=== PATIENT | male | born 1945 | race Caucasian/White ===

== ENCOUNTER 2018-09-11 11:19 | Outpatient (CLI) | payer OTHER, SELFPAY ==
[2018-09-11 13:33] LABS: ALT 24 U/L (12-78); AST 19 U/L (15-37); Albumin 4.5 g/dL (3.4-5.0); Alkaline Phosphatase 80 U/L (46-116); Anion Gap 8.4 mmol/L (3-11); BUN 18 mg/dL (7-18); Bilirubin, Total 1.1 mg/dL (0.2-1.0); CO2 29.6 mmol/L (21.0-32.0); CREATININE 0.91 mg/dL (0.70-1.30); Calcium 10.1 mg/dL (8.5-10.1); Chloride 102 mmol/L (98-107); Cholesterol 145 mg/dL (50-200); Glucose 103 mg/dL (70-100); HDL Cholesterol 65 mg/dL (40-60); LDL CHOLESTEROL 63 mg/dL (<100); Potassium 4.5 mmol/L (3.5-5.1); Sodium 140 mmol/L (136-145); Total Protein 7.6 g/dL (6.4-8.2); Triglyceride 61 mg/dL (30-150)
== END 2018-09-11 11:39 ==
PROVIDERS: PCP Family Medicine; Visit Provider Family Medicine
DX: I10 Essential (primary) hypertension (principal)
CPT/HCPCS: 36415; 80053; 80061; 83721

== ENCOUNTER 2020-04-29 03:40 | Outpatient (CLI) | payer OTHER, SELFPAY ==
[2020-04-29 13:10] LABS: ALT 19 U/L (16-63); AST 17 U/L (15-37); Albumin 4.4 g/dL (3.4-5.0); Alkaline Phosphatase 76 U/L (46-116); Anion Gap 5.4 mmol/L (3-11); BUN 13 mg/dL (7-18); Bilirubin, Total 1.3 mg/dL (0.2-1.0); CO2 29.6 mmol/L (21.0-32.0); CREATININE 0.76 mg/dL (0.70-1.30); Calculated LDL 41 mg/dL (<100); Chloride 104 mmol/L (98-107); Cholesterol 107 mg/dL (<200); Glucose 84 mg/dL (74-106); HDL Cholesterol 55 mg/dL (40-60); Potassium 4.5 mmol/L (3.5-5.1); Sodium 139 mmol/L (136-145); Triglyceride 57 mg/dL (<150)
[2020-04-29 22:30] LABS: PSA, Diagnostic 4.6 ng/mL (0.0-6.5)
== END 2020-04-29 04:00 ==
PROVIDERS: PCP Family Medicine; Visit Provider Family Medicine
DX: E78.5 Hyperlipidemia, unspecified (principal); I25.10 Atherosclerotic heart disease of native coronary artery without angina pectoris; N40.0 Benign prostatic hyperplasia without lower urinary tract symptoms
CPT/HCPCS: 36415; 80053; 80061; 84153

== ENCOUNTER 2020-12-18 03:01 | Outpatient (CLI) | payer OTHER, SELFPAY ==
[2020-12-18 12:53] LABS: ALT 19 U/L (16-63); AST 14 U/L (15-37); Albumin 4.4 g/dL (3.4-5.0); Alkaline Phosphatase 65 U/L (46-116); Anion Gap 9.8 mmol/L (3-11); BUN 16 mg/dL (7-18); Bilirubin, Total 1.4 mg/dL (0.2-1.0); CO2 28.2 mmol/L (21.0-32.0); CREATININE 1.1 mg/dL (0.70-1.30); Calcium 9.2 mg/dL (8.5-10.1); Calculated LDL 58 mg/dL (<100); Chloride 102 mmol/L (98-107); Cholesterol 132 mg/dL (<200); Glucose 113 mg/dL (74-106); HDL Cholesterol 53 mg/dL (40-60); Potassium 4.4 mmol/L (3.5-5.1); Sodium 140 mmol/L (136-145); Total Protein 7.1 g/dL (6.4-8.2); Triglyceride 107 mg/dL (<150)
[2020-12-18 18:11] LABS: PSA, Diagnostic 4.4 ng/mL (0.0-6.5)
== END 2020-12-18 03:02 | disposition home or self-care (01) ==
LOC: LOS 03:01
PROVIDERS: PCP Family Medicine; Visit Provider Family Medicine
DX: I10 Essential (primary) hypertension (principal); I25.10 Atherosclerotic heart disease of native coronary artery without angina pectoris; N40.0 Benign prostatic hyperplasia without lower urinary tract symptoms
CPT/HCPCS: 36415; 80053; 80061; 84153

== ENCOUNTER 2021-05-06 15:59 | Inpatient (IN) | payer OTHER, SELFPAY ==
[2021-05-06] VITALS (27 sets, daily range): BP systolic 116–162; BP diastolic 60–87; PULSE 62–73; RESP 10–23; TEMP 35.5–36.5; O2SAT 95–98
--- NOTE | 2021-05-06 16:00 | RT.EKG_ITS ---
APPROVED REPORT Exam: Resting ECG Reason for Exam: possible stroke Patient Location: E HR:67 bpm ECG Measurements Heart Rate 67 AXIS [place] 162 P 55 QRSd 80 QRS 26 QT 376 T 37 QTc 397 Conclusion Sinus rhythm...normal P axis, V-rate 60- 99
--- NOTE | 2021-05-06 16:45 | DI.CT_ITS ---
Exam(s) CT BRAIN NECK CTA EXAM: CT BRAIN NECK CTA CLINICAL HISTORY: cva, rt facial droop. TECHNIQUE: Imaging Protocol: Axial CT angiography was performed with multi-slice acquisition and mu lti-planar and/or 3D reconstructions. CONTRAST MATERIAL: Intravenous: Omnipaque 350 Contrast volume:85 cc COMPARISON: No exams were available for comparison FINDINGS: CT Head W/O and W contrast: Ventricles and Extra axial spaces: Normal in size and morphology for the patient's age. Hemorrhage: None. Cerebral parenchyma: mild white matter changes of small vessel disease. Mild atrophy. Midline shift: None. Brainstem/Cerebellum: Normal. Calvarium: Normal. Visualized Paranasal sinuses/Mastoids: Clear. Soft Tissues: Unremarkable. Enhancement: Normal. CTA Brain W: Internal Carotid Arteries: Petrous: Normal. Cavernous: Normal. Cerebral: Normal. Middle Cerebral Arteries: Right: No aneurysm, occlusion or significant stenosis. Left: No aneurysm, occlusion or significant stenosis. Anterior Cerebral Arteries: Right: No aneurysm, occlusion or significant stenosis. Left: No aneurysm, occlusion or significant stenosis. Posterior cerebral Arteries: Right: No aneurysm, occlusion or significant stenosis. Left: No aneurysm, occlusion or significant stenosis. Vertebral Arteries: Right: No aneurysm, occlusion or significant stenosis. Left: No aneurysm, occlusion or significant stenosis. Basilar Artery: No aneurysm, occlusion or significant stenosis. CTA Neck W: Common Carotid: Right: No aneurysm, occlusion or significant stenosis. Scattered calcific plaque. Left: No aneurysm, occlusion or significant stenosis. Scattered calcific plaque. External Carotid: Right: No aneurysm, occlusion or significant stenosis. Left: No aneurysm, occlusion or significant stenosis. Internal Carotid: Right: No aneurysm, occlusion or significant stenosis. Calcific plaque proximally. Proximal 50 pe rcent stenosis. Left: No aneurysm, occlusion or significant stenosis. Calcific plaque proximally. Mild stenosis, l ess than 50 percent. Vertebral Artery: Right: No aneurysm, occlusion or significant stenosis. Left: No aneurysm, occlusion or significant stenosis. Lung Apices: Emphysematous changes. Bones: Degenerative changes in the cervical spine. Soft Tissues: Normal. IMPRESSION: 1. Normal CTA examination of the [place]. 2. Mild atrophy and white matter changes of small vessel disease. 3. Calcific plaque in the proximal internal carotid arteries. Approximate 50 percent stenosis right proximal internal carotid artery. Mild, less than 50 percent, stenosis of proximal left internal car otid artery. RADIATION DOSE DELIVERED: 2,152.34mGy.cm Total DLP DATA REPOSITORY: All CT scans at this facility are submitted to the National Radiology Data Registry (NRDR) Dose Index Registry (DIR) with the [employer] (ACR). RADIATION OPTIMIZATION: All CT scans at this facility use at least one of these dose optimization te chniques: automated exposure control; mA and/or kV adjustment per patient size (includes targeted exa ms where dose is matched to clinical indication); or iterative reconstruction.
[2021-05-06 17:19] LABS: Abs Immature Grans 0.06 10^3/uL (0.0-0.06); Absolute Basophil Count 0.03 10^3/uL (0.0-0.2); Absolute Eosinophil Count 0.11 10^3/uL (0.0-0.7); Absolute Lymphocyte Count 0.92 10^3/uL (1.2-3.4); Absolute Monocyte Count 0.94 10^3/uL (0.1-0.8); Absolute Neutrophil Count 7.55 10^3/uL (1.2-6.7); Basophils % 0.3; Eosinophils % 1.1; HCT 46.4 % (40.0-50.0); HGB 16.2 g/dL (13.5-17.5); Immature Grans % 0.6; Lymphocytes % 9.6; MCH 34.9 pg (27.0-33.0); MCHC 34.9 % (32.0-36.0); MPV 8.8 fL (8.0-11.0); Monocytes % 9.8; Neutrophils % 78.6; Nucleated RBC 0 %; Platelet Count 191 10^3/uL (130-400); RBC 4.64 10^6/uL (4.36-5.78); RDW 12.5 % (11.8-14.1); RDW-SD 46.9 fL; WBC 9.61 10^3/uL (4.4-10.8)
[2021-05-06 17:22] LABS: Source Nasal/Nares
[2021-05-06 17:28] LABS: Magnesium 2.1 mg/dL (1.8-2.4)
[2021-05-06 17:35] LABS: ALT 18 U/L (16-63); AST 20 U/L (15-37); Albumin 4.3 g/dL (3.4-5.0); Alkaline Phosphatase 56 U/L (46-116); Anion Gap 6.7 mmol/L (3-11); BUN 14 mg/dL (7-18); Bilirubin, Total 1.7 mg/dL (0.2-1.0); CO2 29.3 mmol/L (21.0-32.0); CREATININE 0.8 mg/dL (0.70-1.30); Calcium 9.5 mg/dL (8.5-10.1); Chloride 100 mmol/L (98-107); Glucose 88 mg/dL (74-106); Sodium 136 mmol/L (136-145); Total Protein 7.2 g/dL (6.4-8.2)
[2021-05-06 17:36] LABS: Troponin I < 0.05 ng/mL (<0.06)
[2021-05-06] MEDS: Omnipaque 350 MG/ML 100 ML BTL IJ (17:49)
--- NOTE | 2021-05-06 17:52 | W.ED.GENAD ---
Discharge Plan Disposition Patient Disposition: [facility] INPATIENT Condition: Serious Discharge Details Clinical Impression: Weakness on right side of face, Acute CVA (cerebrovascular accident) Primary Care Provider: Aysha Odonnell ED Provider: Deny Navarro Home Meds and New Rx's Prescriptions: No Action pravastatin 20 mg tablet 20 mg PO DAILY Qty: 90 RF: 4 nitroglycerin [Nitrostat] 0.4 mg tablet, sublingual 0.4 mg Sublingual PRN Qty: 25 RF: 3 metoprolol succinate 50 mg tablet extended release 24 hr 50 mg PO DAILY Qty: 90 RF: 4 meloxicam 15 mg tablet 15 mg PO DAILY PRN (Reason: pain (scale score 4-6)) Qty: 90 RF: 5 hydrochlorothiazide 12.5 mg tablet 12.5 mg PO QAM Qty: 90 RF: 4 hydrocodone-acetaminophen 5-325 mg tablet 2 tab PO TID MDD 6 PRN (Reason: pain) Qty: 42 RF: 0 aspirin [Ecotrin] 325 MG tablet,delayed release (DR/EC) 325 mg PO DAILY RF: 0 Medical Decision Making 75-year-old male with history of hypertension, hyperlipidemia, arteriosclerotic cardiovascular disease, polycythemia vera, here with generalized weakness, fatigue and mild intermittent headache over the past 3 days. Also now with drooling and right facial droop over the past 2 days. EKG was reviewed and interpreted by me: Please see report, sinus rhythm and nondiagnostic. Concern concern for CVA. CT/ CTA of the head was interpreted by radiology: IMPRESSION: 1. No acute intracranial findings on initial unenhanced images. 2. Diffuse cerebral atrophy and age-related periventricular white matter changes. 3. CTA head within normal limits. No large vessel occlusion. No aneurysm. 4. ASPECTS ([place] Stroke Program Early CT Score) = 10. CTA of the neck was interpreted by radiology: IMPRESSION: 1. Calcific plaque involving the origin and proximal portion of the right internal carotid artery producing 50% stenosis. 2. Calcified plaque involving the origin and proximal portion of the left internal carotid artery producing 30% stenosis. 3. Patent vertebral arteries. Patient was given aspirin 325 mg. Plan to admit for observation for CVA. I called and spoke with Dr. Veliz, discussed ED presentation and course, he will admit the patient. Lab Data Lab results reviewed: Yes I reviewed the patient's lab results. HPI General Mode of arrival: ambulatory. Date/Time Provider Initiated Documentation: 05/06/21 16:54. Limitations to Documentation: no limitations. Information obtained by: patient. HPI Narrative: 75-year-old male with multiple medical problems occluding history of hypertension, hyperlipidemia, polycythemia vera, ASCVD, here with chief complaints of facial weakness. Patient notes feeling fatigued for the past 3 days with associated dizziness and generalized weakness. He states he has had a mild headache that has been intermittent since onset. Patient notes right facial weakness over the past 2 days. He states he is woke up drooling from the right side of his mouth. Symptoms are moderate. No modifiers. No prior history of CVA. Related Data Home Medications Medication Instructions Recorded Confirmed aspirin [Ecotrin] 325 mg PO DAILY tab-cap 01/26/13 05/06/21 hydrochlorothiazide 12.5 mg tablet 12.5 mg PO QAM #90 tab 03/30/21 05/06/21 hydrocodone 5 mg-acetaminophen 325 2 tab PO TID PRN #42 tab MDD 6 03/30/21 05/06/21 mg tablet meloxicam 15 mg tablet 15 mg PO DAILY PRN #90 tab 03/30/21 05/06/21 metoprolol succinate 50 mg 50 mg PO DAILY #90 tab 03/30/21 05/06/21 tablet,extended release 24 hr nitroglycerin 0.4 mg sublingual 0.4 mg SUBLINGUAL PRN #25 tab 03/30/21 05/06/21 tablet pravastatin 20 mg tablet 20 mg PO DAILY #90 tab-cap 03/30/21 05/06/21 Previous Rx's Medication Instructions Recorded hydrochlorothiazide 12.5 mg tablet 12.5 mg PO QAM #90 tab 03/30/21 hydrocodone 5 mg-acetaminophen 325 2 tab PO TID PRN #42 tab MDD 6 03/30/21 mg tablet meloxicam 15 mg tablet 15 mg PO DAILY PRN #90 tab 03/30/21 metoprolol succinate 50 mg 50 mg PO DAILY #90 tab 03/30/21 tablet,extended release 24 hr nitroglycerin 0.4 mg sublingual 0.4 mg SUBLINGUAL PRN #25 tab 03/30/21 tablet pravastatin 20 mg tablet 20 mg PO DAILY #90 tab-cap 03/30/21 Allergies Allergy/AdvReac Type Severity Reaction Status Date / Time No Known Allergies Allergy Unverified 05/06/21 16:07 General Stated Complaint: CVA/TIA SREEDHAR: 2 Review of Systems All systems reviewed & are unremarkable except as noted in HPI and below Constitutional Constitutional: Denies fever(s) Cardiovascular Cardiovascular: Denies chest pain Neurologic Neurologic: Reports as per HPI [facility] Medical History Alcohol abuse 10/03/08 quit 2004 ASCVD (arteriosclerotic cardiovascular disease) Chronic pain disorder CONTRACT 01/19/16 06/06/17 CONTROLLED SUBSTANCE AGREEMENT~RENEWED Cyst of kidney, acquired RIGHT; stent placed approx. 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 Heart disease Brother Diabetes Heart disease Grandfather No problems noted. Grandfather No problems noted. Grandmother No problems noted. Grandmother No problems noted. Sister No problems noted. Sister No problems noted. Sister No problems noted. Brother Neoplasm Brother Stroke Son No problems noted. Daughter No problems noted. Daughter No problems noted. Social History Smoking/Tobacco Use Status: Former Tobacco Use Quit Date: 09/05/06 Second Hand Exposure: Yes Smoking risk assessment performed?: Yes Alcohol Intake: former Drug use: Never Substance use type: does not use Caregiver/Support person: No Household members: spouse Housing: house Communication Needs: None Do you need help understanding health information?: Rarely Pets and animals: Yes Pets and animals: cat(s) and dog(s) Sexually active: Yes Do you think of yourself as: straight/heterosexual Current gender identity: male What is your relationship status?: How often do you talk on the phone with friends or family?: twice per week How often do you get together with friends or relatives?: once per week How often do you attend restorationist or taoism services?: decline to answer Do you belong to any clubs or organized social groups?: no Panel score (0-1 are the most socially isolated patients): 2 What type of physical activity do you participate in: running Duration: 45-60 minutes/day Frequency: 1-2 times per week Rubia/Orthodoxy: Lutheran Special rubia needs: No Seatbelt use: sometimes Drive intox or ride w/intox sales warehouse driver: No Do you feel safe at home: Yes Do you feel safe in your relationship?: Yes Exam Const General: cooperative and no acute distress HENMT Head: normocephalic and atraumatic Mouth: moist mucous membranes Eyes Conjunctivae: normal conjunctivae Sclera: normal sclerae EOM: EOM intact bilaterally Neck Neck: trachea midline and supple Resp Auscultation: clear to auscultation bilaterally, no rales, no rhonchi and no wheezes Cardio Rate: regular rate and not tachycardic Rhythm: regular rhythm GI Palpation: soft, not firm, no guarding, no masses, not rigid and nontender Skin General skin exam: no rashes or lesions noted Neuro General: patient alert, patient awake, patient oriented x3 and tone normal Cranial Nerves: PERRL, accommodation normal, EOM intact bilaterally, no nystagmus, facial strength abnormal, tongue midline and able to elevate shoulders bilaterally Cognition: normal cognition Speech: speech normal Motor: strength 5/5 throughout (Extremities) and other (Mild right facial droop sparing right forehead) Sensory Exam: no sensory deficits noted Extrem General: no edema Psych Appearance: grossly normal Mental Status: mental status grossly normal Speech and Movement: speech and movement normal Course Vital Signs Vital signs: Vital Signs Pulse 66 05/06/21 16:03 Respiratory Rate 18 05/06/21 16:03 Blood Pressure 148/74 H 05/06/21 16:03 Pulse Oximetry 98 05/06/21 16:03 Pulse 66 05/06/21 16:03 Respiratory Rate 18 05/06/21 16:03 Respiratory Effort Non-Labored 05/06/21 16:09 Blood Pressure 148/74 H 05/06/21 16:03 Blood Pressure Position Sitting 05/06/21 16:03 Pulse Oximetry 98 05/06/21 16:03 Oxygen Delivery Method Room Air 05/06/21 16:03 Oxygen Flow Rate 0 05/06/21 16:03 Pain Level 6 05/06/21 16:03 Lab/Test Results Lab/Test Results: Laboratory Tests Range/Units 05/06/21 05/06/21 05/06/21 16:40 16:40 16:40 WBC (4.4-10.8) 10^3/uL 9.61 RBC (4.36-5.78) 10^6/uL 4.64 Hgb (13.5-17.5) g/dL 16.2 Hct (40.0-50.0) % 46.4 MCV (80-95) fL 100.0 H MCH (27.0-33.0) pg 34.9 H MCHC (32.0-36.0) % 34.9 RDW (11.8-14.1) % 12.5 Plt Count (130-400) 10^3/uL 191 MPV (8.0-11.0) fL 8.8 Immature Gran % 0.6 Neutrophils % 78.6 Lymphocytes % 9.6 Monocytes % 9.8 Eosinophils % 1.1 Basophils % 0.3 Nucleated RBC % % 0 Absolute Neutrophils (1.2-6.7) 10^3/uL 7.55 H Absolute Lymphocytes (1.2-3.4) 10^3/uL 0.92 L Absolute Monocytes (0.1-0.8) 10^3/uL 0.94 H Absolute Eosinophils (0.0-0.7) 10^3/uL 0.11 Absolute Basophils (0.0-0.2) 10^3/uL 0.03 Sodium (136-145) mmol/L 136 Potassium (3.5-5.1) mmol/L 4.0 Chloride (98-107) mmol/L 100 Carbon Dioxide (21.0-32.0) mmol/L 29.3 Anion Gap (3-11) mmol/L 6.7 BUN (7-18) mg/dL 14 Creatinine (0.70-1.30) mg/dL 0.8 Estimated GFR/1.73 m2 (mL/min/1.73m2) >= 60.00 Glucose (74-106) mg/dL 88 Calcium (8.5-10.1) mg/dL 9.5 Magnesium (1.8-2.4) mg/dL 2.1 Total Bilirubin (0.2-1.0) mg/dL 1.7 H AST (15-37) U/L 20 ALT (16-63) U/L 18 Alkaline Phosphatase (46-116) U/L 56 Troponin I (<0.06) ng/mL < 0.05 Total Protein (6.4-8.2) g/dL 7.2 Albumin (3.4-5.0) g/dL 4.3 COVID-19 Source Range/Units 05/06/21 17:06 WBC (4.4-10.8) 10^3/uL RBC (4.36-5.78) 10^6/uL Hgb (13.5-17.5) g/dL Hct (40.0-50.0) % MCV (80-95) fL MCH (27.0-33.0) pg MCHC (32.0-36.0) % RDW (11.8-14.1) % Plt Count (130-400) 10^3/uL MPV (8.0-11.0) fL Immature Gran % Neutrophils % Lymphocytes % Monocytes % Eosinophils % Basophils % Nucleated RBC % % Absolute Neutrophils (1.2-6.7) 10^3/uL Absolute Lymphocytes (1.2-3.4) 10^3/uL Absolute Monocytes (0.1-0.8) 10^3/uL Absolute Eosinophils (0.0-0.7) 10^3/uL Absolute Basophils (0.0-0.2) 10^3/uL Sodium (136-145) mmol/L Potassium (3.5-5.1) mmol/L Chloride (98-107) mmol/L Carbon Dioxide (21.0-32.0) mmol/L Anion Gap (3-11) mmol/L BUN (7-18) mg/dL Creatinine (0.70-1.30) mg/dL Estimated GFR/1.73 m2 (mL/min/1.73m2) Glucose (74-106) mg/dL Calcium (8.5-10.1) mg/dL Magnesium (1.8-2.4) mg/dL Total Bilirubin (0.2-1.0) mg/dL AST (15-37) U/L ALT (16-63) U/L Alkaline Phosphatase (46-116) U/L Troponin I (<0.06) ng/mL Total Protein (6.4-8.2) g/dL Albumin (3.4-5.0) g/dL COVID-19 Source Nasal/Nares
--- NOTE | 2021-05-06 18:15 | DI.VRAD_ITS ---
PROCEDURE INFORMATION: Exam: CT Angiography Head With Contrast, Arteriography Exam date and time: 05/06/2021 4:57 PM Age: 75 years old Clinical indication: CVA, RT facial droop TECHNIQUE: Imaging protocol: Computed tomography angiography of the head with contrast. Exam focused on the arteries. 3D rendering (Not supervised by radiologist): MIP and/or 3D reconstructed images were created by the technologist. Radiation optimization: All CT scans at this facility use at least one of these dose optimization techniques: automated exposure control; mA and/or kV adjustment per patient size (includes targeted exams where dose is matched to clinical indication); or iterative reconstruction. Contrast material: OMNIPAQUE 350; Contrast volume: 85 ml; Contrast route: INTRAVENOUS (IV); COMPARISON: No relevant prior studies available. FINDINGS: ANTERIOR CIRCULATION: Right internal carotid artery: Unremarkable. Intracranial segment is patent with no significant stenosis. No aneurysm. Right middle cerebral artery: Unremarkable. No occlusion or significant stenosis. No aneurysm. Right anterior cerebral artery: Unremarkable. No occlusion or significant stenosis. No aneurysm. Left internal carotid artery: Unremarkable. Intracranial segment is patent with no significant stenosis. No aneurysm. Left middle cerebral artery: Unremarkable. No occlusion or significant stenosis. No aneurysm. Left anterior cerebral artery: Unremarkable. No occlusion or significant stenosis. No aneurysm. POSTERIOR CIRCULATION: Right vertebral artery: Unremarkable. No occlusion or significant stenosis. No aneurysm. Left vertebral artery: Unremarkable. No occlusion or significant stenosis. No aneurysm. Basilar artery: Unremarkable. No occlusion or significant stenosis. No aneurysm. Right posterior cerebral artery: Unremarkable. No occlusion or significant stenosis. No aneurysm. Left posterior cerebral artery: Unremarkable. No occlusion or significant stenosis. No aneurysm. Brain: Periventricular white matter areas of decreased density which are likely secondary to chronic ischemia from microvascular change. Scattered old lacunar infarcts in each basal ganglia region. No acute intracranial hemorrhage. Diffuse cerebral atrophy. Cerebral ventricles: Ventricular prominence in this patient with diffuse cerebral atrophy. Bones/joints: Unremarkable. No acute fracture. Mastoid air cells: No mastoiditis. Soft tissues: Unremarkable. Paranasal sinuses: Trace fluid in the dependent portion of the right maxillary sinus. Partial ethmoid and right sphenoid sinusitis. IMPRESSION: 1. No acute intracranial findings on initial unenhanced images. 2. Diffuse cerebral atrophy and age-related periventricular white matter changes. 3. CTA head within normal limits. No large vessel occlusion. No aneurysm. 4. ASPECTS ([place] Stroke Program Early CT Score) = 10. PROCEDURE INFORMATION: Exam: CT Angiography Neck With Contrast Exam date and time: 05/06/2021 4:57 PM Age: 75 years old Clinical indication: CVA, RT facial droop TECHNIQUE: Imaging protocol: Computed tomography angiography of the neck with contrast. 3D rendering (Not supervised by radiologist): MIP and/or 3D reconstructed images were created by the technologist. Radiation optimization: All CT scans at this facility use at least one of these dose optimization techniques: automated exposure control; mA and/or kV adjustment per patient size (includes targeted exams where dose is matched to clinical indication); or iterative reconstruction. Contrast material: OMNIPAQUE 350; Contrast volume: 85 ml; Contrast route: INTRAVENOUS (IV); COMPARISON: No relevant prior studies available. FINDINGS: Right common carotid artery: Scattered calcific plaque within the right common carotid artery without significant stenosis or occlusion. Right internal carotid artery: Calcific plaque involving the origin and proximal portion of the right internal carotid artery producing 50% stenosis. Right external carotid artery: No occlusion or stenosis of the origin. Left common carotid artery: Scattered calcific plaque within the left common carotid artery without significant stenosis or occlusion. Left internal carotid artery: Calcified plaque involving the origin and proximal portion of the left internal carotid artery producing 30% stenosis. Left external carotid artery: No occlusion or stenosis of the origin. Right vertebral artery: No stenosis. No dissection or occlusion. Left vertebral artery: No stenosis. No dissection or occlusion. Soft tissues: Normal. No significant soft tissue swelling. Bones/joints: No acute fracture. Lungs: Scattered bulla within each superior lung. IMPRESSION: 1. Calcific plaque involving the origin and proximal portion of the right internal carotid artery producing 50% stenosis. 2. Calcified plaque involving the origin and proximal portion of the left internal carotid artery producing 30% stenosis. 3. Patent vertebral arteries. REFERENCES: NASCET CRITERIA. The degree of internal carotid artery stenosis is based on NASCET criteria. Normal is no stenosis. Mild is less than 50% stenosis. Moderate is 50-69% stenosis. Severe is 70% to 99% stenosis. Total occlusion is no detectable patent lumen. Dictated and Authenticated by: Gordo Martin MD. Ordering:ANMOL Barclay MD
[2021-05-06] MEDS: Aspirin 325 MG TAB PO (19:12)
[2021-05-06 19:41] LABS: COVID-19 PCR Negative (Negative)
--- NOTE | 2021-05-06 21:52 | HPE_ITS ---
Date of service: 05/06/21 Time of Service: 21:52 Assessment and Plan Assessment and plan (1) Weakness on right side of face: Status: Acute Assessment and plan: Concerned for a TIA vs resolved stroke. MRI head scheduled for tomorrow. Telemetry. Echocardiogram. Speech consulted but given resolution of the right perioral facial droop this may not be necessary. He was already taking an aspirin 325mg daily. Gave plavix. Continue or discontinue pending the MRI results. Neurology consult placed. May not need pending MRI results. He is on Pravastatin 20mg daily. Lipid panel in AM. (2) ASCVD (arteriosclerotic cardiovascular disease): Status: Chronic Assessment and plan: Cont Aspirin and metoprolol. Cont statin; may need higher dose statin pending MRI results and lipid profile results. (3) Polycythemia vera: Status: Chronic Assessment and plan: Resolved with tobacco cessation. (4) Essential hypertension: Status: Chronic Assessment and plan: Cont Metoprolol and monitor (5) Elevated MCV: Status: Acute Assessment and plan: Check B12 and folate levels. History of Present Illness History of Present Illness Chief Complaint: Right facial weakness Narrative: This is a 75 yo male with a PMH of HTN, HLD, polycythemia mell, ASCVD, chronic pain disorder. He presented to the ED with feeling fatigued for the past 3 days. + generalized weakness and intermittent dizziness. He was particularly concerned with 2 day h/o R sided facial weakness causing him to drool out of the right side of his mouth. No visual changes. No unilateral weakness of an extremity. No dysarthria, aphasia. + mild WILLIAMSON. No F/C. W/U in the ED: CT/CTA head w/o acute findings. CTA neck with right ICA stenosis of appx 50%. Left ICA stenosis of 30%. BP ranged from 110's to 160. Lab unremarkable other than an MCV of 100. Total bilirubin of 1.7. Normal LFTs. Review of Systems All systems reviewed & are unremarkable except as noted in HPI and below PFSH Medical History Alcohol abuse 10/03/08 quit 2004 ASCVD (arteriosclerotic cardiovascular disease) Chronic pain disorder CONTRACT 01/19/16 06/06/17 CONTROLLED SUBSTANCE AGREEMENT~RENEWED Cyst of kidney, acquired RIGHT; stent placed approx. 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 Heart disease Brother Diabetes Heart disease Grandfather No problems noted. Grandfather No problems noted. Grandmother No problems noted. Grandmother No problems noted. Sister No problems noted. Sister No problems noted. Sister No problems noted. Brother Neoplasm Brother Stroke Son No problems noted. Daughter No problems noted. Daughter No problems noted. Social History Smoking/Tobacco Use Status: Former Tobacco Use Quit Date: 09/05/06 Second Hand Exposure: Yes Smoking risk assessment performed?: Yes Alcohol Intake: former Drug use: Never Substance use type: does not use Caregiver/Support person: No Household members: spouse Housing: house Communication Needs: None Do you need help understanding health information?: Rarely Pets and animals: Yes Pets and animals: cat(s) and dog(s) Sexually active: Yes Do you think of yourself as: straight/heterosexual Current gender identity: male What is your relationship status?: How often do you talk on the phone with friends or family?: twice per week How often do you get together with friends or relatives?: once per week How often do you attend baptism or confucianist services?: decline to answer Do you belong to any clubs or organized social groups?: no Panel score (0-1 are the most socially isolated patients): 2 What type of physical activity do you participate in: running Duration: 45-60 minutes/day Frequency: 1-2 times per week Rubia/Worship: Buddhism Special rubia needs: No Seatbelt use: sometimes 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 Do you feel safe at home: Yes Do you feel safe in your relationship?: Yes Meds Allergies and Home Medications Allergies Allergy/AdvReac Type Severity Reaction Status Date / Time No Known Allergies Allergy Unverified 05/06/21 16:07 Home Medications Medication Instructions Recorded Confirmed Type aspirin [Ecotrin] 325 mg PO DAILY tab-cap 01/26/13 05/06/21 History hydrochlorothiazide 12.5 mg tablet 12.5 mg PO QAM #90 tab 03/30/21 05/06/21 Rx hydrocodone 5 mg-acetaminophen 325 2 tab PO TID PRN #42 tab MDD 6 03/30/21 05/06/21 Rx mg tablet meloxicam 15 mg tablet 15 mg PO DAILY PRN #90 tab 03/30/21 05/06/21 Rx metoprolol succinate 50 mg 50 mg PO DAILY #90 tab 03/30/21 05/06/21 Rx tablet,extended release 24 hr nitroglycerin 0.4 mg sublingual 0.4 mg SUBLINGUAL PRN #25 tab 03/30/21 05/06/21 Rx tablet pravastatin 20 mg tablet 20 mg PO DAILY #90 tab-cap 03/30/21 05/06/21 Rx Exam Const General: cooperative and no acute distress Nutritional Appearance: thin Orientation: alert, oriented to person and oriented to place HENNY Head: normocephalic and atraumatic Neck Neck: full ROM and no JVD Resp Effort & Inspection: normal respiratory effort Auscultation: clear to auscultation bilaterally Cardio Rate: regular rate Rhythm: regular rhythm Heart Sounds: S1 normal and S2 normal GI Palpation: soft and nontender Skin General skin exam: no rashes or lesions noted Neuro General: no focal motor deficits Cranial Nerves: no nystagmus and tongue midline Speech: speech normal Extrem General: no pedal edema and no calf tenderness Results Labs Result diagrams: 05/06/21 16:40 05/06/21 16:40 Labs: Laboratory Results - last 24 hr 05/06/21 05/06/21 05/06/21 16:40 16:40 16:40 WBC 9.61 RBC 4.64 Hgb 16.2 Hct 46.4 MCV 100.0 H MCH 34.9 H MCHC 34.9 RDW 12.5 Plt Count 191 MPV 8.8 Immature Gran % 0.6 Neutrophils % 78.6 Lymphocytes % 9.6 Monocytes % 9.8 Eosinophils % 1.1 Basophils % 0.3 Nucleated RBC % 0 Absolute Neutrophils 7.55 H Absolute Lymphocytes 0.92 L Absolute Monocytes 0.94 H Absolute Eosinophils 0.11 Absolute Basophils 0.03 Sodium 136 Potassium 4.0 Chloride 100 Carbon Dioxide 29.3 Anion Gap 6.7 BUN 14 Creatinine 0.8 Estimated GFR/1.73 m2 >= 60.00 Glucose 88 Calcium 9.5 Magnesium 2.1 Total Bilirubin 1.7 H AST 20 ALT 18 Alkaline Phosphatase 56 Troponin I < 0.05 Total Protein 7.2 Albumin 4.3 COVID-19 Source SARS-CoV-2 (PCR) 05/06/21 17:06 WBC RBC Hgb Hct MCV MCH MCHC RDW Plt Count MPV Immature Gran % Neutrophils % Lymphocytes % Monocytes % Eosinophils % Basophils % Nucleated RBC % Absolute Neutrophils Absolute Lymphocytes Absolute Monocytes Absolute Eosinophils Absolute Basophils Sodium Potassium Chloride Carbon Dioxide Anion Gap BUN Creatinine Estimated GFR/1.73 m2 Glucose Calcium Magnesium Total Bilirubin AST ALT Alkaline Phosphatase Troponin I Total Protein Albumin COVID-19 Source Nasal/Nares SARS-CoV-2 (PCR) Negative Last Vital Signs Temp 36.5 C 05/06/21 21:28 Pulse 63 05/06/21 21:28 Resp 17 05/06/21 21:28 BP 137/64 05/06/21 21:28 Pulse Ox 96 05/06/21 21:28
[2021-05-06] MEDS: Clopidogrel 75 MG TAB PO (22:29)
[2021-05-06] MEDS: Pravastatin 20 MG TAB PO (22:29)
[2021-05-06] MEDS: Heparin 5,000 UNITS/ML VIAL 5000 UNITS SC (22:31)
[2021-05-06 23:04] LABS: Vitamin B12 86 pg/mL (193-986)
--- NOTE | 2021-05-07 | DI.MRI_ITS ---
Exam(s) MR BRAIN WO EXAM: MR BRAIN WO CLINICAL HISTORY: R sided facial droop TECHNIQUE: Multiplanar multisequence MRI of the brain was performed. COMPARISON: CT CT BRAIN NECK CTA from 05/06/[address] BRAIN NECK CTA from 05/06/2021 FINDINGS: VENTRICLES AND EXTRA AXIAL SPACES: Normal in size and morphology for the patient's age. MIDLINE SHIFT: None. CEREBRAL PARENCHYMA: No focus of restricted diffusion to suggest acute infarct. No space-occupying le morris identified. [id number] atrophy. Scattered high signal foci in the white matter likely re flecting chronic microvascular ischemia. There are prominent perivascular spaces. HEMORRHAGE: None. BRAINSTEM/CEREBELLUM: Normal. VISUALIZED PARANASAL SINUSES/MASTOIDS:Minimal maxillary and ethmoid sinus mucosal thickening. [place]: Normal flow void. P[place]: Unremarkable. OTHER FINDINGS: None. IMPRESSION: No evidence of acute infarct, hemorrhage or mass.. DATA REPOSITORY:
[2021-05-07 04:06] VITALS: BP 144/85; PULSE 64; RESP 18; TEMP 36.4; O2SAT 99
[2021-05-07] MEDS: Heparin 5,000 UNITS/ML VIAL 5000 UNITS SC ×2 (05:51→13:50)
[2021-05-07 07:01] LABS: Anion Gap 8.3 mmol/L (3-11); BUN 12 mg/dL (7-18); CO2 28.7 mmol/L (21.0-32.0); CREATININE 0.8 mg/dL (0.70-1.30); Calcium 9.3 mg/dL (8.5-10.1); Chloride 102 mmol/L (98-107); Glucose 95 mg/dL (74-106); Potassium 4.1 mmol/L (3.5-5.1); Sodium 139 mmol/L (136-145)
[2021-05-07 07:05] VITALS: PULSE 69
[2021-05-07 07:31] VITALS: BP 136/80; PULSE 63; RESP 20; TEMP 36.4; O2SAT 97
[2021-05-07 07:36] LABS: Calculated LDL 59 mg/dL (<100); Cholesterol 128 mg/dL (<200); HDL Cholesterol 59 mg/dL (40-60); TSH (W/Ref FT4) 2.41 uIU/mL (0.36-3.74); Triglyceride 52 mg/dL (<150)
[2021-05-07] MEDS: Aspirin E.C. 325 MG TABEC 81 MG PO (08:58)
[2021-05-07 10:58] LABS: Hemoglobin A1C 5.2 % (<5.7)
[2021-05-07] MEDS: Clopidogrel 75 MG TAB PO (11:08)
[2021-05-07 11:30] VITALS: BP 114/72; PULSE 67; RESP 18; TEMP 36.5; O2SAT 98
[2021-05-07] MEDS: LORazepam 1 MG TAB PO (11:38)
[2021-05-07] MEDS: Cyanocobalamin 1000 MCG/ML VIAL IM/SC (13:50)
--- NOTE | 2021-05-07 16:18 | W.NEUROCONSU ---
Date of service: 05/07/21 Time of Service: 16:18 Assessment and Plan Assessment and plan (1) B12 deficiency: Status: Acute (2) Parkinsons disease: Status: Chronic (3) Memory loss: Status: Acute Assessment and plan: Mr. Bernal is a 75 year-old, left-handed man who was admitted with generalized weakness and reported right face weakness of unclear duration and time. An MRI brain shows no evidence of acute or subacute infarct. I suspect his clinical symptoms are due to #1 as below. #1. Suspected Parkinsonism. He has clinical findings suggestive of Parkinsonism including resting tremor and bradykinesia. I discussed this diagnosis with his as likely contributing to his poor balance and feeling of weakness. 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 We discussed treatment with dopaminergic medications. He declined at this time. #2. Memory loss. Based on general discussion with him today, I strongly suspected cognitive loss. He has significant cerebrovascular disease on neuroimaging which is likely contributing. He also has a new diagnosis of vitamin B12 deficiency. Will plan to do cognitive testing at follow-up. He should continue aspirin 81mg daily. No need for clopidogrel from neuro stand point. #3. Vitamin B12 deficiency. Agree with continued B12 supplementation. He should follow-up in the neurology clinic in 4-6 weeks. History of Present Illness History of Present Illness Chief Complaint: right face weakness Narrative: Handedness: LEFT (daughter and grandson also) HPI: Mr. Bernal is a 75 year-old man with HTN, HLD, heart disease s/p stenting, p.vera (resolved after quitting smoking), renal cyst, BPH, and chronic pain. Mr. Bernal presented to the ED yesterday with reported 3 days of generalized weakness, fatigue, intermittent headaches, and dizziness. But also with 2 days of right facial droop and drooling that resolved by the time that he presented. Today, he notes that he has been weak and drooling for 1-2 weeks. He hadn't noted a facial droop but stated that it was his daughter who pointed it out. He notes that after (his) sister had a small stroke, it made him think that his symptoms could also have been stroke. His sister had her stroke 7-8 years ago..... so I didn't quite follow this. He has a tremor on exam. He states it has been present for about 2-3 months. He attributes it to nervousness and states that he is not bothered by it. He denies any problems with his memory. He states that his balance is very bad and has been declining, but can't state over what duration. He denies any falls. He denies constipations. He worked in [employer] and notes numerous chemical exposures over his lifetime. He is on aspirin 325mg + pravastatin 20mg as an outpatient. He was admitted for stroke work-up. Started on clopidogrel in addition to aspirin. He has undergone the work-up below. No urine studies performed. BP 110-160. Work-up: -CTH (05/06/21): moderate generalized atrophy. 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 Chronic small vessel disease changes. I reviewed these images personally and this is my personal interpretation. -CTA head/neck (05/06/21): read by Rads as 50% R and 30% L ICA stenosis. I noted bulky plaques but though both were <50% stenosis. I reviewed these images personally and this is my personal interpretation. -MRI brain (05/07/21): no acute findings. Moderate generalized atrophy. Lots of tiny old bilateral lacunes. Moderate chronic vascular disease. I reviewed these images personally and this is my personal interpretation. -Labs: Tbili 1.7, MCV 100, TSH 2.41, B12 86!, F 15, LDL 59 He was given 1000mcg IM B12 this am. Consults Requesting physician: Mauricio Veliz Review of Systems All systems reviewed & are unremarkable except as noted in HPI and below PFSH Medical History Alcohol abuse 10/03/08 quit 2004 ASCVD (arteriosclerotic cardiovascular disease) Chronic pain disorder CONTRACT 01/19/16 06/06/17 CONTROLLED SUBSTANCE AGREEMENT~RENEWED Cyst of kidney, acquired RIGHT; stent placed approx. 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 Heart disease Brother Diabetes Heart disease Grandfather No problems noted. Grandfather No problems noted. Grandmother No problems noted. Grandmother No problems noted. Sister No problems noted. Sister No problems noted. Sister No problems noted. Brother Neoplasm Brother Stroke Son No problems noted. Daughter No problems noted. Daughter No problems noted. Social History Smoking/Tobacco Use Status: Former Tobacco Use Quit Date: 09/05/06 Second Hand Exposure: Yes Smoking risk assessment performed?: Yes Alcohol Intake: former Drug use: Never Substance use type: does not use Caregiver/Support person: No Household members: spouse Housing: house Communication Needs: None Do you need help understanding health information?: Rarely Pets and animals: Yes Pets and animals: cat(s) and dog(s) Sexually active: Yes Do you think of yourself as: straight/heterosexual Current gender identity: male What is your relationship status?: How often do you talk on the phone with friends or family?: twice per week How often do you get together with friends or relatives?: once per week How often do you attend taoism or congregational services?: decline to answer Do you belong to any clubs or organized social groups?: no Panel score (0-1 are the most socially isolated patients): 2 What type of physical activity do you participate in: running Duration: 45-60 minutes/day Frequency: 1-2 times per week Rubia/Anglican: Anabaptism Special rubia needs: No Seatbelt use: sometimes Drive 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 325 Mg Tabec PO 81 mg DAILY ANTONIO Administration Clopidogrel Bisulfate 75 mg 05/08/21 08:30 Clopidogrel 75 Mg Tab PO DAILY ANTONIO Cyanocobalamin 1,000 mcg 05/08/21 08:30 Cyanocobalamin 500 Mcg Tab PO DAILY ANTONIO Dimethicone/Zinc Oxide 0 gm 05/06/21 19:47 Sherie Protect Cream 142 Gm Tube TP PRN PRN Heparin Sodium (Porcine) 5,000 units 05/06/21 22:00 05/07/21 13:50 Heparin 5,000 Units/Ml Vial SC 5,000 units Q8H ANTONIO Administration Sodium Chloride 500 mls @ 0 mls/hr 05/06/21 16:54 Saline 500ml Bag IV PRN PRN As Directed IV Miscellaneous Supplies 1 each 05/06/21 17:00 Iv Access IV DIRECTED ANTONIO Lorazepam 1 mg 05/07/21 09:00 05/07/21 11:38 Lorazepam 1 Mg Tab PO 05/07/21 18:00 1 mg LOGGING CONTRACTOR ANTONIO Administration Polyethylene Glycol 17 gm 05/06/21 19:47 Polyethylene Glycol 3350 17 Gm Packet PO DAILY PRN PRN Constipation Pravastatin Sodium 20 mg 05/06/21 22:00 05/06/21 22:29 Pravastatin 20 Mg Tab PO 20 mg QPM ANTONIO Administration Sodium Chloride 0 ml 05/06/21 16:54 Normal Saline Flush 10 Ml Syr IVP PRN PRN Allergies No Known Allergies Allergy (Unverified 05/06/21 16:07) Exam Narrative Exam Narrative: Physical Exam: Gen: Patient of apparent stated age, NAD, mild hypomimia Head and face: no facial or cranial abnormalities Neck: Supple, no meningismus, no occipital tenderness CV: + S1, S2, RRR, no murmur Resp: CTA B/L Abd: soft, nontender, nondistended Ext: No edema. No clubbing or cyanosis. No bony deformity. Neuro Exam: Language: fluency, naming, repetition, and comprehension intact; Mental Status: AAOxself; some confusion on location, current events and fund of knowledge limited; Speech: subtle dysarthria Cranial nerves: Funduscopy: not performed CN II: visual stephens intact CN III, IV, : extraocular movements intact, no nystagmus, pupils symmetric and reactive to light CN V: face sensation intact to LT and PP CN VII: slight flattening of the right nasolabial fold CN VIII: hearing intact bilaterally CN IX, X: palate rises symmetrically CN XI: trapezius/SCM 5/5 bilaterally CN XII: protrudes tongue symmetrically Sensory: intact to LT and PP in all extremities Motor: bulk intact. ?subtle bilateral UE cogwheel rigidity. Fine motor movements slightly reduced bilaterally. Mild diffuse bradykinesia, worse in the RUE and bilateral LE. No pronator drift. Strength 5/5 throughout including the deltoids, biceps, triceps, wrist extensors, hip flexors, knee flexors, knee extensors, ankle flexors, and ankle extensors. Intermittent RUE resting pill-rolling tremor. Reflexes: hyporeflexic throughout; toes neutral bilaterally; Coordination: FTN and HTS intact bilaterally Gait: slightly wide base; shuffling; reduced arm swing but present; no en bloc turning; slightly stooped Results Last Vital Signs Temp 36.5 C 05/07/21 11:30 Pulse 67 05/07/21 11:30 Resp 18 05/07/21 11:30 BP 114/72 05/07/21 11:30 Pulse Ox 98 05/07/21 11:30 Labs Result diagrams: 05/06/21 16:40 05/07/21 06:10 Labs: Laboratory Results - last 24 hr 05/06/21 05/06/21 05/06/21 16:40 16:40 16:40 WBC 9.61 RBC 4.64 Hgb 16.2 Hct 46.4 MCV 100.0 H MCH 34.9 H MCHC 34.9 RDW 12.5 Plt Count 191 MPV 8.8 Immature Gran % 0.6 Neutrophils % 78.6 Lymphocytes % 9.6 Monocytes % 9.8 Eosinophils % 1.1 Basophils % 0.3 Nucleated RBC % 0 Absolute Neutrophils 7.55 H Absolute Lymphocytes 0.92 L Absolute Monocytes 0.94 H Absolute Eosinophils 0.11 Absolute Basophils 0.03 Sodium 136 Potassium 4.0 Chloride 100 Carbon Dioxide 29.3 Anion Gap 6.7 BUN 14 Creatinine 0.8 Estimated GFR/1.73 m2 >= 60.00 Glucose 88 Hemoglobin A1c Calcium 9.5 Magnesium 2.1 Total Bilirubin 1.7 H AST 20 ALT 18 Alkaline Phosphatase 56 Troponin I < 0.05 Total Protein 7.2 Albumin 4.3 Triglycerides Total Cholesterol LDL Cholesterol, Calc HDL Cholesterol Vitamin B12 86 L Folate 15.0 TSH COVID-19 Source SARS-CoV-2 (PCR) 05/06/21 05/07/21 05/07/21 17:06 06:10 06:10 WBC RBC Hgb Hct MCV MCH MCHC RDW Plt Count MPV Immature Gran % Neutrophils % Lymphocytes % Monocytes % Eosinophils % Basophils % Nucleated RBC % Absolute Neutrophils Absolute Lymphocytes Absolute Monocytes Absolute Eosinophils Absolute Basophils Sodium 139 Potassium 4.1 Chloride 102 Carbon Dioxide 28.7 Anion Gap 8.3 BUN 12 Creatinine 0.8 Estimated GFR/1.73 m2 >= 60.00 Glucose 95 Hemoglobin A1c Calcium 9.3 Magnesium Total Bilirubin AST ALT Alkaline Phosphatase Troponin I Total Protein Albumin Triglycerides 52 Total Cholesterol 128 LDL Cholesterol, Calc 59 HDL Cholesterol 59 Vitamin B12 Folate TSH 2.41 COVID-19 Source Nasal/Nares SARS-CoV-2 (PCR) Negative 05/07/21 06:10 WBC RBC Hgb Hct MCV MCH MCHC RDW Plt Count MPV Immature Gran % Neutrophils % Lymphocytes % Monocytes % Eosinophils % Basophils % Nucleated RBC % Absolute Neutrophils Absolute Lymphocytes Absolute Monocytes Absolute Eosinophils Absolute Basophils Sodium Potassium Chloride Carbon Dioxide Anion Gap BUN Creatinine Estimated GFR/1.73 m2 Glucose Hemoglobin A1c 5.2 Calcium Magnesium Total Bilirubin AST ALT Alkaline Phosphatase Troponin I Total Protein Albumin Triglycerides Total Cholesterol LDL Cholesterol, Calc HDL Cholesterol Vitamin B12 Folate TSH COVID-19 Source SARS-CoV-2 (PCR)
[2021-05-07 16:28] VITALS: PULSE 73
--- NOTE | 2021-05-07 17:01 | PDOC.CMIN ---
- If Service Date Differs Date of service: 05/07/21 Time of Service: 17:01 Care Management Initial Assess REASON FOR HOSPITALIZATION:: Right Side facial weakness PAST MEDICAL HISTORY/PAST SURGICAL HISTORY:: Alcohol abuse. 10/03/08 quit 2004. ASCVD (arteriosclerotic cardiovascular disease). Chronic pain disorder. CONTRACT 01/19/16. 06/06/17 CONTROLLED SUBSTANCE AGREEMENT~RENEWED. Cyst of kidney, acquired. RIGHT; stent placed approx. 2 1/2 years ago. Diverticulosis of colon without diverticulitis. SIGMOID COLECTOMY; unable to have another colonoscopy due to cost. Essential hypertension (06/27/13). H/O sigmoidoscopy. Herpes zoster. 06/04/05 OD. Herpes zoster (06/04/05). History of alcoholism. Hyperlipidemia. Lumbar disc prolapse with compression radiculopathy (08/03/07). 02/06 MRI: L5/S1 DISC HERNIATION. Polycythemia vera. secondary to smoking. Right shoulder pain (07/22/15). Smoker. Smoker. Surgical History . History of intravascular stent placement. History of intravascular stent placement. Sigmoidoscopy (~10/1998). Stent placement PREVIOUS FUNCTIONAL STATUS/SOCIAL/FAMILY SUPPORTS:: Resides in [place], with , [place]. Reports supportive family. Independent at baseline. Has chronic pain closely managed by PCP. CURRENT FUNCTIONAL STATUS:: Mauricio was sitting up in his chair, preparing to leave for imaging. He was pleasant in greeting. ADVANCE DIRECTIVES:: Lorenza as agent. Has patient been provided with info about the portal/API?: No Did the patient sign up for the portal?: No CODE STATUS:: DNR/DNI INSURANCE COVERAGE / FINANCIAL ISSUES:: [facility] CURRENT HOME/COMMUNITY SERVICES/EQUIPMENT:: None, currently. PRIMARY CARE PHYSICIAN:: Aysha Odonnell DO. POTENTIAL DISCHARGE NEEDS:: Follow up appointments, CVA work-up to include MRI, Neuro. PATIENT/FAMILY EDUCATION NEEDS:: Review discharge instructions, discuss Ask Me Three. ANTICIPATED BARRIERS TO DISCHARGE:: None identified at this time. TRANSPORTATION:: Via private vehicle with family. PLAN:: Mauricio will discharge home when ready per MD. He will follow up with his PCP and plan of care as prescribed. CM to discuss increased home supports as reportedly Mauricio is primary caregiver for his . He will transport via private vehicle with family. CM continues to follow.
--- NOTE | 2021-05-07 17:20 | DSE_ITS ---
Date of service: 05/07/21 Time of Service: 17:21 DS: Diagnosis Discharge Diagnosis (1) Parkinsons disease: Status: Chronic (2) Weakness on right side of face: Status: Resolved (3) ASCVD (arteriosclerotic cardiovascular disease): Status: Chronic (4) Carotid stenosis: Status: Acute Asessment and Plan: 50 percent stenosis right proximal internal carotid artery. Mild, less than 50 percent, stenosis of proximal left internal carotid artery. (5) Essential hypertension: Status: Chronic (6) Secondary polycythemia: Status: Chronic (7) B12 deficiency: Status: Acute (8) COVID-19 ruled out by laboratory testing: Status: Ruled-out Discharge Plan Disposition Patient Disposition: HOME Condition: Stable Discharge Details Reason For Visit: Right Side Facial Weakness Admit Date/Time: 05/06/21 19:47 Admit Provider: Mauricio Veliz Attending Provider: Mauricio Veliz Primary Care Provider: Aysha Odonnell [facility] Course Hospital Course: Mr Azevedo is a 75 year old male with PMHx of CAD, HTN, hyperlipidemia, secondary polycythemia, who was a patient on [facility] hospitalist service from 05/06/21 until 05/07/21 having presented with to [facility] ED c/o R facial droop/weakness and drooling of unclear duration. 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 MRI of the brain was negative for acute CVA. His symptoms resolved. He was evaluated by neurology who felt that the patient's presentation was c/w Parkinson's disease. He was not interested in initiation of therapy but will follow up with Dr Juarez as outpatient. He was also found to be B12 deficient. Repletion was initiated. He will need to follow up with his PCP in 1-[address] Juarez. 45 minutes were spent on care for patient as well as preparation of his disch arge. Home Meds and New Rx's Prescriptions: New cyanocobalamin (vitamin B-12) 1,000 mcg capsule 1,000 mcg PO DAILY Qty: 30 RF: 0 Continued pravastatin 20 mg tablet 20 mg PO DAILY Qty: 90 RF: 4 nitroglycerin [Nitrostat] 0.4 mg tablet, sublingual 0.4 mg Sublingual PRN Qty: 25 RF: 3 metoprolol succinate 50 mg tablet extended release 24 hr 50 mg PO DAILY Qty: 90 RF: 4 meloxicam 15 mg tablet 15 mg PO DAILY PRN (Reason: pain (scale score 4-6)) Qty: 90 RF: 5 hydrochlorothiazide 12.5 mg tablet 12.5 mg PO QAM Qty: 90 RF: 4 hydrocodone-acetaminophen 5-325 mg tablet 2 tab PO TID MDD 6 PRN (Reason: pain) Qty: 42 RF: 0 aspirin [Ecotrin] 325 MG tablet,delayed release (DR/EC) 325 mg PO DAILY RF: 0 Discharge Instructions Instructions: Parkinson Disease (DC), Vitamin B12 Deficiency (ED) Additional Instructions: Return to the hospital with any fever, bleeding, chest pain, or shortness of breath. Follow up with your PCP in 1-[address] Juarez as scheduled. Stand Alone Forms: Nursing Discharge Form Referrals: Aysha Odonnell MD, [place] [Primary Care Provider] - (Please call office to make follow up appointment.) Betty Juarez MD [ [facility] STAFF PHYSICIAN] - (Please call to make follow up appointment.) Activity:: Activity as Tolerated Equipment/Supplies:: No Equipment Needed Diet:: As Tolerated Discharge Orders Discharge Orders: Discharge Order (Routine); Ordered 05/07/21 Ordered By: Tete Titus DS: Summary Time Spent with Patient providing and/or coordinating discharge services: Greater than 30 minutes Status at Discharge Functional status at discharge: independent ambulation Overall status at discharge: patient is back to baseline Mental Status: mental status grossly normal Speech and Movement: speech and movement normal Mood: congruent mood Affect: normal affect Exam Narrative Exam Narrative: General: Pleasant elderly male who is ABSENTEE-SHAWNEE, anxious to go home, resting tremor HEENT: EOMI, MMM, no facial droop or drooling at the time of my exam Heart: RRR, no m/r/g Lungs: CTAB Abdomen: soft, nontender, nondistended Extremities: no edema BLE's, 5/5 strength throughout Psych Mental Status: mental status grossly normal Speech and Movement: speech and movement normal Mood: congruent mood Affect: normal affect DS: Data Vitals/I&O Vitals and I&O: Vital Signs Temperature 36.5 C 05/07/21 11:30 Temperature Source Temporal Artery Scan 05/07/21 11:30 Pulse 73 05/07/21 16:28 Pulse Rhythm Regular 05/07/21 16:57 Pulse 66 05/06/21 21:01 Respiratory Rate 18 05/07/21 11:30 Respiratory Effort Non-Labored 05/07/21 16:57 Respiratory Depth Normal 05/07/21 16:57 Respiratory Pattern Normal 05/07/21 16:57 Blood Pressure 114/72 05/07/21 11:30 Blood Pressure Mean 82 05/06/21 21:00 Blood Pressure Position Sitting 05/06/21 16:03 Pulse Oximetry 98 05/07/21 11:30 Oxygen Delivery Method Room Air 05/07/21 11:30 Oxygen Flow Rate 0 05/07/21 11:30 Pain Level 0 05/07/21 11:30 Intake & Output 05/06/21 05/07/21 05/07/21 23:59 11:59 23:59 Intake Total 250 / 250 Output Total 550 / 775 225 / 775 Balance 250 / 250 -550 / -775 -225 / -775 Weight 73.028 kg Intake: Oral 250 / 250 Output: Urine 550 / 775 225 / 775 Other: Urine Color Straw Yellow Urine Appearance Clear Clear Urine Odor Normal Normal Comment Pt flushed before able to check and did not urinate into hat to measure Voiding Methods Toilet Data Completed and Pending Completed studies during hospitalization [Text1]: MRI brain: No evidence of acute infarct, hemorrhage or mass.. CT head w/w/o contrast: Ventricles and Extra axial spaces: Normal in size and morphology for the patient's age. Hemorrhage: None. Cerebral parenchyma: mild white matter changes of small vessel disease. Mild atrophy. Midline shift: None. Brainstem/Cerebellum: Normal. Calvarium: Normal. Visualized Paranasal sinuses/Mastoids: Clear. Soft Tissues: Unremarkable. Enhancement: Normal. CTA head/neck: 1. Normal CTA examination of the [place] of [place]. 2. Mild atrophy and white matter changes of small vessel disease. 3. Calcific plaque in the proximal internal carotid arteries. Approximate 50 percent stenosis right proximal internal carotid artery. Mild, less than 50 percent, stenosis of proximal left internal carotid artery. Labs on day of discharge: Labs from last 24 hours 05/07/21 05/07/21 05/07/21 06:10 06:10 06:10 WBC RBC Hgb Hct MCV MCH MCHC RDW Plt Count MPV Immature Gran % Neutrophils % Lymphocytes % Monocytes % Eosinophils % Basophils % Nucleated RBC % Absolute Neutrophils Absolute Lymphocytes Absolute Monocytes Absolute Eosinophils Absolute Basophils Sodium 139 Potassium 4.1 Chloride 102 Carbon Dioxide 28.7 Anion Gap 8.3 BUN 12 Creatinine 0.8 Estimated GFR/1.73 m2 >= 60.00 Glucose 95 Hemoglobin A1c 5.2 Calcium 9.3 Magnesium Total Bilirubin AST ALT Alkaline Phosphatase Troponin I Total Protein Albumin Triglycerides Total Cholesterol LDL Cholesterol, Calc HDL Cholesterol Vitamin B12 Folate TSH A.phagocytophil DNA PCR Pending B. divergens/MO-1 PCR Pending Babesia duncani (PCR) Pending Babesia microti DNA PCR Pending Borrelia (PCR) Pending Lyme Disease Antibody Pending COVID-19 Source SARS-CoV-2 (PCR) E.chaffeensis DNA (PCR) Pending E.ewingii/canis DNA PCR Pending E. muris-like DNA (PCR) Pending 05/07/21 05/06/21 05/06/21 06:10 17:06 16:40 WBC 9.61 RBC 4.64 Hgb 16.2 Hct 46.4 MCV 100.0 H MCH 34.9 H MCHC 34.9 RDW 12.5 Plt Count 191 MPV 8.8 Immature Gran % 0.6 Neutrophils % 78.6 Lymphocytes % 9.6 Monocytes % 9.8 Eosinophils % 1.1 Basophils % 0.3 Nucleated RBC % 0 Absolute Neutrophils 7.55 H Absolute Lymphocytes 0.92 L Absolute Monocytes 0.94 H Absolute Eosinophils 0.11 Absolute Basophils 0.03 Sodium Potassium Chloride Carbon Dioxide Anion Gap BUN Creatinine Estimated GFR/1.73 m2 Glucose Hemoglobin A1c Calcium Magnesium Total Bilirubin AST ALT Alkaline Phosphatase Troponin I Total Protein Albumin Triglycerides 52 Total Cholesterol 128 LDL Cholesterol, Calc 59 HDL Cholesterol 59 Vitamin B12 Folate TSH 2.41 A.phagocytophil DNA PCR B. divergens/MO-1 PCR Babesia duncani (PCR) Babesia microti DNA PCR Borrelia (PCR) Lyme Disease Antibody COVID-19 Source Nasal/Nares SARS-CoV-2 (PCR) Negative E.chaffeensis DNA (PCR) E.ewingii/canis DNA PCR E. muris-like DNA (PCR) 05/06/21 05/06/21 16:40 16:40 WBC RBC Hgb Hct MCV MCH MCHC RDW Plt Count MPV Immature Gran % Neutrophils % Lymphocytes % Monocytes % Eosinophils % Basophils % Nucleated RBC % Absolute Neutrophils Absolute Lymphocytes Absolute Monocytes Absolute Eosinophils Absolute Basophils Sodium 136 Potassium 4.0 Chloride 100 Carbon Dioxide 29.3 Anion Gap 6.7 BUN 14 Creatinine 0.8 Estimated GFR/1.73 m2 >= 60.00 Glucose 88 Hemoglobin A1c Calcium 9.5 Magnesium 2.1 Total Bilirubin 1.7 H AST 20 ALT 18 Alkaline Phosphatase 56 Troponin I < 0.05 Total Protein 7.2 Albumin 4.3 Triglycerides Total Cholesterol LDL Cholesterol, Calc HDL Cholesterol Vitamin B12 86 L Folate 15.0 TSH A.phagocytophil DNA PCR B. divergens/MO-1 PCR Babesia duncani (PCR) Babesia microti DNA PCR Borrelia (PCR) Lyme Disease Antibody COVID-19 Source SARS-CoV-2 (PCR) E.chaffeensis DNA (PCR) E.ewingii/canis DNA PCR E. muris-like DNA (PCR) [facility] Medical History Alcohol abuse 10/03/08 quit 2004 ASCVD (arteriosclerotic cardiovascular disease) Chronic pain disorder CONTRACT 01/19/16 06/06/17 CONTROLLED SUBSTANCE AGREEMENT~RENEWED Cyst of kidney, acquired RIGHT; stent placed approx. 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 Heart disease Brother Diabetes Heart disease Grandfather No problems noted. Grandfather No problems noted. Grandmother No problems noted. Grandmother No problems noted. Sister No problems noted. Sister No problems noted. Sister No problems noted. Brother Neoplasm Brother Stroke Son No problems noted. Daughter No problems noted. Daughter No problems noted. Social History Smoking/Tobacco Use Status: Former Tobacco Use Quit Date: 09/05/06 Second Hand Exposure: Yes Smoking risk assessment performed?: Yes Alcohol Intake: former Drug use: Never Substance use type: does not use Caregiver/Support person: No Household members: spouse Housing: house Communication Needs: None Do you need help understanding health information?: Rarely Pets and animals: Yes Pets and animals: cat(s) and dog(s) Sexually active: Yes Do you think of yourself as: straight/heterosexual Current gender identity: male What is your relationship status?: How often do you talk on the phone with friends or family?: twice per week How often do you get together with friends or relatives?: once per week How often do you attend methodist or catholic services?: decline to answer Do you belong to any clubs or organized social groups?: no Panel score (0-1 are the most socially isolated patients): 2 What type of physical activity do you participate in: running Duration: 45-60 minutes/day Frequency: 1-2 times per week Rubia/Episcopal: Orthodox Special rubia needs: No Seatbelt use: sometimes Drive intox or ride w/intox auto 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
[2021-05-09 21:05] LABS: Anaplasma phagocytophilum Negative (Negative); B. miyamotoi PCR Negative (Negative); Babesia divergens/MO-1 Negative (Negative); Babesia duncani Negative (Negative); Babesia microti Negative (Negative); Ehrlichia chaffeensis Negative (Negative); Ehrlichia ewingii/canis Negative (Negative); Ehrlichia muris eauclairensis Negative (Negative)
[2021-05-12 10:44] LABS: Lyme Ab w Rflx to Lyme Confirm Negative (Negative)
== END 2021-05-07 18:25 | disposition home or self-care (01) | DRG 57 ==
LOC: ER 21:00 → MS 21:33
PROVIDERS: Admitting Provider Family Medicine; Emergency Provider Student in an Organized Health Care Education/Training Program; PCP Family Medicine; Visit Provider Family Medicine
DX: G20 Parkinson's disease (principal); R29.810 Facial weakness; I25.10 Atherosclerotic heart disease of native coronary artery without angina pectoris; D53.8 Other specified nutritional anemias; I67.9 Cerebrovascular disease, unspecified; E78.5 Hyperlipidemia, unspecified; I10 Essential (primary) hypertension; Z95.5 Presence of coronary angioplasty implant and graft; N40.0 Benign prostatic hyperplasia without lower urinary tract symptoms; G89.29 Other chronic pain; F10.21 Alcohol dependence, in remission; Z87.891 Personal history of nicotine dependence; R47.1 Dysarthria and anarthria; Z20.822 Contact with and (suspected) exposure to COVID-19; I65.23 Occlusion and stenosis of bilateral carotid arteries; D75.1 Secondary polycythemia
CPT/HCPCS: 36415; 36416; 70496; 70498; 80048; 80053; 80061; 82962; 87635; 87798; 93005; 99223; 99285; 70551; 82607; 82746; 83036; 83735; 84443; 84484; 85025; 86618; 93010; 99239; J1644; J3420; J3490

== ENCOUNTER → 2021-05-07 07:36 | Outpatient (BNVA) | payer OTHER, SELFPAY | PROVIDERS: PCP Family Medicine; Referring Provider Family Medicine; Visit Provider Psychiatry & Neurology Neurology | DX: R69 Illness, unspecified (principal) ==

== ENCOUNTER → 2021-05-19 13:28 | Outpatient (BNVA) | payer OTHER, SELFPAY | PROVIDERS: PCP Family Medicine; Referring Provider Family Medicine; Visit Provider Psychiatry & Neurology Neurology | DX: G20 Parkinson's disease (principal); R41.3 Other amnesia; E53.8 Deficiency of other specified B group vitamins; I65.29 Occlusion and stenosis of unspecified carotid artery; R26.89 Other abnormalities of gait and mobility | CPT/HCPCS: 99215 ==

== ENCOUNTER 2021-07-15 11:34 | Outpatient (REF) | payer MEDICARE, SELFPAY ==
--- NOTE | 2021-07-15 09:10 | TONG_PTH ---
PATIENT: Mauricio Bernal LOC: [facility] U#:[id number] AGE/SX: 76/M ROOM: RE07/15/[address]: Trino Dave MD : 1945 BED: DIS: 07/15/2021 SPEC #: [id number] RECD: 07/15/21 18:22 STATUS: ISABEL REGasper #: [id number] ALEENA: 07/15/21 09:[address]: Trino Dave DEPT: Surgical Specimen RECD BY: Shirley Bonilla ENTERED: 07/15/21 18:22 SP TYPE: AVINASH VELAZQUEZ DR: Aysha Odonnell MD, [place] Tissues: 1 - TONGUE BIOPSY Procedures: GROSS AND MICRO LEVEL 4 Comments: [id number]
== END 2021-07-15 11:35 | disposition home or self-care (01) ==
LOC: LBN 11:34
PROVIDERS: PCP Family Medicine; Visit Provider Otolaryngology
DX: C02.9 Malignant neoplasm of tongue, unspecified (principal)
CPT/HCPCS: 88305

== ENCOUNTER → 2021-08-04 08:02 | Outpatient (BNVA) | payer MEDICARE, SELFPAY | PROVIDERS: PCP Family Medicine; Referring Provider Family Medicine; Visit Provider Psychiatry & Neurology Neurology | DX: G20 Parkinson's disease (principal); R41.3 Other amnesia; E53.8 Deficiency of other specified B group vitamins; I65.29 Occlusion and stenosis of unspecified carotid artery; R26.89 Other abnormalities of gait and mobility; R35.0 Frequency of micturition | CPT/HCPCS: 99214 ==

== ENCOUNTER → 2021-08-05 00:34 | Outpatient (CLI) | payer MEDICARE, SELFPAY ==
--- NOTE | 2021-08-05 14:00 | DI.CT_ITS ---
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 TECHNIQUE: Imaging Protocol: Axial computed tomography images with coronal and sagittal reformatted images were created and reviewed. CONTRAST MATERIAL: Intravenous: Omnipaque 350 Contrast volume:100 mL COMPARISON: CT CT BRAIN NECK CTA from 05/06/2021 FINDINGS: Orbits and orbital soft tissues: Within normal limits. Visualized paranasal sinuses: There is opacification of a few ethmoid air cells. The remaining visu alized paranasal sinuses are clear. No fluid levels are present. The mastoid air cells are clear. Cerumen is seen in the external auditory canals. Nasopharynx: Within normal limits. Oropharynx: There is appear to be mild asymmetry in size of the left aspect of the tongue compared to the right. No gross ulceration is seen. The tongue otherwise appears symmetric. There is no evide nce of infiltration of the adjacent musculature or bones. Hypopharynx: Within normal limits. Larynx: Within normal limits. Retropharyngeal space: Within normal limits. Parotids/submandibular: Within normal limits. Thyroid gland: Within normal limits. Lymphadenopathy: There is scattered lymph nodes seen along the level one to level three all measurin g less than 8 mm in short axis diameter which are physiologic in nature. There is a 0.9 x 0.5 cm subm ental lymph node. The next largest lymph node is seen adjacent to the left submandibular gland and m easures 0.9 x 0.4 cm. Trachea: Within normal limits. Lung apices: Moderate centrilobular emphysematous changes are seen in the lung apices. No pulmonary nodules are seen in the visualized lung stephens. Bones: Within normal limits given the patient's age. Carotids/Jugular: Atherosclerosis. Soft tissues: Within normal limits. IMPRESSION: 1. No significant cervical adenopathy. No evidence of osseous destruction or invasion of the submand ibular glands, nasopharynx or hypopharynx. 2. Moderate centrilobular emphysema. 3. Degenerative changes in the spine. RADIATION DOSE DELIVERED: 433.73mGy.cm Total DLP 433.73mGy.cm Total DLP DATA REPOSITORY: All CT scans at this facility are submitted to the National Radiology Data Registry (NRDR) Dose Index Registry (DIR) with the [employer] (ACR). RADIATION OPTIMIZATION: All CT scans at this facility use at least one of these dose optimization te chniques: automated exposure control; mA and/or kV adjustment per patient size (includes targeted exa ms where dose is matched to clinical indication); or iterative reconstruction.
== END ==
PROVIDERS: PCP Family Medicine; Visit Provider Otolaryngology
DX: C02.9 Malignant neoplasm of tongue, unspecified (principal); J43.2 Centrilobular emphysema
CPT/HCPCS: 70491; 82565

== ENCOUNTER 2021-09-01 08:29 | Outpatient (CLI) | payer MEDICARE, SELFPAY | END 2021-09-01 08:30 | disposition home or self-care (01) | LOC: DI.CM 08:30 | PROVIDERS: PCP Family Medicine; Visit Provider Family Medicine | DX: R69 Illness, unspecified (principal) ==

== ENCOUNTER → 2021-09-17 01:37 | Outpatient (CLI) | payer MEDICARE, SELFPAY ==
--- NOTE | 2021-09-17 06:45 | DI.NM_ITS ---
APPROVED REPORT Exam: Pharmacologic paired w/ exercise Patient Location: Out-Patient Room/Bed: Stress Nurse: Wilma Flores RN Ordering Provider:MARCIO GOODWIN, Contact Number: [phone] BMI: 20.94 Baseline Rhythm: Sinus Rhythm Comment: frequent PACs Indications: PRE-OP, ASCVD Medical History Medical History: ASCVD, HTN, HLD, Memory loss, Carotid stenosis, Parkinson's, CVA, Chronic pain, Toba cco & president abuse Cardiac Medications: Pravastatin, Nitroglycerin, Hydrochlorothiazide, Aspirin, Allergies: Acetaminophen, Lorazepam, Oxycodone Cardiac Risk Factors: HTN, Hyperlipidemia, FHX of CAD, Smoking (current), CVD Previous Cardiac Procedures: PCI w/ stent placement (14 years ago) Pretest Chest Pain Characteristics: No chest pain Exercise History: Sedentary Physical Disabilities: None Lung Sounds: Clear to auscultation Heart Sounds: Regular Stress Test Details Test: Exercise stress converted to pharmacologic stress due to failure to obtain a diagnostic stress test. Reason for pharmacologic stress test: physical limitation. Nuclear Acquisition: Rest Tc-99m/Stress Tc-99m 1 day Rest Isotope: Tc-99m Sestamibi. Dose: 11.0 Date: 09/17/2021 Injection Time: 0810 Stress Isotope: Tc-99m Sestamibi. Dose: 34.0 Date: 09/17/2021 Injection Time: 1025 HR Resting HR Supine: 76 bpm Max Heart Rate (APMHR): 146.399361 bpm Resting HR Standin bpm Target HR (85% APMHR): 124.880397 bpm Max HR Achieved: 121 bpm % of APMHR: 82.88 Recovery HR: 94 bpm Comment: patient has metoprolol succinate on medication list; patient reports he has not been taking this. BP Resting BP Supine: 124/64 mmHg Resting BP Standin/62 mmHg Max BP: 138/72 mmHg Recovery BP: 126/70 mmHg ECG Resting ECG: Sinus Rhythm Ectopy: frequent PAs Stress ECG: Sinus Tachycardia ST Change: No significant ST segment changes noted Arrhythmia: frequent PACs Comment: significant artifact while exercising Recovery ECG: Sinus Rhythm Recovery ST Change: No significant ST segment changes noted Recovery Arrhythmia: rare PVC, frequent PACs, 3 run burst PSVT Clinical Reason for Termination: Fatigue Stress Symptoms: Leg Fatigue, Headache, Lightheadedness Exercise duration: 3 min23 sec Highest Stage Reached: Stage 2: 2.5 mph at 12% grade. Exercise capacity: 5.17 METs Rate Pressure Product: [id number] Stress ECG Conclusion 1. The patient exercised for 3 minutes and 23 seconds (5 minutes). Patient no symptoms suggestive of ischemia. 2. The patient had both PVCs and PACs but no significant arrhythmias. 3. There is no evidence of ischemia on the ECG portion of the exam. Stress Test Summary STAGE Time (mins) Speed (mph) Grade (%) HR BP SYMPTOMS METS Supine 76 124/64 Standing 62 122/62 1 3 1.7 10 113 134/80 4.6 1 min post Lexiscan injection 113 130/84 moderate lightheadedness 3 min post Lexiscan injection 101 138/72 lightheadedness resolved, c/o WILLIAMSON 6 min post Lexiscan injection 94 136/70 9 min post Lexiscan injection 92 132/72 12 min post Lexiscan injection 94 126/70 MPI Conclusion The ejection fraction was 63% with stress. There were no wall motion on rest. There was no evidence of ischemia in the imaging portion of the exam. This represents a normal SPECT stress test. Radiologist Interpretation Radiologist agrees with Psychologist's Interpretation. Radiologist Interpretation by: Brianna Patrick MD Interpretation Date/Time: 09/17/2021 15:34:03
--- NOTE | 2021-09-17 06:53 | DI.CTLCSR_ITS ---
Exam(s) CT CHEST LUNG CANCER SCREEN EXAM: CT CHEST LUNG CANCER SCREEN CLINICAL HISTORY: Screening for lung cancer,current smoker, f17.210 TECHNIQUE: Imaging Protocol: Axial computed tomography images with coronal and sagittal reformatted images were created and reviewed COMPARISON: CR RIGHT SHOULDER COMPLETE from 07/22/2015 FINDINGS: Tracheobronchial tree: Patent where visualized. Mediastinum and Aura: No dominant adenopathy or fluid collection. Pulmonary parenchyma: No consolidation or dominant measurable mass. Ymig-yc-cltoorfo centrilobular e mphysema. Lung Nodules: None. Pleura: No effusion or pneumothorax. Heart: The heart is not dilated. Severe coronary artery calcifications are seen. Aorta: Thoracic aorta non-dilated.Heavily calcified. Upper abdomen: Unremarkable. Bones: No compression fractures. Degenerative disc changes with prominent endplate osteophytes. Soft Tissues: Unremarkable. IMPRESSION: Asoa-kv-jexxfvqd centrilobular emphysema. No nodules or infiltrates. Lung RADS Cat 1 - Negative: No nodules and definitely benign nodules Lung-RADS 1.0 CATEGORIES: Category 0 - Prior chest CT exam(s) being located for comparison. Category 1 - Annual screening in 12 months. No nodules or definitely benign nodules. Category 2 - Annual screening in 12 months. Benign appearance. Nodules with low likelihood of becomin g active cancer. Category 3 - 6-month follow-up. Probably benign. Short-term follow-up suggested. Nodules with low lik elihood of becoming active cancer. Category 4A - 3-month follow-up and CT/PET if >8 mm in size. Suspicious finding. Findings which requi re additional testing. Category 4B - Findings which require additional testing and tissue sampling. Category 4X - Category 3 or 4 nodules with additional features or imaging findings that increases the suspicion of malignancy. Modifier S- Potentially clinically significant findings (non lung cancer) RADIATION DOSE DELIVERED: 95.04mGy.cm Total DLP 1.84mGy CTDIvol DATA REPOSITORY: All CT scans at this facility are submitted to the National Radiology Data Registry (NRDR) Dose Index Registry (DIR) with the [employer] (ACR). RADIATION OPTIMIZATION: All CT scans at this facility use at least one of these dose optimization te chniques: automated exposure control; mA and/or kV adjustment per patient size (includes targeted exa ms where dose is matched to clinical indication); or iterative reconstruction.
[2021-09-17 08:29] LABS: HGB 14.5 g/dL (13.5-17.5); MCH 30.1 pg (27.0-33.0); MCHC 34.5 % (32.0-36.0); MCV 87.1 fL (80-95); MPV 9.9 fL (8.0-11.0); Platelet Count 263 10^3/uL (130-400); RBC 4.82 10^6/uL (4.36-5.78); RDW-SD 38.5 fL; WBC 6.97 10^3/uL (4.4-10.8)
[2021-09-17 09:11] LABS: ALT 29 U/L (16-63); AST 24 U/L (15-37); Albumin 4.3 g/dL (3.4-5.0); Alkaline Phosphatase 64 U/L (46-116); Anion Gap 8.2 mmol/L (3-11); BUN 9 mg/dL (7-18); Bilirubin, Total 0.6 mg/dL (0.2-1.0); CO2 29.8 mmol/L (21.0-32.0); CREATININE 0.8 mg/dL (0.70-1.30); Calcium 9.7 mg/dL (8.5-10.1); Calculated LDL 71 mg/dL (<100); Chloride 98 mmol/L (98-107); Cholesterol 146 mg/dL (<200); Glucose 108 mg/dL (74-106); HDL Cholesterol 56 mg/dL (40-60); Sodium 136 mmol/L (136-145); TSH (W/Ref FT4) 1.46 uIU/mL (0.36-3.74); Triglyceride 98 mg/dL (<150)
[2021-09-17] MEDS: Regadenoson 0.4 MG/5 ML SYR IVP (10:54)
== END ==
PROVIDERS: PCP Family Medicine; Visit Provider Family Medicine
DX: I25.10 Atherosclerotic heart disease of native coronary artery without angina pectoris (principal); J43.2 Centrilobular emphysema; C02.9 Malignant neoplasm of tongue, unspecified; E78.5 Hyperlipidemia, unspecified; G89.4 Chronic pain syndrome; I10 Essential (primary) hypertension; Z12.2 Encounter for screening for malignant neoplasm of respiratory organs; F17.210 Nicotine dependence, cigarettes, uncomplicated; I49.1 Atrial premature depolarization; Z01.818 Encounter for other preprocedural examination; I49.3 Ventricular premature depolarization; Z82.49 Family history of ischemic heart disease and other diseases of the circulatory system
CPT/HCPCS: 71271; 78452; 80053; 80061; 85027; 93016; 93018; 84443; 93017; J2785

== ENCOUNTER 2021-09-17 04:11 | Outpatient (CLI) | payer MEDICARE, SELFPAY | END 2021-09-17 04:12 | disposition home or self-care (01) | LOC: LBO 04:11 | PROVIDERS: PCP Family Medicine; Visit Provider Family Medicine ==

== ENCOUNTER → 2021-09-18 02:43 | Outpatient (CLI) | payer MEDICARE, SELFPAY | PROVIDERS: PCP Family Medicine; Visit Provider Family Medicine ==

== ENCOUNTER → 2021-09-21 00:51 | Outpatient (CLI) | payer MEDICARE, SELFPAY ==
[2021-09-21] MEDS: Normal Saline Flush 10 ML SYR IVP (10:23)
[2021-09-21] MEDS: Gadoterate meglumine 20 ML VIAL 13 ML IVP (10:23)
--- NOTE | 2021-09-21 10:45 | DI.MRI_ITS ---
Exam(s) MR ORBIT FACIAL NECK WO/W EXAM: MR ORBIT FACIAL NECK WO/W CLINICAL HISTORY: TONGUE CANCER C02.9 TECHNIQUE: Multiplanar multisequence MRI was performed. CONTRAST MATERIAL: IV Contrast: 13 mL of Magnevist contrast administered. COMPARISON: CT CT NECK W from 08/05/2021 FINDINGS: ORBITS: The anterior and posterior chambers of the globes are intact. The retrobulbar fat is unremark able. Extraocular muscles are unremarkable. Visualized portions of the brain: Atrophy consistent with the patient's age otherwise unremarkable. Parotids/submandibular/thyroid gland: Normal. Lymphadenopathy: There are scattered lymph nodes seen along the level one to level three all measuri ng less than 8 mm in short axis diameter which are physiologic in nature. Soft tissues: The evaluation is mildly limited by motion. There is asymmetry of the tongue with the left size slightly prominent appear to the right. No focal enhancing mass or fluid collection is vis ible. The epiglottis and vocal cords are within normal limits. Images through both lung apices are u nremarkable. IMPRESSION: Asymmetry of the tongue with the left side more prominent than the right. No discrete mass or fluid collection. No adenopathy in the neck. DATA REPOSITORY:
== END ==
PROVIDERS: PCP Family Medicine; Visit Provider Otolaryngology
DX: C02.9 Malignant neoplasm of tongue, unspecified (principal)
CPT/HCPCS: 70543

== ENCOUNTER → 2022-02-02 08:13 | Outpatient (BNVA) | payer MEDICARE, SELFPAY | PROVIDERS: PCP Family Medicine; Referring Provider Family Medicine; Visit Provider Psychiatry & Neurology Neurology | DX: G20 Parkinson's disease (principal); U07.1 COVID-19; R41.3 Other amnesia; I65.29 Occlusion and stenosis of unspecified carotid artery; E53.8 Deficiency of other specified B group vitamins; R26.89 Other abnormalities of gait and mobility | CPT/HCPCS: 99214 ==

== ENCOUNTER 2022-02-05 01:12 | Outpatient (CLI) | payer MEDICARE, SELFPAY ==
[2022-02-05 13:37] LABS: Vitamin B12 749 pg/mL (193-986)
== END 2022-02-05 01:13 | disposition home or self-care (01) ==
LOC: LOS 01:12
PROVIDERS: PCP Family Medicine; Visit Provider Psychiatry & Neurology Neurology
DX: E53.8 Deficiency of other specified B group vitamins (principal)
CPT/HCPCS: 36415; 82607

== ENCOUNTER → 2022-06-09 08:06 | Outpatient (BNVA) | payer MEDICARE, SELFPAY | PROVIDERS: PCP Family Medicine; Referring Provider Family Medicine; Visit Provider Psychiatry & Neurology Neurology | DX: G20 Parkinson's disease (principal); R41.3 Other amnesia; I67.9 Cerebrovascular disease, unspecified; E53.8 Deficiency of other specified B group vitamins; I65.29 Occlusion and stenosis of unspecified carotid artery; R35.0 Frequency of micturition; I10 Essential (primary) hypertension; E78.5 Hyperlipidemia, unspecified | CPT/HCPCS: 99215 ==

== ENCOUNTER 2022-06-10 02:05 | Outpatient (CLI) | payer MEDICARE, SELFPAY ==
--- NOTE | 2022-06-10 07:30 | DI.US_ITS ---
Exam(s) US CAROTID EXAM: US CAROTID CLINICAL HISTORY: R>L ICA stenosis,cva,i63.9 TECHNIQUE: Ultrasound performed using standard protocol. COMPARISON: No exams were available for comparison FINDINGS: Bilateral duplex evaluation of the carotid circulation was performed according to the usual protocol with 2D and Doppler evaluation. There is mild scattered visible atheromatous plaque throughout the c ommon and internal carotid arteries bilaterally. No flow velocity elevation seen on the right or lef t. There is bilateral antegrade vertebral flow. IMPRESSION: No evidence of a hemodynamically significant carotid stenosis. DATA REPOSITORY:
== END 2022-06-10 02:25 ==
LOC: DI 02:05
PROVIDERS: PCP Family Medicine; Visit Provider Psychiatry & Neurology Neurology
DX: I63.9 Cerebral infarction, unspecified (principal)
CPT/HCPCS: 93880

== ENCOUNTER 2022-08-11 09:20 | Outpatient (REF) | payer MEDICARE, SELFPAY ==
--- NOTE | 2022-08-11 09:12 | PAPNONF_PTH ---
PATIENT: Mauricio Bernal LOC: [facility] U#:[id number] AGE/SX: 77/M ROOM: RE08/11/[address]: Trino Dave MD : 1945 BED: DIS: 08/11/2022 SPEC #: [id number] RECD: 08/12/22 12:51 STATUS: ISABEL REGasper #: [id number] ALEENA: 08/11/22 09:[address]: Trino Dave DEPT: [facility] Cytology RECD BY: Shirley Bonilla ENTERED: 08/12/22 12:53 SP TYPE: DEIDRA VELAZQUEZ DR: Aysha Odonnell MD, DC Tissues: 1 - BODY FLUID CYTO(NOT S/U/N/EM)[facility] Procedures: BODY FLUID CYTO(NOT SPU/UR/NIP/ENDOM)[facility] Comments: [id number] (REFRIGERATED)
== END 2022-08-11 09:21 | disposition home or self-care (01) ==
LOC: LBN 09:20
PROVIDERS: PCP Family Medicine; Visit Provider Otolaryngology
DX: C79.89 Secondary malignant neoplasm of other specified sites (principal)
CPT/HCPCS: 88104

== ENCOUNTER 2022-11-05 13:14 | Outpatient (CLI) | payer MEDICARE, SELFPAY ==
[2022-11-05 08:21] LABS: CREATININE 0.9 mg/dL (0.70-1.30); Estimated GFR 89.07 (mL/min/1.73m2)
== END 2022-11-05 13:15 | disposition home or self-care (01) ==
LOC: LBO 13:15
PROVIDERS: PCP Family Medicine; Visit Provider Preventive Medicine Undersea and Hyperbaric Medicine
DX: C06.9 Malignant neoplasm of mouth, unspecified (principal)
CPT/HCPCS: 36415; 82565

== ENCOUNTER 2022-11-23 01:42 | Outpatient (CLI) | payer MEDICARE, SELFPAY ==
--- NOTE | 2022-11-23 10:30 | DI.RAD_ITS ---
Exam(s) RF MODIFIED SPEECH BA SWALLOW TECHNIQUE: Modified barium swallow was performed in conjunction with speech pathology. CONTRAST MATERIAL: Oral barium contrast was administered. COMPARISON: No exams were available for comparison FINDINGS: Note that this is not a dedicated esophagram, distal esophagus not evaluated. There are postsurgical changes seen in the neck. There is no evidence of aspiration of thick or thin liquids, barium pudding, or barium coated cookies . Penetration was seen with thin barium during the examination. Speech pathology report to follow. IMPRESSION: No evidence of aspiration. Please refer to the speech pathology report for complete details. RADIATION DOSE DELIVERED: farrah Coley=13.3 mGy
[2022-11-23] MEDS: Barium Sulfate 700 MG TAB PO (10:57)
[2022-11-23] MEDS: Barium Sulfate Oral Paste 40% W/V 230 ML TUBE PO (10:58)
[2022-11-23] MEDS: Barium Sulfate 81% w/w for Oral Suspension 148 GM BTL PO (10:59)
[2022-11-23] MEDS: Barium Sulfate 40% W/V 240 ML BTL PO (11:00)
--- NOTE | 2022-11-23 11:11 | ST.MBS_ITS ---
Date of Service Date of service: 11/23/22 Time of Service: 10:30 Modified Barium Swallow Study Findings: Video fluoroscopic Swallowing Evaluation (VFSE) / Modified Barium Swallow Study (MBSS) Speech Language Pathology Report Patient referred for VFSE/MBSS from Dr. Cronin ([facility] [place] Rad Onc) given prior L tongue reconstruction and now recurrent disease starting Radiation therapy im minently. IMPRESSIONS: Swallow safety is mildly impaired; swallow efficiency is impaired. Mild oropharyngeal dysphagia. Characterized primarily by altered anatomy at vallecula and reduced L tongue bulk/strength and reduced hyo-laryngeal motility and tongue base retraction, as well as mild delayed pharyngeal swallow resulting in penetration to the vocal folds during the swallow, requiring cue to clear. No aspiration was observed though risk of micro-aspiration of laryngeal residue is evident. 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 Patient appears to be at low-moderate risk for potential aspiration PNA and/or pulmonary compromise and moderate risk for malnutrition, moderate risk for dehydration especially in context of upcoming radiotherapy. Diet modification is not indicated; non-oral nutrition is not necessarily indicated at this time. May benefit from mildly thickened liquids only if his tolerance of thin liquids decreases during treatment appearing to be due to s/sx aspiration or reduced pulmonary status. Swallow prognosis is guarded given: Positive prognostic factors: Time since onset, Family/caregiver support, Cognitive status, Negative prognostic factors: Age, Severity, Surgical/anatomical factors, Possible impacts of radiation therapy on swallow function and pending patient/caregiver training in risk management as outlined, including use of trialed compensatory strategies. Patient appears to be a good candidate for behavioral swallow rehabilitation. RECOMMENDATIONS: Diet Texture Recommendation:? IDDSI LEVEL SOLIDS 7-Regular Solids or as tolerated LIQUIDS 0-Thin Liquids Please see further details at?www.iddsi.org http://www.iddsi.org/ MEDICATIONS Whole or Crushed, as able with 4-Puree Diet texture modification is per patient's preference; please adjust diet textures at patient's discretion & collaboration with care team. Do not alter medications (e.g., cut)? without advice from your MD or pharmacist. Risk Management Strategies:? Behavioral reflux precautions, including upright position during + 90 mins after meals. Small bites, approx [id number] Small sips, approx 10 mL Alternate solids/liquids as able Multiple swallows per bolus to encourage clearance of pharyngeal stasis/residue Control risk factors for aspiration pneumonia via (a) thorough oral hygiene & (b) maintaining physical mobility as tolerated PLAN: Therapy: Recommend subsequent outpatient session with FORM GRADER to review results of today's exam and develop treatment plan as appropriate. May consider the following: Targeted Oropharyngeal Exercise per treating FORM GRADER including further prophylactic pharyngocize, Further Training/Education in Risk Management Further Counseling re: Options for maintaining quality of life in context of dysphagia presentation Follow-up exam: Recommend repeat VFSE/MBSS upon completion of radiotherapy once acute pain has subsided. ----- OBJECTIVE Videofluoroscopic Swallow Evaluation (VFSE/MBSS) was conducted in the lateral and [id number] projection by Speech-Language Pathologist, in collaboration with Radiologist, to evaluate oropharyngeal swallow function. Anatomic view under fluoroscopy: altered anatomy of epiglottis, reduced size/bulk of L tongue from a/p view. PO Barium Contrast Trials Oral barium water-soluble contrast was administered as follows: IDDSI Level 0 Varibar thin liquid (40% w/v) IDDSI Level 2 Varibar nectar thick/mildly thick liquid (40% w/v) IDDSI Level 4 Varibar pudding/pureed/extremely thick (40% w/v) IDDSI Level 7 Regular Solid: 1/2 hakeem cracker coated in 3 mL Varibar pudding 13 mm barium tablet taken with Thin Liquids. MBSImP Component Scores: COMPONENT Scale SCORE 1 Lip closure (0-4) 1 Resulted in interlabial escape, without progression to anterior lip 2 Hold Position (0-3) 1 Allowed bolus escape to lateral buccal cavity/floor of mouth 3 Bolus Preparation (0-4) 1 Resulted in slow prolonged chewing/mashing with complete re-collection 4 Bolus Transport (0-4) 2 Was with slowed tongue motion 5 Oral Residue (0-4) 2 Was a collection on oral structures 6 Swallow Initiation (0-4) 3 Occurred when the bolus head was in the pyriform sinuses 7 Soft Palate Elevation (0-4) 1 Allowed a trace column of contrast or air between soft palate and pharyngeal wall 8 Laryngeal Elevation (0-3) 1 Was decreased with partial superior movement of thyroid cartilage/partial approximation of arytenoids to epiglottic petiole 9 Anterior Hyoid Motion (0-2) 1 Demonstrated partial anterior movement 10 Epiglottic Movement (0-2) 1 Resulted in partial inversion 11 Laryngeal ClosureA (0-2) 1 Was incomplete with narrow a column of air/contrast in laryngeal vestibule 12 Pharyngeal Stripping Wave (0-2) 1 Was present, but diminished 13 Pharyngeal Contraction (0-3) 2 Resulted in unilateral Bulging 14 PES Opening (0-3) 1 Demonstrated partial distension/partial duration, with partial obstruction of flow 15 Tongue Base Retraction (0-4) 2 Allowed a narrow column of contrast or air between the retracted tongue base and the posterior pharyngeal wall 16 Pharyngeal Residue (0-4) 2 Was a collection of residue within or on pharyngeal structures 17 Esophageal Clearance (0-4) 0 Was complete, with only a coating of contrast, if any Results: COMPONENT Scale SCORE 1 Oral Score (0-18) 9 2 Pharyngeal Score (0-29) 13 3 Esophageal Score (0-4) 0 Penetration-Aspiration Scale: COMPONENT Scale SCORE 1 Thin liquid (1-8) 5 Contrast entered the airway, contacted the vocal folds, and was not ejected from the airway. 2 [place] thick (1-8) 1 Contrast did not enter the airway 3 Honey thick (1-8) NA 4 Pudding thick (1-8) 1 Contrast did not enter the airway 5 Cookie (1-8) 1 Contrast did not enter the airway Functional Oral Intake Scale: COMPONENT Scale SCORE 1 Pre-Study (1-7) 6 Total oral intake with no special preparation, but must avoid specific foods or liquid items 2 Post-Study (1-7) NA DIGEST: COMPONENT Scale SCORE 1 Thin Max PAS (1-8) 7 Contrast entered the airway, passed below the vocal folds, and was not ejected from the trachea despite effort. 2 [place] Max PAS (1-8) 1 Contrast did not enter the airway 3 Honey Max PAS (1-8) NA 4 Liquid Max PAS (1-8) 7 Maximum PAS Score over all liquid trials 5 Liquid Max Residue (0-3) 0 below 10% 6 Pudding Max PAS (1-8) 1 Contrast did not enter the airway 7 Pudding Max Residue (0-3) 1 10 - 49% 8 Cracker Max PAS (1-8) 1 Contrast did not enter the airway 9 Cracker Max Residue (0-3) 0 below 10% 10 Frequency if PAS >= 3 (0-3) 0 Single event 11C Amount if PAS >= 5 (0-1) 0 Not gross Results: COMPONENT Scale SCORE 1 SAFETY GRADE (0-4) 1 Safety grade for swallowing based on patterns of aspiration or laryngeal penetration 2 EFFICIENCY GRADE (0-4) 1 Efficiency grade of swallowing based on patterns of pharyngeal residue 3 DIGEST (0-4) 1 Severity grade of pharyngeal dysphagia: 0 - Normal, 1 - Mild, 2 - Moderate, 3 - Severe, 4 - Life threatening 4 Max Exam PAS (1-8) 7 Maximum PAS Score over all bolus trials 5 Max Exam Residue (0-3) 1 Maximum Exam Residue over all bolus trials Observations not captured in quantitative data: Trialed Compensatory Strategies & Outcome: Maneuvers Successful (+) Unsuccessful (-) Postures Successful (+) Unsuccessful (-) 3 second Preparatory Set? ? +/- Chin Tuck Posture? ? Cough? ? Posterior Head tilt? Reflexive? Cued? Throat Clear? ? Head Tilt to? Reflexive? Left? Cued? ? + ? Right? ? Saliva swallow? ? + Head Turn/Rotate to? ? Supraglottic Swallow? Left? ? - (did not prevent or clear residue) Super-supraglottic Swallow? Right? ? Bolus Modifications Successful (+) Unsuccessful (-) Delivery/Alternating Consistencies ? Follow with Liquid Wash + ? Follow with Solid Bolus? Delivery/Via Straw? ? Reduced Volume? ? +/- Reduced Rate of Intake? ? Increased Viscosity? ? + Other:?? ? Thank you for allowing us to take part in this patient's care. Please feel free to contact the [facility] Speech Language Pathology Department with any questions/concerns. Coding CPT Codes MOTION FLUOROSCOPY/SWALLOW - [id number] ([id number])
== END 2022-11-23 02:02 ==
LOC: DI 01:42
PROVIDERS: PCP Family Medicine; Visit Provider Preventive Medicine Undersea and Hyperbaric Medicine
DX: R13.12 Dysphagia, oropharyngeal phase (principal); Z85.810 Personal history of malignant neoplasm of tongue; C06.9 Malignant neoplasm of mouth, unspecified
CPT/HCPCS: 74221

== ENCOUNTER → 2023-01-26 14:49 | Outpatient (BNVA) | payer MEDICARE, SELFPAY | PROVIDERS: PCP Family Medicine; Visit Provider Psychiatry & Neurology Neurology | DX: R41.3 Other amnesia (principal); E53.8 Deficiency of other specified B group vitamins; I65.22 Occlusion and stenosis of left carotid artery; G20 Parkinson's disease; R26.89 Other abnormalities of gait and mobility | CPT/HCPCS: 99214 ==

== ENCOUNTER 2023-04-19 03:25 | Outpatient (CLI) | payer MEDICARE, SELFPAY ==
[2023-04-19 08:13] LABS: CREATININE 0.9 mg/dL (0.70-1.30); Estimated GFR 89.07 (mL/min/1.73m2)
== END 2023-04-19 03:26 | disposition home or self-care (01) ==
LOC: LBO 03:25
PROVIDERS: PCP Family Medicine; Visit Provider Family Medicine
DX: C06.9 Malignant neoplasm of mouth, unspecified (principal); Z01.812 Encounter for preprocedural laboratory examination
CPT/HCPCS: 36415; 82565

== ENCOUNTER 2023-06-14 14:26 | Inpatient (IN) | payer MEDICARE, SELFPAY ==
[2023-06-14] VITALS (10 sets, daily range): BP systolic 100–133; BP diastolic 60–74; PULSE 77–100; RESP 13–20; TEMP 36.8–37.3; O2SAT 96–99
--- NOTE | 2023-06-14 14:45 | RT.EKG_ITS ---
APPROVED REPORT Exam: Resting ECG Reason for Exam: syncope Patient Location: E HR:87 bpm ECG Measurements Heart Rate 87 AXIS IN 160 P -2 QRSd 81 QRS 48 QT 288 T 184 QTc 347 Conclusion Sinus rhythm...normal P axis, V-rate 60- 99 Repol abnrm suggests ischemia, diffuse leads...ST-T neg, ant/lat/inf Physician: no stemi, diffuse depressions in V2-V6, this is new compared to prior ekg's. no elevation
--- NOTE | 2023-06-14 14:45 | DI.CT_ITS ---
Exam(s) CT HEAD CERVICAL SPINE WO EXAM: CT HEAD CERVICAL SPINE WO CLINICAL HISTORY: fall, syncope, hit head. TECHNIQUE: Imaging Protocol: Axial computed tomography images with coronal and sagittal reformatted images were created and reviewed COMPARISON: CT CT BRAIN NECK CTA from 05/06/[address] NECK W from 08/05/2021 FINDINGS: CT Head: Ventricles and Extra axial spaces: Normal in size and morphology for the patient's age. Hemorrhage: None. 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 There are areas of decreased a ttenuation in the white matter consistent with small vessel ischemic disease. Midline shift: None. Brainstem/Cerebellum: Normal. Calvarium: Normal. Visualized Paranasal sinuses/Mastoids: Clear. Soft Tissues: Unremarkable. CT Cervical Spine: Bones: No acute fracture or subluxation. Age-appropriate degenerative changes are present. There is straightening of the normal cervical lordosis. This may be due to muscle spasm or patient positionin g. There is chronic deformity of C7. Soft Tissues: Postsurgical changes are seen in the soft tissues of the left submandibular region. Lung Apices: Emphysematous changes are seen in the lung apices. IMPRESSION: 1. No acute intracranial process. 2. No acute fracture or subluxation in the cervical spine. Next 3. Findings were discussed with the emergency department at 3:48 p.m. on 06/14/2023. RADIATION DOSE DELIVERED: Total DLP DATA REPOSITORY: All CT scans at this facility are submitted to the National Radiology Data Registry (NRDR) Dose Index Registry (DIR) with the [employer] ([employer]). RADIATION OPTIMIZATION: All CT scans at this facility use at least one of these dose optimization te chniques: automated exposure control; mA and/or kV adjustment per patient size (includes targeted exa ms where dose is matched to clinical indication); or iterative reconstruction.
--- NOTE | 2023-06-14 14:54 | ED.GENADUL_ITS ---
Discharge Plan Discharge Details Chief Complaint: Fall/Non TraumaCriteria Clinical Impression: Syncope, Acute electrocardiogram changes Primary Care Provider: Aysha Odonnell ED Provider: Pop Merritt Home Meds and New Rx's Prescriptions: No Action nitroglycerin [Nitrostat] 0.4 mg tablet, sublingual 0.4 mg Sublingual PRN Qty: 25 3RF diphth,pertus(acell),tetanus 2.5-8-5 Lf-mcg-Lf/0.5mL syringe 0.5 ml IM ONCE Qty: 0.5 0RF Rx Instructions: as a single dose mirtazapine 7.5 mg tablet 7.5 mg PO QHS Qty: 90 4RF hydrocodone-acetaminophen 5-325 mg tablet 2 tab PO TID MDD 6 PRN (Reason: pain) Qty: 42 0RF aspirin [Ecotrin] 325 MG tablet,delayed release (DR/EC) 325 mg PO DAILY meloxicam 15 mg tablet 15 mg PO DAILY PRN (Reason: pain (scale score 4-6)) Qty: 90 5RF tamsulosin 0.4 mg capsule 0.8 mg PO QHS Qty: 180 3RF hydrochlorothiazide 12.5 mg tablet 12.5 mg PO QAM Qty: 90 4RF metoprolol succinate 50 mg tablet extended release 24 hr 50 mg PO DAILY Qty: 90 4RF cyanocobalamin (vitamin B-12) 1,000 mcg capsule 1,000 mcg PO DAILY Qty: 30 0RF Medical Decision Making 78-year-old male with a past medical history of previous mouth cancer, with subsequent surgical excision, coronary artery disease with stents, Parkinson's disease, some mild baseline confusion, who presents today for evaluation of fall. Family is at bedside, they state that at 5 AM they got a call from the patient that he had fallen. Patient states that he was at the table getting to go get a cup of coffee when he fell and hit the table and hit his head on the table. He states that he did lose consciousness. Family came by and he was confused but otherwise up and ambulatory. He is remained slightly confused throughout the day. He is not on blood thinners but does take a daily aspirin. He denies any headache, chest pain, or shortness of breath. He states that his legs do feel weak compared to normal. He denies any numbness or tingling. No fever or chills. No other complaints at this time. No other modifying factors. Exam demonstrates dry mucous membranes, patient is able to ambulate, no major focal deficits but he does struggle with finger to finger. And nose to finger. He is able to bring his fingers to his own nose without significant difficulty. Speech is clear however he is slightly confused compared to baseline per family. No other significant abnormalities on exam otherwise. Concern for dehydration, potential urinary tract infection or electrolyte abnormality. Concern for intracranial etiology after fall. Concern for potential dysrhythmia. Will evaluate for cardiac etiologies, get a CT scan of the head neck, gently rehydrate, evaluate for infection, monitor closely and reassess. 4:42 PM Laboratory work-up has returned, minimal white count at 11, no bandemia. Electrolytes stable. Troponin normal, thyroid function normal. Urinalysis negative for any evidence of infection. There is mild ketones, potential dehydration. Glucose is not overly elevated. Bicarb normal. Urinalysis suggests no evidence of urinary tract infection as a cause of his symptoms. Patient remained stable. Family still does feel that he is slightly confused. I rediscussed with the patient his symptoms, and he now states that he is having a mild bit of chest achiness. He was asked this multiple times initially, but this was not brought up before. EKG shows diffuse depressions in the anterior lateral leads. Concerned that his syncope may be related to potential cardiac etiology. Especially with EKG changes. Because of this I do feel that admission with potential echo, potential stress testing, serial troponins is reasonable at this time. I did contact the hospitalist and discussed the case with Dr. Ferrara, he agrees with the assessment and plan. I have extensively reviewed the treatment plan with the patient. I have addressed all patient concerns at this time. I have also discussed the plan with the admitting physician and they agree with the current assessment and plan and have agreed to assume responsibility for the patient. All parties demonstrate verbal understanding and agreement with our assessment and plan at this time. The documentation in this chart was dictated using v[employer]ise dictation software. Please excuse any dictation errors. NDINGS: BONES: No acute fracture is present. No bony destructive lesion is seen. JOINTS: The elbow is normally aligned. No joint effusion is seen. SOFT TISSUE: Normal. IMPRESSION: Unremarkable radiographs of the left elbow. FINDINGS: CT Head: Ventricles and Extra axial spaces: Normal in size and morphology for the patient's age. Hemorrhage: None. 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 There are areas of decreased attenuation in the white matter consistent with small vessel ischemic disease. Midline shift: None. Brainstem/Cerebellum: Normal. Calvarium: Normal. Visualized Paranasal sinuses/Mastoids: Clear. Soft Tissues: Unremarkable. CT Cervical Spine: Bones: No acute fracture or subluxation. Age-appropriate degenerative changes are present. There is straightening of the normal cervical lordosis. This may be due to muscle spasm or patient positioning. There is chronic deformity of C7. Soft Tissues: Postsurgical changes are seen in the soft tissues of the left submandibular region. Lung Apices: Emphysematous changes are seen in the lung apices. IMPRESSION: 1. No acute intracranial process. 2. No acute fracture or subluxation in the cervical spine. Next 3. Findings were discussed with the emergency department at 3:48 p.m. on 06/14/2023. HPI General Date/Time Provider Initiated Documentation: 06/14/23 14:34 . HPI Narrative: 78-year-old male with a past medical history of previous mouth cancer, with subsequent surgical excision, coronary artery disease with stents, Parkinson's disease, some mild baseline confusion, who presents today for evaluation of fall. Family is at bedside, they state that at 5 AM they got a call from the patient that he had fallen. Patient states that he was at the table getting to go get a cup of coffee when he fell and hit the table and hit his head on the table. He states that he did lose consciousness. Family came by and he was confused but otherwise up and ambulatory. He is remained slightly confused throughout the day. He is not on blood thinners but does take a daily aspirin. He denies any headache, chest pain, or shortness of breath. He s tates that his legs do feel weak compared to normal. He denies any numbness or tingling. No fever or chills. No other complaints at this time. No other modifying factors. Related Data Home Medications Medication Instructions Recorded Confirmed aspirin 325 mg tablet,delayed 325 mg PO DAILY 01/26/13 06/14/23 release (Ecotrin) nitroglycerin 0.4 mg sublingual 0.4 mg sublingual PRN #25 tabs 03/30/21 06/14/23 tablet (Nitrostat) cyanocobalamin (vitamin B-12) 1,000 mcg PO DAILY #30 caps 05/07/21 06/14/23 1,000 mcg capsule meloxicam 15 mg tablet 15 mg PO DAILY PRN pain (scale 10/01/21 06/14/23 score 4-6) #90 tabs tamsulosin 0.4 mg capsule 0.8 mg PO QHS #180 caps 02/03/22 06/14/23 hydrochlorothiazide 12.5 mg tablet 12.5 mg PO QAM #90 tabs 10/15/22 06/14/23 diphth,pertus(acell),tetanus 2.5 0.5 ml IM ONCE #0.5 mL 11/01/22 06/14/23 Lf unit-8 mcg-5 Lf/0.5mL IM syringe mirtazapine 7.5 mg tablet 7.5 mg PO QHS #90 tabs 11/01/22 06/14/23 metoprolol succinate 50 mg 50 mg PO DAILY #90 tabs 01/17/23 06/14/23 tablet,extended release 24 hr hydrocodone 5 mg-acetaminophen 325 2 tab PO TID PRN pain #42 tabs 04/04/23 06/14/23 mg tablet Previous Rx's Medication Instructions Recorded nitroglycerin 0.4 mg sublingual 0.4 mg sublingual PRN #25 tabs 03/30/21 tablet (Nitrostat) cyanocobalamin (vitamin B-12) 1,000 mcg PO DAILY #30 caps 05/07/21 1,000 mcg capsule meloxicam 15 mg tablet 15 mg PO DAILY PRN pain (scale 10/01/21 score 4-6) #90 tabs tamsulosin 0.4 mg capsule 0.8 mg PO QHS #180 caps 02/03/22 hydrochlorothiazide 12.5 mg tablet 12.5 mg PO QAM #90 tabs 10/15/22 diphth,pertus(acell),tetanus 2.5 0.5 ml IM ONCE #0.5 mL 11/01/22 Lf unit-8 mcg-5 Lf/0.5mL IM syringe mirtazapine 7.5 mg tablet 7.5 mg PO QHS #90 tabs 11/01/22 metoprolol succinate 50 mg 50 mg PO DAILY #90 tabs 01/17/23 tablet,extended release 24 hr hydrocodone 5 mg-acetaminophen 325 2 tab PO TID PRN pain #42 tabs 04/04/23 mg tablet Allergies Allergy/AdvReac Type Severity Reaction Status Date / Time acetaminophen [From Percocet] AdvReac hallucinati Verified 06/14/23 15:23 ons lorazepam [From Ativan] AdvReac hallucinati Verified 06/14/23 15:23 ons oxycodone [From Percocet] AdvReac hallucinati Verified 06/14/23 15:23 ons General Stated Complaint: Fall/Non TraumaCriteria SREEDHAR: 3 Review of Systems All systems reviewed & are unremarkable except as noted in HPI and below PFSH All Active Problems (Updated 06/14/23 @ 16:53 by Pop Merritt DO) Syncope (Chronic) Acute electrocardiogram changes (Acute) Neck mass (Acute) Impacted cerumen, bilateral (Acute) History of smoking (Acute) Urinary frequency (Acute) Tongue cancer (Acute) Tongue ulcer (Acute) Tongue sore (Acute) Imbalance (Acute) Memory loss (Acute) Carotid stenosis (Acute) B12 deficiency (Acute) Secondary polycythemia (Chronic) Macrocytosis (Chronic) Parkinsons disease (Chronic) Elevated MCV (Acute) Acute CVA (cerebrovascular accident) (Acute) Advance care planning (Acute) BPH (benign prostatic hyperplasia) (Chronic) History of intravascular stent placement (Chronic) ASCVD (arteriosclerotic cardiovascular disease) (Chronic) Cyst of kidney, acquired (Chronic) RIGHT; stent placed approx. 2 1/2 years ago Diverticulosis of colon without diverticulitis (Chronic) SIGMOID COLECTOMY; unable to have another colonoscopy due to cost Hyperlipidemia (Chronic) Lumbar disc prolapse with compression radiculopathy (Chronic 08/03/07) 02/06 MRI: L5/S1 DISC HERNIATION Polycythemia vera (Chronic) secondary to smoking Right shoulder pain (Chronic 07/22/15) Essential hypertension (Chronic 06/27/13) Chronic pain disorder (Chronic) CONTRACT 01/19/16 06/06/17 CONTROLLED SUBSTANCE AGREEMENT~RENEWED Medical History Alcohol abuse 10/03/08 quit 2004 H/O sigmoidoscopy Herpes zoster 06/04/05 OD History of alcoholism Smoker Smoker Surgical History History of intravascular stent placement S/P partial glossectomy 09/22/2021 Sigmoidoscopy (~10/1998) Stent placement Family History Mother Neoplasm lung Father , BLOOD CLOT at age 84. Heart disease Brother Diabetes Heart disease Grandfather No problems noted. Grandfather No problems noted. Grandmother No problems noted. Grandmother No problems noted. Sister No problems noted. Sister No problems noted. Sister No problems noted. Brother Neoplasm Brother Stroke Son No problems noted. Daughter No problems noted. Daughter No problems noted. Social History Smoking/Tobacco Use Status: Former Tobacco Use tobacco type: cigarettes and smokeless tobacco Quit Date: 09/05/06 Tobacco: How many years used: 25 Smokeless tobacco user: chewing tobacco Second Hand Exposure: Yes Counseling given: counseling >10 minutes Smoking risk assessment performed?: Yes Alcohol Intake: former Drug use: Never Substance use type: does not use Caregiver/Support person: No Household members: none Housing: house Do you need help understanding health information?: Often Pets and animals: Yes Pets and animals: cat(s) and dog(s) Sexually active: Yes Do you think of yourself as: straight/heterosexual Current gender identity: male What is your relationship status?: How often do you talk on the phone with friends or family?: three or more times per week How often do you get together with friends or relatives?: three or more times per week How often do you attend jain or orthodox services?: decline to answer Do you belong to any clubs or organized social groups?: no Panel score (0-1 are the most socially isolated patients): 2 What type of physical activity do you participate in: none Duration: 45-60 minutes/day Frequency: 1-2 times per week Rubia/Jew: Judaism Special rubia needs: No Seatbelt use: always Helmet use: Yes Helmet use: always Drive intox or ride w/intox 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 3.ENT: Atraumatic external nose and ears. Dry MM. Neck: Symmetric, trachea midline, No thyromegaly. 4.CVS: +S1/S2, No murmurs or gallops. Peripheral pulses 2+ and equal in all extremities. Brisk capillary refill in all extremities. 5.RESP: Unlabored respiratory effort. Clear to auscultation bilaterally. No wheezes rales or rhonchi 6.GI: Soft, Nontender/Nondistended, No hepatosplenomegaly. No guarding or rebound. 7.MSK: Normocephalic/Atraumatic, Extremities w/o deformity. No cyanosis or clubbing, Normal movement of all extremities. Minimal soreness over left elbow. No effusion or swelling. 8.Skin: Warm, Dry. No rashes or lesions. 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 Sensation grossly intact, All 6 cardinal planes of vision are fully intact. No evidence of rotatory or vertical nystagmus. Patient is unable to understand or perform finger to finger, but is able to bring his finger to his nose.. There was no evidence of dysdiadochokinesia. Patient was able to ambulate without major difficulty di fficulty. There was no wide-based gait.Sensation was intact bilaterally as well as muscle strength bilaterally for all extremities. Patient was able to verbalize butter cup with no slurring, or miss pronunciation. 10.Psych: (AAO) x3. Appropriate mood and affect Course Vital Signs Vital signs: Vital Signs Temperature 36.8 C 06/14/23 14:43 Pulse 88 06/14/23 14:43 Respiratory Rate 20 06/14/23 14:43 Blood Pressure 119/72 06/14/23 14:43 Pulse Oximetry 99 06/14/23 14:43 Temperature 36.8 C 06/14/23 14:43 Pulse 88 06/14/23 14:43 Respiratory Rate 20 06/14/23 14:43 Blood Pressure 119/72 06/14/23 14:43 Blood Pressure Position Sitting 06/14/23 14:43 Pulse Oximetry 99 06/14/23 14:43 Oxygen Delivery Method Room Air 06/14/23 14:43 Oxygen Flow Rate 0 06/14/23 14:43
[2023-06-14 15:17] LABS: BE (Venous) 3 mmol/L (-2-3); HCO3 (Venous) 27 mmol/L (23-28); Lactate 1.1 mmol/L (0.6-1.4); O2 Sat (Venous) 53 %; TCO2 (Venous) 25 mmol/L (24-29); pCO2 (Venous) 43 mmHg (41-51); pH (Venous) 7.42 (7.31-7.41); pO2 (Venous) 28 mmHg
[2023-06-14 15:18] LABS: Abs Immature Grans 0.09 10^3/uL (0.0-0.06); Absolute Basophil Count 0.03 10^3/uL (0.0-0.2); Absolute Eosinophil Count 0.03 10^3/uL (0.0-0.7); Absolute Monocyte Count 1.17 10^3/uL (0.1-0.8); Basophils % 0.3; Eosinophils % 0.3; HCT 37.3 % (40.0-50.0); Immature Grans % 0.8; Lymphocytes % 3.2; MCH 30.6 pg (27.0-33.0); MCHC 34.9 % (32.0-36.0); MCV 88 fL (80-95); MPV 9.3 fL (8.0-11.0); Monocytes % 10.5; Neutrophils % 84.9; Platelet Count 192 10^3/uL (130-400); RBC 4.25 10^6/uL (4.36-5.78); RDW 12.3 % (11.8-14.1); RDW-SD 39.8 fL; WBC 11.11 10^3/uL (4.4-10.8)
[2023-06-14 15:19] LABS: Absolute Lymphocyte Count 0.36 10^3/uL (1.2-3.4); Absolute Neutrophil Count 9.43 10^3/uL (1.2-6.7)
[2023-06-14 15:36] LABS: ALT 18 U/L (16-63); AST 15 U/L (15-37); Albumin 4.2 g/dL (3.4-5.0); Alkaline Phosphatase 89 U/L (46-116); Anion Gap 9.1 mmol/L (3-11); BUN 15 mg/dL (7-18); Bilirubin, Total 0.9 mg/dL (0.2-1.0); CO2 26.9 mmol/L (21.0-32.0); CREATININE 0.9 mg/dL (0.70-1.30); Calcium 9.8 mg/dL (8.5-10.1); Chloride 97 mmol/L (98-107); Estimated GFR 88.51 (mL/min/1.73m2); Glucose 126 mg/dL (74-106); Potassium 3.7 mmol/L (3.5-5.1); Sodium 133 mmol/L (136-145); Total Protein 7.6 g/dL (6.4-8.2)
[2023-06-14 15:44] LABS: TSH (W/Ref FT4) 1.52 uIU/mL (0.36-3.74); Troponin I < 50 ng/L (<or=60)
--- NOTE | 2023-06-14 15:44 | DI.RAD_ITS ---
Exam(s) XR ELBOW LT COMPLETE EXAM: XR ELBOW LT COMPLETE CLINICAL HISTORY: left elbow pain after fall. TECHNIQUE: 2D digital imaging was performed of the left elbow. Three images were obtained. AP, lat eral and oblique views were obtained. COMPARISON: No exams were available for comparison FINDINGS: BONES: No acute fracture is present. No bony destructive lesion is seen. JOINTS: The elbow is normally aligned. No joint effusion is seen. SOFT TISSUE: Normal. IMPRESSION: Unremarkable radiographs of the left elbow. DATA REPOSITORY: RADIATION DOSE DELIVERED:
[2023-06-14] MEDS: Normal Saline 500 ML IV (15:52)
[2023-06-14 15:58] LABS: COVID-19 PCR Negative (Negative); Influenza A PCR Negative (Negative); Influenza B PCR Negative (Negative); RSV PCR Negative (Negative)
[2023-06-14 16:00] LABS: Source NASOPHARYNX
[2023-06-14 16:20] LABS: Bilirubin Negative (Negative); Blood Small (Negative); Clarity Clear (Clear); Glucose Negative (Negative); Ketones 40 mg/dL (Negative); Leukocyte Esterase Negative (Negative); Nitrite Negative (Negative)
[2023-06-14 16:41] LABS: Bacteria Rare HPF (Negative); C & S Indicated? No; Casts Negative LPF (Negative); Crystals Negative HPF (Negative); Epithelial Cells Rare HPF (Negative); Mucus Negative (Negative); WBC 0-2 HPF (0-5)
--- NOTE | 2023-06-14 16:54 | W.PM.HP.N ---
Date of service: 06/14/23 Time of Service: 16:54 Assessment and Plan Assessment and plan (1) Syncope: Status: Chronic Assessment and plan: troponin negative, in sinus rhythm with diffuse st segment depressions, will place in obs on telemetry. cycle troponins and repeat EKG. orthostatic vitals. fall precautions PT consult (2) Acute electrocardiogram changes: Status: Acute Assessment and plan: negative troponin. will continue to cycle. history of CAD s/p cardiac stent echo in am (3) BPH (benign prostatic hyperplasia): Status: Chronic Assessment and plan: on tamsulosin which could have caused fall secondary to orthostatic hypotension will check ortho vitals, and monitor BP and for symptoms closely (4) Essential hypertension: Status: Chronic Assessment and plan: blood pressure stable, monitor and continue home medication. continue metropolol and hctz discussed with DR Ferrara History of Present Illness History of Present Illness Chief Complaint: syncope Narrative: This is a 78 year old who lives independently, history of cardiac stent, cognitive impairment who called family at 5 am to report he had fallen, family found him confused so he eventually presented here for evaluation. work up in the ED was essentially unremarkable but EKG did show some diffuse st segment depressions but no reciprocal changes. troponin negative, head ct negative, and no obvious evidence of trauma on physical exam. case is discussed with hospitalist services who accepts for observation admission on telemetry. Review of Systems All systems reviewed & are unremarkable except as noted in HPI and below PFSH All Active Problems (Updated 06/15/23 @ 13:48 by Lawanda Christina NP) NSTEMI (non-ST elevated myocardial infarction) (Acute) Syncope (Chronic) Acute electrocardiogram changes (Acute) Neck mass (Acute) Impacted cerumen, bilateral (Acute) History of smoking (Acute) Urinary frequency (Acute) Tongue cancer (Acute) Tongue ulcer (Acute) Tongue sore (Acute) Imbalance (Acute) Memory loss (Acute) Carotid stenosis (Acute) B12 deficiency (Acute) Secondary polycythemia (Chronic) Macrocytosis (Chronic) Parkinsons disease (Chronic) Elevated MCV (Acute) Acute CVA (cerebrovascular accident) (Acute) Advance care planning (Acute) BPH (benign prostatic hyperplasia) (Chronic) History of intravascular stent placement (Chronic) ASCVD (arteriosclerotic cardiovascular disease) (Chronic) Cyst of kidney, acquired (Chronic) RIGHT; stent placed approx. 2 1/2 years ago Diverticulosis of colon without diverticulitis (Chronic) SIGMOID COLECTOMY; unable to have another colonoscopy due to cost Hyperlipidemia (Chronic) Lumbar disc prolapse with compression radiculopathy (Chronic 08/03/07) 02/06 MRI: L5/S1 DISC HERNIATION Polycythemia vera (Chronic) secondary to smoking Right shoulder pain (Chronic 07/22/15) Essential hypertension (Chronic 06/27/13) Chronic pain disorder (Chronic) CONTRACT 01/19/16 06/06/17 CONTROLLED SUBSTANCE AGREEMENT~RENEWED Medical History Alcohol abuse 10/03/08 quit 2004 H/O sigmoidoscopy Herpes zoster 06/04/05 OD History of alcoholism Smoker Smoker Surgical History History of intravascular stent placement S/P partial glossectomy 09/22/2021 Sigmoidoscopy (~10/1998) Stent placement Family History Mother Neoplasm lung Father , BLOOD CLOT at age 84. Heart disease Brother Diabetes Heart disease Grandfather No problems noted. Grandfather No problems noted. Grandmother No problems noted. Grandmother No problems noted. Sister No problems noted. Sister No problems noted. Sister No problems noted. Brother Neoplasm Brother Stroke Son No problems noted. Daughter No problems noted. Daughter No problems noted. Social History Smoking/Tobacco Use Status: Former Tobacco Use tobacco type: cigarettes and smokeless tobacco Quit Date: 09/05/06 Tobacco: How many years used: 25 Smokeless tobacco user: chewing tobacco Second Hand Exposure: Yes Counseling given: counseling >10 minutes Smoking risk assessment performed?: Yes Alcohol Intake: former Drug use: Never Substance use type: does not use Caregiver/Support person: No Household members: none Housing: house Do you need help understanding health information?: Often Pets and animals: Yes Pets and animals: cat(s) and dog(s) Sexually active: Yes Do you think of yourself as: straight/heterosexual Current gender identity: male What is your relationship status?: How often do you talk on the phone with friends or family?: three or more times per week How often do you get together with friends or relatives?: three or more times per week How often do you attend latter-day or buddhism services?: decline to answer Do you belong to any clubs or organized social groups?: no Panel score (0-1 are the most socially isolated patients): 2 What type of physical activity do you participate in: none Duration: 45-60 minutes/day Frequency: 1-2 times per week Rubia/Nondenominational: Anglican Special rubia needs: No Seatbelt use: always Helmet use: Yes Helmet use: always Drive intox or ride w/intox explosives truck driver: No Do you feel safe at home: Yes Do you feel safe in your relationship?: Yes Meds Allergies and Home Medications Allergies Allergy/AdvReac Type Severity Reaction Status Date / Time acetaminophen [From Percocet] AdvReac hallucinati Verified 06/14/23 15:23 ons lorazepam [From Ativan] AdvReac hallucinati Verified 06/14/23 15:23 ons oxycodone [From Percocet] AdvReac hallucinati Verified 06/14/23 15:23 ons Home Medications Medication Instructions Recorded Confirmed Type aspirin 325 mg tablet,delayed 325 mg PO DAILY 01/26/13 06/14/23 History release (Ecotrin) nitroglycerin 0.4 mg sublingual 0.4 mg sublingual PRN #25 tabs 03/30/21 06/14/23 Rx tablet (Nitrostat) cyanocobalamin (vitamin B-12) 1,000 mcg PO DAILY #30 caps 05/07/21 06/14/23 Rx 1,000 mcg capsule meloxicam 15 mg tablet 15 mg PO DAILY PRN pain (scale 10/01/21 06/14/23 Rx score 4-6) #90 tabs tamsulosin 0.4 mg capsule 0.8 mg PO QHS #180 caps 02/03/22 06/14/23 Rx hydrochlorothiazide 12.5 mg tablet 12.5 mg PO QAM #90 tabs 10/15/22 06/14/23 Rx diphth,pertus(acell),tetanus 2.5 0.5 ml IM ONCE #0.5 mL 11/01/22 06/14/23 Rx Lf unit-8 mcg-5 Lf/0.5mL IM syringe mirtazapine 7.5 mg tablet 7.5 mg PO QHS #90 tabs 02/27/23 10/10/23 Rx metoprolol succinate 50 mg 50 mg PO DAILY #90 tabs 01/17/23 06/14/23 Rx tablet,extended release 24 hr hydrocodone 5 mg-acetaminophen 325 2 tab PO TID PRN pain #42 tabs 04/04/23 06/14/23 Rx mg tablet Results Labs 06/15/23 05:00 06/15/23 05:00 Labs: Laboratory Results - last 24 hr 06/14/23 06/14/23 06/14/23 15:11 15:11 15:11 WBC RBC Hgb Hct MCV MCH MCHC RDW Plt Count MPV Immature Gran % Neutrophils % Lymphocytes % Monocytes % Eosinophils % Basophils % Nucleated RBC % Absolute Neutrophils Absolute Lymphocytes Absolute Monocytes Absolute Eosinophils Absolute Basophils VBG pH 7.42 H VBG pCO2 43 VBG pO2 28 VBG HCO3 27 VBG Total CO2 25 VBG O2 Saturation 53 VBG Base Excess 3 VBG Lactate Sodium 133 L Potassium 3.7 Chloride 97 L Carbon Dioxide 26.9 Anion Gap 9.1 BUN 15 Creatinine 0.9 Est GFR (CKD-EPI 2020) 88.51 Glucose 126 H Calcium 9.8 Total Bilirubin 0.9 AST 15 ALT 18 Alkaline Phosphatase 89 Troponin I < 50 Total Protein 7.6 Albumin 4.2 TSH 1.52 Urine Color Urine Clarity Urine pH Ur Specific [place] Urine Protein Urine Ketones Urine Blood Urine Nitrite Urine Bilirubin Urine Urobilinogen Ur Leukocyte Esterase Urine RBC Urine WBC Ur Epithelial Cells Urine Crystals Urine Bacteria Urine Casts Urine Mucus Ur Culture Indicated? Urine Glucose COVID-19 Source SARS-CoV-2 (PCR) Influenza Type A (PCR) Influenza Type B (PCR) RSV (PCR) 06/14/23 06/14/23 06/14/23 15:11 15:11 15:18 WBC 11.11 H RBC 4.25 L Hgb 13.0 L Hct 37.3 L MCV 88 MCH 30.6 MCHC 34.9 RDW 12.3 Plt Count 192 MPV 9.3 Immature Gran % 0.8 Neutrophils % 84.9 Lymphocytes % 3.2 Monocytes % 10.5 Eosinophils % 0.3 Basophils % 0.3 Nucleated RBC % 0.0 Absolute Neutrophils 9.43 H Absolute Lymphocytes 0.36 L Absolute Monocytes 1.17 H Absolute Eosinophils 0.03 Absolute Basophils 0.03 VBG pH VBG pCO2 VBG pO2 VBG HCO3 VBG Total CO2 VBG O2 Saturation VBG Base Excess VBG Lactate 1.1 Sodium Potassium Chloride Carbon Dioxide Anion Gap BUN Creatinine Est GFR (CKD-EPI 2020) Glucose Calcium Total Bilirubin AST ALT Alkaline Phosphatase Troponin I Total Protein Albumin TSH Urine Color Urine Clarity Urine pH Ur Specific [place] Urine Protein Urine Ketones Urine Blood Urine Nitrite Urine Bilirubin Urine Urobilinogen Ur Leukocyte Esterase Urine RBC Urine WBC Ur Epithelial Cells Urine Crystals Urine Bacteria Urine Casts Urine Mucus Ur Culture Indicated? Urine Glucose COVID-19 Source NASOPHARYNX SARS-CoV-2 (PCR) Negative Influenza Type A (PCR) Negative Influenza Type B (PCR) Negative RSV (PCR) Negative 06/14/23 16:08 WBC RBC Hgb Hct MCV MCH MCHC RDW Plt Count MPV Immature Gran % Neutrophils % Lymphocytes % Monocytes % Eosinophils % Basophils % Nucleated RBC % Absolute Neutrophils Absolute Lymphocytes Absolute Monocytes Absolute Eosinophils Absolute Basophils VBG pH VBG pCO2 VBG pO2 VBG HCO3 VBG Total CO2 VBG O2 Saturation VBG Base Excess VBG Lactate Sodium Potassium Chloride Carbon Dioxide Anion Gap BUN Creatinine Est GFR (CKD-EPI 2020) Glucose Calcium Total Bilirubin AST ALT Alkaline Phosphatase Troponin I Total Protein Albumin TSH Urine Color Yellow Urine Clarity Clear Urine pH 7.0 Ur Specific [place] 1.020 Urine Protein Trace H Urine Ketones 40 H Urine Blood Small H Urine Nitrite Negative Urine Bilirubin Negative Urine Urobilinogen 1.0 H Ur Leukocyte Esterase Negative Urine RBC 5-10 H Urine WBC 0-2 Ur Epithelial Cells Rare Urine Crystals Negative Urine Bacteria Rare Urine Casts Negative Urine Mucus Negative Ur Culture Indicated? No Urine Glucose Negative COVID-19 Source SARS-CoV-2 (PCR) Influenza Type A (PCR) Influenza Type B (PCR) RSV (PCR) Last Vital Signs Temp 36.8 C 06/14/23 14:43 Pulse 88 06/14/23 16:16 Resp 16 06/14/23 16:16 BP 125/74 06/14/23 16:16 Pulse Ox 99 06/14/23 16:16 Time Spent Time spent with Patient: 40-54 minutes Time was spent: preparing to see the patient(eg.review tests), obtaining and/or reviewing separately otained hiistory, ordering medications,tests, procedures, indepentently interpreting results and counseling the patient
[2023-06-14] MEDS: Lidocaine 5% Patch 1 PATCH (17:04)
[2023-06-14 17:22] LABS: Troponin I 57 ng/L (<or=60)
[2023-06-14] MEDS: Tamsulosin 0.4 MG CAPCR 0.8 MG PO (21:23)
[2023-06-14] MEDS: Mirtazapine 15 MG TAB 7.5 MG PO (21:23)
[2023-06-14 22:35] LABS: Troponin I 345 ng/L (<or=60)
[2023-06-14] MEDS: Clopidogrel 300 MG TAB PO (23:06)
[2023-06-14] MEDS: Atorvastatin 40 MG TAB 80 MG PO (23:06)
[2023-06-14] MEDS: Heparin in 0.45% NaCl 25,000 UNIT/250 ML BAG 7.5 UNIT IV (23:12)
--- NOTE | 2023-06-15 00:30 | RT.EKG_ITS ---
APPROVED REPORT Exam: Resting ECG Reason for Exam: positive troponin, assess evolution of EKG changes Patient Location: I HR:74 bpm ECG Measurements Heart Rate 74 AXIS LA 160 P -35 QRSd 84 QRS 51 QT 365 T 59 QTc 405 Conclusion Sinus rhythm...normal P axis, V-rate 50- 99 Low voltage, extremity leads...all extremity leads <0.5mV Abnormal R-wave progression, early transition...QRS area>[address] depression, anterolateral leads...ST <-0.04mV, I aVL V2-V6
--- NOTE | 2023-06-15 02:13 | W.EVENT ---
Date of service: 06/15/23 Time of Service: 02:14 Event Note: I was called for + troponin. I went to see patient. Still no chest pain. Given EKG changes and troponins I treated with loading clopidogrel, atorvastatin, and heparin drip for NSTEMI. His exam and mental status remained stable. EKG repeated, showed improvement, near resolution of anterolateral ST depression. Consult with [facility] cardiology considered but when I asked Mauricio about going to [facility] for more heart testing he said he didn't want to go, maybe tomorrow. Continue treating medically. Time Spent with Patient Time spent in critical care(minutes): 20 Time Spent Included: Chart review, Documenting critically ill care and Time at immediate bedside
[2023-06-15 03:46] VITALS: BP 111/62; PULSE 74; RESP 20; TEMP 37.6; O2SAT 96
[2023-06-15 05:07] LABS: Abs Immature Grans 0.04 10^3/uL (0.0-0.06); Absolute Basophil Count 0.02 10^3/uL (0.0-0.2); Absolute Eosinophil Count 0.08 10^3/uL (0.0-0.7); Absolute Lymphocyte Count 0.68 10^3/uL (1.2-3.4); Absolute Monocyte Count 0.98 10^3/uL (0.1-0.8); Absolute Neutrophil Count 5.68 10^3/uL (1.2-6.7); Basophils % 0.3; Eosinophils % 1.1; HCT 38.3 % (40.0-50.0); HGB 13.3 g/dL (13.5-17.5); Immature Grans % 0.5; Lymphocytes % 9.1; MCH 30.2 pg (27.0-33.0); MCHC 34.7 % (32.0-36.0); MCV 87 fL (80-95); MPV 9.2 fL (8.0-11.0); Monocytes % 13.1; Neutrophils % 75.9; Platelet Count 184 10^3/uL (130-400); RBC 4.41 10^6/uL (4.36-5.78); RDW 12.3 % (11.8-14.1); RDW-SD 39.6 fL; WBC 7.48 10^3/uL (4.4-10.8)
[2023-06-15 05:19] LABS: Anion Gap 10.3 mmol/L (3-11); BUN 11 mg/dL (7-18); CO2 24.7 mmol/L (21.0-32.0); CREATININE 0.8 mg/dL (0.70-1.30); Calcium 9.7 mg/dL (8.5-10.1); Chloride 102 mmol/L (98-107); Estimated GFR 91.72 (mL/min/1.73m2); Glucose 102 mg/dL (74-106); Potassium 3.5 mmol/L (3.5-5.1); Sodium 137 mmol/L (136-145)
[2023-06-15 05:23] LABS: PTT Activated 56.6 sec (23.6-32.8)
[2023-06-15 05:28] LABS: Troponin I 492 ng/L (<or=60)
[2023-06-15 07:15] VITALS: BP 112/63; PULSE 78; RESP 16; TEMP 35.7; O2SAT 96
[2023-06-15] MEDS: Cyanocobalamin 500 MCG TAB 1000 MCG PO (07:57)
[2023-06-15] MEDS: Metoprolol CR 50 MG TABCR PO (07:57)
[2023-06-15] MEDS: hydroCHLOROthiazide 12.5 MG TAB PO (07:58)
[2023-06-15] MEDS: Clopidogrel 75 MG TAB PO (08:01)
[2023-06-15] MEDS: Aspirin E.C. 325 MG TABEC PO (08:01)
[2023-06-15 10:34] LABS: Troponin I 490 ng/L (<or=60)
--- NOTE | 2023-06-15 10:34 | INITIAL_ITS ---
Date of service: 06/15/23 Time of Service: 10:34 Care Management Initial Assmt Initial Assessment REASON FOR HOSPITALIZATION:: syncope PREVIOUS FUNCTIONAL STATUS/SOCIAL/FAMILY SUPPORTS:: Mickey lives alone in a single family home in [place]. He is however his has been in a half-way for about a year. Cory has 2 daughters, Madonna and Urmila and a son Dre. 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 He nidhi ins independent and continues to drive. Mickey does receive Meals on Wheels. He does not use any assistive devices for ambulation but keeps a bedside commode close by at night as he has nocturia. CURRENT FUNCTIONAL STATUS:: Mickey was sitting up in bed visiting with his daughter Madonna when CM met with him. He was pleasant in interaction and agreeable to conversation. He talked a bit about his family, especially his children and noted that they are all close and very supportive. He informed CM that he is feeling much better and that his chest pain is gone. Mickey was admitted with syncope but has been found to have had an NSTEMI which is being treated with heparin, Plavix, ASA and a beta bob. Madonna noted that Mickey has become a bit unsteady and indicated that she felt he might benefit from home health services when discharged. ADVANCE DIRECTIVES:: on file. daughter Urmila Cor[facility] Has patient been provided with info about the portal/API?: Yes Did the patient sign up for the portal?: Yes CODE STATUS:: DNR/DNI INSURANCE COVERAGE / FINANCIAL ISSUES:: Medicare Financial Assist 100 CURRENT HOME/COMMUNITY SERVICES/EQUIPMENT:: Meals on Wheels PRIMARY CARE PHYSICIAN:: Aysha Odonnell POTENTIAL DISCHARGE NEEDS:: Follow up with community providers and plan of care PATIENT/FAMILY EDUCATION NEEDS:: Review of discharge instructions, limitations, follow up plan, discuss Ask me Three TRANSPORTATION:: via private vehicle with family PLAN:: Mauricio will likely return home with new home health services for PT, OT and 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 he will follow up with his community providers and plan of care and transport with family. CM will follow and assess for discharge planning issues and concerns. PFSH All Active Problems (Updated 06/15/23 @ 13:48 by Lawanda Christina NP) NSTEMI (non-ST elevated myocardial infarction) (Acute) Syncope (Chronic) Acute electrocardiogram changes (Acute) Neck mass (Acute) Impacted cerumen, bilateral (Acute) History of smoking (Acute) Urinary frequency (Acute) Tongue cancer (Acute) Tongue ulcer (Acute) Tongue sore (Acute) Imbalance (Acute) Memory loss (Acute) Carotid stenosis (Acute) B12 deficiency (Acute) Secondary polycythemia (Chronic) Macrocytosis (Chronic) Parkinsons disease (Chronic) Elevated MCV (Acute) Acute CVA (cerebrovascular accident) (Acute) Advance care planning (Acute) BPH (benign prostatic hyperplasia) (Chronic) History of intravascular stent placement (Chronic) ASCVD (arteriosclerotic cardiovascular disease) (Chronic) Cyst of kidney, acquired (Chronic) RIGHT; stent placed approx. 2 1/2 years ago Diverticulosis of colon without diverticulitis (Chronic) SIGMOID COLECTOMY; unable to have another colonoscopy due to cost Hyperlipidemia (Chronic) Lumbar disc prolapse with compression radiculopathy (Chronic 08/03/07) 02/06 MRI: L5/S1 DISC HERNIATION Polycythemia vera (Chronic) secondary to smoking Right shoulder pain (Chronic 07/22/15) Essential hypertension (Chronic 06/27/13) Chronic pain disorder (Chronic) CONTRACT 01/19/16 06/06/17 CONTROLLED SUBSTANCE AGREEMENT~RENEWED Medical History Alcohol abuse 10/03/08 quit 2004 H/O sigmoidoscopy Herpes zoster 06/04/05 OD History of alcoholism Smoker Smoker Surgical History History of intravascular stent placement S/P partial glossectomy 09/22/2021 Sigmoidoscopy (~10/1998) Stent placement Family History Mother Neoplasm lung Father , BLOOD CLOT at age 84. Heart disease Brother Diabetes Heart disease Grandfather No problems noted. Grandfather No problems noted. Grandmother No problems noted. Grandmother No problems noted. Sister No problems noted. Sister No problems noted. Sister No problems noted. Brother Neoplasm Brother Stroke Son No problems noted. Daughter No problems noted. Daughter No problems noted. Social History Smoking/Tobacco Use Status: Former Tobacco Use tobacco type: cigarettes and smokeless tobacco Quit Date: 09/05/06 Tobacco: How many years used: 25 Smokeless tobacco user: chewing tobacco Second Hand Exposure: Yes Counseling given: counseling >10 minutes Smoking risk assessment performed?: Yes Alcohol Intake: former Drug use: Never Substance use type: does not use Caregiver/Support person: No Household members: none Housing: house Do you need help understanding health information?: Often Pets and animals: Yes Pets and animals: cat(s) and dog(s) Sexually active: Yes Do you think of yourself as: straight/heterosexual Current gender identity: male What is your relationship status?: How often do you talk on the phone with friends or family?: three or more times per week How often do you get together with friends or relatives?: three or more times per week How often do you attend adventist or zoroastrianism services?: decline to answer Do you belong to any clubs or organized social groups?: no Panel score (0-1 are the most socially isolated patients): 2 What type of physical activity do you participate in: none Duration: 45-60 minutes/day Frequency: 1-2 times per week Rubia/Jewish: Judaism Special rubia needs: No Seatbelt use: always Helmet use: Yes Helmet use: always Drive intox or ride w/intox moving van driver: No Do you feel safe at home: Yes Do you feel safe in your relationship?: Yes
[2023-06-15 11:20] VITALS: BP 112/66; PULSE 68; RESP 20; TEMP 36.7; O2SAT 98
[2023-06-15 12:17] LABS: PTT Activated 47.2 sec (23.6-32.8)
--- NOTE | 2023-06-15 13:45 | W.PM.PROGNOT ---
Date of Service Date of service: 06/15/23 Time of Service: 13:45 Assessment and Plan Assessment and plan (1) NSTEMI (non-ST elevated myocardial infarction): Status: Acute Assessment and plan: troponin peaked at 492, no chest pain, remains hemodynamically stable continue heparin, plavix, asa, beta bob cardiology consult continue telemetry and close monitoring. (2) Acute electrocardiogram changes: Status: Acute Assessment and plan: positive troponins now flat, no chest pain with improved EKG st depressions. history of CAD s/p cardiac stent echo pending will place cardiology consult (3) Syncope: Status: Chronic Assessment and plan: no further episodes, continue on telemetry. orthostatic vitals. fall precautions PT consult when stable (4) BPH (benign prostatic hyperplasia): Status: Chronic Assessment and plan: continue tamsulosin monitor for urinary retention (5) Essential hypertension: Status: Chronic Assessment and plan: blood pressure stable, monitor and continue home medication. continue metropolol and hctz discussed with DR Ferrara Subjective Subjective Patient reports: no new complaints, tolerating liquids well, tolerating a regular diet and afebrile; denies shortness of breath Interval history since last seen: denies any chest pain, reports feeling at baseline Exam Const General: cooperative and no acute distress Nutritional Appearance: thin Orientation: alert, oriented to person and oriented to place [facility] Head: normocephalic and atraumatic Neck Neck: full ROM and no JVD Resp Effort & Inspection: normal respiratory effort Auscultation: clear to auscultation bilaterally Cardio Rate: regular rate Rhythm: regular rhythm Heart Sounds: S1 normal and S2 normal GI Palpation: soft and nontender Skin General skin exam: no rashes or lesions noted Neuro General: no focal motor deficits Speech: speech normal Extrem General: no pedal edema and no calf tenderness Objective Last Vital Signs Temp 36.7 C 06/15/23 11:20 Pulse 68 06/15/23 11:20 Resp 20 06/15/23 11:20 BP 112/66 06/15/23 11:20 Pulse Ox 98 06/15/23 11:20 Laboratory Results - last 24 hr 06/14/23 06/14/23 06/14/23 15:11 15:11 15:11 WBC RBC Hgb Hct MCV MCH MCHC RDW Plt Count MPV Immature Gran % Neutrophils % Lymphocytes % Monocytes % Eosinophils % Basophils % Nucleated RBC % Absolute Neutrophils Absolute Lymphocytes Absolute Monocytes Absolute Eosinophils Absolute Basophils APTT VBG pH 7.42 H VBG pCO2 43 VBG pO2 28 VBG HCO3 27 VBG Total CO2 25 VBG O2 Saturation 53 VBG Base Excess 3 VBG Lactate Sodium 133 L Potassium 3.7 Chloride 97 L Carbon Dioxide 26.9 Anion Gap 9.1 BUN 15 Creatinine 0.9 Est GFR (CKD-EPI 2020) 88.51 Glucose 126 H Calcium 9.8 Total Bilirubin 0.9 AST 15 ALT 18 Alkaline Phosphatase 89 Troponin I < 50 Total Protein 7.6 Albumin 4.2 TSH 1.52 Urine Color Urine Clarity Urine pH Ur Specific [place] Urine Protein Urine Ketones Urine Blood Urine Nitrite Urine Bilirubin Urine Urobilinogen Ur Leukocyte Esterase Urine RBC Urine WBC Ur Epithelial Cells Urine Crystals Urine Bacteria Urine Casts Urine Mucus Ur Culture Indicated? Urine Glucose COVID-19 Source SARS-CoV-2 (PCR) Influenza Type A (PCR) Influenza Type B (PCR) RSV (PCR) 06/14/23 06/14/23 06/14/23 15:11 15:11 15:18 WBC 11.11 H RBC 4.25 L Hgb 13.0 L Hct 37.3 L MCV 88 MCH 30.6 MCHC 34.9 RDW 12.3 Plt Count 192 MPV 9.3 Immature Gran % 0.8 Neutrophils % 84.9 Lymphocytes % 3.2 Monocytes % 10.5 Eosinophils % 0.3 Basophils % 0.3 Nucleated RBC % 0.0 Absolute Neutrophils 9.43 H Absolute Lymphocytes 0.36 L Absolute Monocytes 1.17 H Absolute Eosinophils 0.03 Absolute Basophils 0.03 APTT VBG pH VBG pCO2 VBG pO2 VBG HCO3 VBG Total CO2 VBG O2 Saturation VBG Base Excess VBG Lactate 1.1 Sodium Potassium Chloride Carbon Dioxide Anion Gap BUN Creatinine Est GFR (CKD-EPI 2020) Glucose Calcium Total Bilirubin AST ALT Alkaline Phosphatase Troponin I Total Protein Albumin TSH Urine Color Urine Clarity Urine pH Ur Specific [place] Urine Protein Urine Ketones Urine Blood Urine Nitrite Urine Bilirubin Urine Urobilinogen Ur Leukocyte Esterase Urine RBC Urine WBC Ur Epithelial Cells Urine Crystals Urine Bacteria Urine Casts Urine Mucus Ur Culture Indicated? Urine Glucose COVID-19 Source NASOPHARYNX SARS-CoV-2 (PCR) Negative Influenza Type A (PCR) Negative Influenza Type B (PCR) Negative RSV (PCR) Negative 06/14/23 06/14/23 06/14/23 16:08 16:59 21:57 WBC RBC Hgb Hct MCV MCH MCHC RDW Plt Count MPV Immature Gran % Neutrophils % Lymphocytes % Monocytes % Eosinophils % Basophils % Nucleated RBC % Absolute Neutrophils Absolute Lymphocytes Absolute Monocytes Absolute Eosinophils Absolute Basophils APTT VBG pH VBG pCO2 VBG pO2 VBG HCO3 VBG Total CO2 VBG O2 Saturation VBG Base Excess VBG Lactate Sodium Potassium Chloride Carbon Dioxide Anion Gap BUN Creatinine Est GFR (CKD-EPI 2020) Glucose Calcium Total Bilirubin AST ALT Alkaline Phosphatase Troponin I 57 345 H* Total Protein Albumin TSH Urine Color Yellow Urine Clarity Clear Urine pH 7.0 Ur Specific [place] 1.020 Urine Protein Trace H Urine Ketones 40 H Urine Blood Small H Urine Nitrite Negative Urine Bilirubin Negative Urine Urobilinogen 1.0 H Ur Leukocyte Esterase Negative Urine RBC 5-10 H Urine WBC 0-2 Ur Epithelial Cells Rare Urine Crystals Negative Urine Bacteria Rare Urine Casts Negative Urine Mucus Negative Ur Culture Indicated? No Urine Glucose Negative COVID-19 Source SARS-CoV-2 (PCR) Influenza Type A (PCR) Influenza Type B (PCR) RSV (PCR) 06/15/23 06/15/23 06/15/23 05:00 05:00 05:00 WBC 7.48 RBC 4.41 Hgb 13.3 L Hct 38.3 L MCV 87 MCH 30.2 MCHC 34.7 RDW 12.3 Plt Count 184 MPV 9.2 Immature Gran % 0.5 Neutrophils % 75.9 Lymphocytes % 9.1 Monocytes % 13.1 Eosinophils % 1.1 Basophils % 0.3 Nucleated RBC % 0.0 Absolute Neutrophils 5.68 Absolute Lymphocytes 0.68 L Absolute Monocytes 0.98 H Absolute Eosinophils 0.08 Absolute Basophils 0.02 APTT VBG pH VBG pCO2 VBG pO2 VBG HCO3 VBG Total CO2 VBG O2 Saturation VBG Base Excess VBG Lactate Sodium 137 Potassium 3.5 Chloride 102 Carbon Dioxide 24.7 Anion Gap 10.3 BUN 11 Creatinine 0.8 Est GFR (CKD-EPI 2020) 91.72 Glucose 102 Calcium 9.7 Total Bilirubin AST ALT Alkaline Phosphatase Troponin I 492 H* Total Protein Albumin TSH Urine Color Urine Clarity Urine pH Ur Specific [place] Urine Protein Urine Ketones Urine Blood Urine Nitrite Urine Bilirubin Urine Urobilinogen Ur Leukocyte Esterase Urine RBC Urine WBC Ur Epithelial Cells Urine Crystals Urine Bacteria Urine Casts Urine Mucus Ur Culture Indicated? Urine Glucose COVID-19 Source SARS-CoV-2 (PCR) Influenza Type A (PCR) Influenza Type B (PCR) RSV (PCR) 06/15/23 06/15/23 06/15/23 05:00 09:20 11:45 WBC RBC Hgb Hct MCV MCH MCHC RDW Plt Count MPV Immature Gran % Neutrophils % Lymphocytes % Monocytes % Eosinophils % Basophils % Nucleated RBC % Absolute Neutrophils Absolute Lymphocytes Absolute Monocytes Absolute Eosinophils Absolute Basophils APTT 56.6 H 47.2 H VBG pH VBG pCO2 VBG pO2 VBG HCO3 VBG Total CO2 VBG O2 Saturation VBG Base Excess VBG Lactate Sodium Potassium Chloride Carbon Dioxide Anion Gap BUN Creatinine Est GFR (CKD-EPI 2020) Glucose Calcium Total Bilirubin AST ALT Alkaline Phosphatase Troponin I 490 H* Total Protein Albumin TSH Urine Color Urine Clarity Urine pH Ur Specific [place] Urine Protein Urine Ketones Urine Blood Urine Nitrite Urine Bilirubin Urine Urobilinogen Ur Leukocyte Esterase Urine RBC Urine WBC Ur Epithelial Cells Urine Crystals Urine Bacteria Urine Casts Urine Mucus Ur Culture Indicated? Urine Glucose COVID-19 Source SARS-CoV-2 (PCR) Influenza Type A (PCR) Influenza Type B (PCR) RSV (PCR) Time Spent with Patient Time Spent with Patient: 25-34 minutes Time was spent: preparing to see the patient(eg.review tests), obtaining and/or reviewing separately otained hiistory, ordering medications,tests, procedures, indepentently interpreting results and counseling the patient
--- NOTE | 2023-06-15 14:35 | CHAPLAIN ---
Mauricio was resting in bed when I visited. He said family members area aware that he's her. His daughters visited this morning and will return again this evening. Mauricio was friendly and open to conversation. I explained my role and offered support.
[2023-06-15 15:05] VITALS: BP 106/66; PULSE 71; RESP 18; TEMP 37.2; O2SAT 96
[2023-06-15 19:26] LABS: PTT Activated 57.7 sec (23.6-32.8)
[2023-06-15 19:32] VITALS: BP 133/71; PULSE 75; RESP 18; TEMP 36.2; O2SAT 95
[2023-06-15] MEDS: Mirtazapine 15 MG TAB 7.5 MG PO (20:02)
[2023-06-15] MEDS: Atorvastatin 40 MG TAB 80 MG PO (20:02)
[2023-06-15] MEDS: Tamsulosin 0.4 MG CAPCR 0.8 MG PO (20:02)
[2023-06-15 23:12] VITALS: BP 128/70; PULSE 65; RESP 16; TEMP 36.4; O2SAT 98
[2023-06-16] MEDS: Heparin in 0.45% NaCl 25,000 UNIT/250 ML BAG 8.5 UNIT IV (01:04)
[2023-06-16 03:20] VITALS: BP 116/68; PULSE 69; RESP 18; TEMP 36.1; O2SAT 98
[2023-06-16 06:38] LABS: HGB 13.3 g/dL (13.5-17.5); MCH 29.8 pg (27.0-33.0); MCHC 34.1 % (32.0-36.0); MCV 87 fL (80-95); MPV 9.2 fL (8.0-11.0); Platelet Count 208 10^3/uL (130-400); RBC 4.46 10^6/uL (4.36-5.78); RDW 12.1 % (11.8-14.1); WBC 5.86 10^3/uL (4.4-10.8)
[2023-06-16 06:50] LABS: PTT Activated 56.8 sec (23.6-32.8)
[2023-06-16 07:45] VITALS: BP 102/60; PULSE 72; RESP 22; TEMP 36.3; O2SAT 95
[2023-06-16] MEDS: Metoprolol CR 50 MG TABCR PO (08:50)
[2023-06-16] MEDS: Clopidogrel 75 MG TAB PO (08:50)
[2023-06-16] MEDS: hydroCHLOROthiazide 12.5 MG TAB PO (08:50)
[2023-06-16] MEDS: Aspirin E.C. 325 MG TABEC PO (08:50)
[2023-06-16] MEDS: Cyanocobalamin 500 MCG TAB 1000 MCG PO (08:50)
--- NOTE | 2023-06-16 10:57 | CCONE_ITS ---
Date of service: 06/16/23 Time of Service: 10:57 Assessment and Plan Assessment and plan (1) NSTEMI (non-ST elevated myocardial infarction): Status: Acute Assessment and plan: Patient had enzyme evidence of myocardial necrosis, as well as transient EKG changes. He may or may not have had chest pain (he denied it to me). He has known coronary disease, remote event ,possible stent. At this point I would recommend discontinuation of heparin. He should be observed with increased activity for potential angina. Troponin should be documented to be decreasing. I would not recommend an aggressive invasive approach at this time but I think a myocardial perfusion imaging study with pharmacologic stress would be reasonable, possibly next week as an outpatient if he is otherwise stable. Clearly if the patient should have recurrent symptoms then referral for cardiac catheterization should be considered (2) Syncope: Status: Chronic Assessment and plan: Patient fell, possible syncope. Monitoring has not disclosed any significant dysrhythmia (3) Tongue cancer: Status: Acute Assessment and plan: Followed by oncology at [facility] History of Present Illness History of Present Illness Chief Complaint: Non-ST elevation myocardial infarction Narrative: This is a 78-year-old man who was admitted to the hospital 2 days ago after he fell at home. He is not a very good historian but says he was lightheaded, fell and hit his head on the table and may have transiently lost consciousness. He called his daughter and was brought to the emergency room. In the ER he had diffuse ST-T abnormalities noted on his electrocardiogram. His initial troponin was negative, subsequently moderately elevated in the 400 range. EKG was repeated, showed improvement in the ST changes. He may have had chest discomfort according to notes in the chart. He has a history of coronary artery disease in approximately 2006; records are not available.. He had an echocardiogram done which shows preserved left ventricular systolic function, no wall motion abnormalities, no significant valvular disease He has squamous cell head and neck cancer, status post resection, and is followed by oncology through [facility]. Patient is sitting in the chair, no acute distress. He denies experiencing any chest discomfort or difficulty breathing. Otherwise his history is that he was lightheaded and fell. Currently he is on heparin, Plavix was added to his baseline aspirin Review of Systems Cardiovascular Cardiovascular: Reports as per HPI, Denies chest pain, Reports lightheadedness, Denies radiating jaw, neck or arm pain and Denies dyspnea Respiratory Respiratory: Denies dyspnea PFSH All Active Problems NSTEMI (non-ST elevated myocardial infarction) (Acute) Syncope (Chronic) Acute electrocardiogram changes (Acute) Neck mass (Acute) Impacted cerumen, bilateral (Acute) History of smoking (Acute) Urinary frequency (Acute) Tongue cancer (Acute) Tongue ulcer (Acute) Tongue sore (Acute) Imbalance (Acute) Memory loss (Acute) Carotid stenosis (Acute) B12 deficiency (Acute) Secondary polycythemia (Chronic) Macrocytosis (Chronic) Parkinsons disease (Chronic) Elevated MCV (Acute) Acute CVA (cerebrovascular accident) (Acute) Advance care planning (Acute) BPH (benign prostatic hyperplasia) (Chronic) History of intravascular stent placement (Chronic) ASCVD (arteriosclerotic cardiovascular disease) (Chronic) Cyst of kidney, acquired (Chronic) RIGHT; stent placed approx. 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 Heart disease Brother Diabetes Heart disease Grandfather No problems noted. Grandfather No problems noted. Grandmother No problems noted. Grandmother No problems noted. Sister No problems noted. Sister No problems noted. Sister No problems noted. Brother Neoplasm Brother Stroke Son No problems noted. Daughter No problems noted. Daughter No problems noted. Social History Smoking/Tobacco Use Status: Former Tobacco Use tobacco type: cigarettes and smokeless tobacco Quit Date: 09/05/06 Tobacco: How many years used: 25 Smokeless tobacco user: chewing tobacco Second Hand Exposure: Yes Counseling given: counseling >10 minutes Smoking risk assessment performed?: Yes Alcohol Intake: former Drug use: Never Substance use type: does not use Caregiver/Support person: No Household members: none Housing: house Do you need help understanding health information?: Often Pets and animals: Yes Pets and animals: cat(s) and dog(s) Sexually active: Yes Do you think of yourself as: straight/heterosexual Current gender identity: male What is your relationship status?: How often do you talk on the phone with friends or family?: three or more times per week How often do you get together with friends or relatives?: three or more times per week How often do you attend yarsanism or methodist services?: decline to answer Do you belong to any clubs or organized social groups?: no Panel score (0-1 are the most socially isolated patients): 2 What type of physical activity do you participate in: none Duration: 45-60 minutes/day Frequency: 1-2 times per week Rubia/Pentecostal: Yazidism Special rubia needs: No Seatbelt use: always Helmet use: Yes Helmet use: always Drive intox or ride w/intox recycling collections driver: No Do you feel safe at home: Yes Do you feel safe in your relationship?: Yes Exam Resp Auscultation: clear to auscultation bilaterally Cardio Other: Heart is regular there is a brief systolic ejection quality murmur Extrem Other: No peripheral edema Results Last Vital Signs Temp 36.3 C L 06/16/23 07:45 Pulse 72 06/16/23 07:45 Resp 22 06/16/23 07:45 BP 102/60 06/16/23 07:45 Pulse Ox 95 06/16/23 07:45 Labs 06/16/23 06:30 06/15/23 05:00 Labs: Laboratory Results - last 24 hr 06/15/23 06/15/23 06/16/23 11:45 19:00 01:02 WBC RBC Hgb Hct MCV MCH MCHC RDW Plt Count MPV APTT 47.2 H 57.7 H 56.8 H 06/16/23 06/16/23 01:07 06:30 WBC 5.86 RBC 4.46 Hgb 13.3 L Hct 39.0 L MCV 87 MCH 29.8 MCHC 34.1 RDW 12.1 Plt Count 208 MPV 9.2 APTT 53.0 H
[2023-06-16 11:34] VITALS: BP 105/67; PULSE 76; RESP 20; TEMP 36.9; O2SAT 100
--- NOTE | 2023-06-16 12:26 | DI.CT_ITS ---
Exam(s) CT HEAD WO EXAM: CT HEAD WO CLINICAL HISTORY: ams. TECHNIQUE: Imaging Protocol: Axial computed tomography images with coronal and sagittal reformatted images were created and reviewed COMPARISON: CT CT HEAD CERVICAL SPINE WO from 06/14/2023 FINDINGS: Ventricles and Extra axial spaces: Normal in size and morphology for the patient's age. Hemorrhage: None. Cerebral parenchyma: There are areas of decreased attenuation in the white matter most consistent wit h small vessel ischemic disease. Old lacunar infarcts are present. Midline shift: None. Brainstem/Cerebellum: Normal. Calvarium: Normal. Visualized Paranasal sinuses/Mastoids: Clear. Soft Tissues: Unremarkable. IMPRESSION: No acute intracranial process. RADIATION DOSE DELIVERED: Total DLP DATA REPOSITORY: All CT scans at this facility are submitted to the National Radiology Data Registry (NRDR) Dose Index Registry (DIR) with the [employer] (ACR). RADIATION OPTIMIZATION: All CT scans at this facility use at least one of these dose optimization te chniques: automated exposure control; mA and/or kV adjustment per patient size (includes targeted exa ms where dose is matched to clinical indication); or iterative reconstruction.
--- NOTE | 2023-06-16 12:32 | DI.RAD_ITS ---
Exam(s) XR CHEST 2V PA LATERAL EXAM: XR CHEST 2V PA LATERAL CLINICAL HISTORY: confusion TECHNIQUE: 2D digital imaging was performed of the chest. Two images were obtained. PA and lateral views were obtained. COMPARISON: CR RIGHT SHOULDER COMPLETE from 07/22/2015 FINDINGS: MEDIASTINUM: Normal. HEART: Normal. PULMONARY VASCULATURE: Normal. LUNGS: Clear. PLEURAL SPACE: No pleural effusion or pneumothorax. BONE:Within normal limits for the patient's age. OTHER FINDINGS:Normal. IMPRESSION: No acute pulmonary findings. DATA REPOSITORY: RADIATION DOSE DELIVERED:
[2023-06-16 13:13] LABS: Lab Add On Test DONE
[2023-06-16 13:44] LABS: Bilirubin Negative (Negative); Blood Negative (Negative); Clarity Clear (Clear); Glucose Negative (Negative); Ketones 15 mg/dL (Negative); Leukocyte Esterase Negative (Negative); Nitrite Negative (Negative); Specific Gravity 1.015 (1.005-1.025)
[2023-06-16 13:53] LABS: Troponin I 218 ng/L (<or=60)
[2023-06-16 15:25] VITALS: BP 119/69; PULSE 57; RESP 20; TEMP 37; O2SAT 98
--- NOTE | 2023-06-16 18:13 | W.PM.PROGNOT ---
Date of Service Date of service: 06/16/23 Time of Service: 18:13 Assessment and Plan Assessment and plan (1) NSTEMI (non-ST elevated myocardial infarction): Status: Acute Assessment and plan: troponin peaked at 492, no chest pain, remains hemodynamically stable continue heparin, plavix, asa, beta bob cardiology consult pending continue telemetry and close monitoring. (2) Acute electrocardiogram changes: Status: Acute Assessment and plan: positive troponins now flat, no chest pain with improved EKG st depressions. history of CAD s/p cardiac stent echo pending will place cardiology consult (3) Syncope: Status: Chronic Assessment and plan: no further episodes, continue on telemetry. orthostatic vitals. fall precautions PT consult when stable (4) BPH (benign prostatic hyperplasia): Status: Chronic Assessment and plan: continue tamsulosin monitor for urinary retention (5) Essential hypertension: Status: Chronic Assessment and plan: blood pressure stable, monitor and continue home medication. continue metropolol and hctz discussed with DR Ferrara Subjective Subjective Patient reports: no new complaints, feels better, tolerating liquids well, tolerating a regular diet and afebrile Interval history since last seen: denies chest pain, short term memory impairment with periods of confusion, but able to re-orient Exam Const General: cooperative and no acute distress Nutritional Appearance: thin Orientation: alert, oriented to person and oriented to place [facility] Head: normocephalic and atraumatic Neck Neck: full ROM and no JVD Resp Effort & Inspection: normal respiratory effort Auscultation: clear to auscultation bilaterally Cardio Rate: regular rate Rhythm: regular rhythm Heart Sounds: S1 normal and S2 normal GI Palpation: soft and nontender Skin General skin exam: no rashes or lesions noted Neuro General: no focal motor deficits Speech: speech normal Extrem General: no pedal edema and no calf tenderness Objective Last Vital Signs Temp 37 C 06/16/23 15:25 Pulse 57 L 06/16/23 15:25 Resp 20 06/16/23 15:25 BP 119/69 06/16/23 15:25 Pulse Ox 98 06/16/23 15:25 Laboratory Results - last 24 hr 06/15/23 06/16/23 06/16/23 19:00 01:02 01:07 WBC RBC Hgb Hct MCV MCH MCHC RDW Plt Count MPV APTT 57.7 H 56.8 H 53.0 H Troponin I Urine Color Urine Clarity Urine pH Ur Specific [place] Urine Protein Urine Ketones Urine Blood Urine Nitrite Urine Bilirubin Urine Urobilinogen Ur Leukocyte Esterase Urine Glucose Add-On Test Request 06/16/23 06/16/23 06/16/23 06:30 13:15 13:30 WBC 5.86 RBC 4.46 Hgb 13.3 L Hct 39.0 L MCV 87 MCH 29.8 MCHC 34.1 RDW 12.1 Plt Count 208 MPV 9.2 APTT Troponin I 218 H* Urine Color Yellow Urine Clarity Clear Urine pH 6.0 Ur Specific [place] 1.015 Urine Protein Negative Urine Ketones 15 H Urine Blood Negative Urine Nitrite Negative Urine Bilirubin Negative Urine Urobilinogen 4.0 H Ur Leukocyte Esterase Negative Urine Glucose Negative Add-On Test Request 06/16/23 Unknown WBC RBC Hgb Hct MCV MCH MCHC RDW Plt Count MPV APTT Troponin I Urine Color Urine Clarity Urine pH Ur Specific [place] Urine Protein Urine Ketones Urine Blood Urine Nitrite Urine Bilirubin Urine Urobilinogen Ur Leukocyte Esterase Urine Glucose Add-On Test Request DONE Time Spent with Patient Time Spent with Patient: 25-34 minutes Time was spent: preparing to see the patient(eg.review tests), obtaining and/or reviewing separately otained hiistory, ordering medications,tests, procedures, referring, communicating with other health director of career services, indepentently interpreting results and counseling the patient
[2023-06-16] MEDS: Atorvastatin 40 MG TAB 80 MG PO (19:59)
[2023-06-16 20:11] VITALS: BP 121/72; PULSE 70; RESP 16; TEMP 36.3; O2SAT 98
[2023-06-16] MEDS: Tamsulosin 0.4 MG CAPCR 0.8 MG PO (21:54)
[2023-06-16] MEDS: Mirtazapine 15 MG TAB 7.5 MG PO (21:55)
[2023-06-16 22:50] VITALS: BP 137/79; PULSE 79; RESP 16; TEMP 36.5; O2SAT 99
[2023-06-17 02:41] VITALS: BP 130/66; PULSE 80; RESP 17; TEMP 36.3; O2SAT 100
[2023-06-17 07:23] VITALS: BP 121/72; PULSE 87; RESP 19; TEMP 37.1; O2SAT 97
[2023-06-17] MEDS: Clopidogrel 75 MG TAB PO (08:48)
[2023-06-17] MEDS: hydroCHLOROthiazide 12.5 MG TAB PO (08:48)
[2023-06-17] MEDS: HYDROcodone 5/Acetaminophen 325 TAB PO (08:48)
[2023-06-17] MEDS: Aspirin E.C. 325 MG TABEC PO (08:48)
[2023-06-17] MEDS: Metoprolol CR 50 MG TABCR PO (08:49)
[2023-06-17] MEDS: Cyanocobalamin 500 MCG TAB 1000 MCG PO (08:49)
--- NOTE | 2023-06-17 09:15 | PT.INIE ---
PT Notes Visit Reasons: Syncope Inpatient Physical Therapy Evaluation Date: 06/17/23 Referring Doctor: Lawanda Christina PT Orders: PT CONSULT: limited ability to ambulate Precautions: fall, standard Patient Profile/Admitting Diagnosis: 78-year-old male with a past medical history of previous mouth cancer, with subsequent surgical excision, coronary artery disease with stents, Parkinson's disease, some mild baseline confusion, who presented to ER for evaluation of fall. Diagnosed with NSTEMI and admitted for medical care. PT consult requested for assessment of mobility. Social History/Home Situation: Patient lives alone in a private home. Utilizes FWW at baseline. Is , with his currently residing at the [facility]. He states that he visits her every day. States that he was receiving HH, although unsure if this included PT. Equipment Owned/DME: FWW Subjective: Mauricio states that his legs feel weak and wobbly. He states that he was recently diagnosed with Parkinson's, but has not been started on medication at this point. He reports a worsening tremor. Admits to poor balance, but denies falls prior to the one that brought him to the ER this week. Objective: General Observation: Sitting at edge of bed at initiation of session. No lines. Mental Status: Alert, pleasant and cooperative throughout session. Pain: denies Vital Signs: on telemetry ROM: Right Upper Extremity: WFL Left Upper Extremity: WFL Right Lower Extremity: WFL Left Lower Extremity: WFL Strength: Right Upper Extremity: Shoulder flexion 4/5. Biceps 4/5. Triceps 3+/5. Breakfast And Room Attendant weak, but equal. Left Upper Extremity: Shoulder flexion 4/5. Biceps 4/5. Triceps 3+/5. Breakfast And Room Attendant weak, but equal. Right Lower Extremity: Hip flexion 4/5. Quads 4-/5. HS 4/5. Ankle 5/5. Left Lower Extremity: Hip flexion 4/5. Quads 4-/5. HS 4/5. Ankle 5/5. Bed Mobility/Transfers: reports independence with bed mobility sit-stand: CGA with consistent cues for hand position and technique stand-sit: CGA with consistent cues for hand position and technique Gait: Ambulates 100' with FWW, CGA. Demonstrates ataxic gait, with poor right foot placement throughout. Requires mod A during turning. Balance: Static Sitting: normal Dynamic Sitting: normal Static Standing: poor Dynamic Standing: poor 4-Position Balance Test: 0/4 Small BEN: unable without external support Partial Tandem: [] seconds Full Tandem: [] seconds Single Leg Stance: [] seconds Special Tests: Mobility Limitations Standardized Measure [facility] AM-PAC 6 clicks Basic Mobility Inpatient Short Form: Raw Score: 20 Standardized Score: 36% Informed Consent/Education: Patient instructed in purpose of PT consult and plan of care. Treatment: Initial Evaluation (61218) Neuromuscular Re-education (83140): For balance retraining performed small BEN standing x 30 seconds, 3 reps, requiring mod A due to posteriorly directed drift standing for meds with nursing, min A at the trunk, with increasing posterior drift static standing with light UE support, 1 minute seated november for trunk control Assessment: Patient is a 78 year old male referred to physical therapy services with the diagnosis of limited ability to ambulate. Patient presents with ataxia and balance impairment. During ambulation, he reports that gait is consistent with his baseline, however he does require assist for all ambulation due to ataxia, particularly during turning, where he requires mod A. His goal is to return home with services, and will continue monitoring his mobility as we progress balance retraining and LE strengthening. May need to consider SNF if continuing to require assistance. He currently demonstrates the following impairment level findings: 1. decreased balance 2. ataxia 3. decreased LE strength Impairments are contributing to the following functional limitations: 1. unable to independently transfer 2. unable to stand without UE support 3. unable to ambulate household distances independently Patient is assessed as Moderate 15349 complexity based on the following: History: Patient is a 78 year old male with recent NSTEMI, presenting with balance and gait impairments. Complicating factors include living alone and extensive medical history. Examination: functional limitations as noted above Presentation: evolving Decision Making: moderate complexity Goals: Goals X1 week 1. Supine-Sit : independent 2. Sit-Supine : independent 3. Sit-Stand : independent 4. Stand-Sit : independent 5. Bed-Chair : supervision with FWW 6. Chair-Bed : supervision with FWW 7. Gait : supervision with FWW x 50' Plan of Care/Treatment Plan: 1-2x/day, 7 days/week x 1 week. Plan of care has been reviewed with the REPRODUCTION PRODUCTION MANAGER providing the service under Physical Therapy direction. Initiate Physical Therapy intervention for strengthening, bed mobility, transfers, gait, stairs, balance training, use of assistive device. DISCHARGE RECOMMENDATIONS: Home with services ( PT) vs SNF. Will continue monitoring safety and mobility for appropriate discharge planning. TREATMENT CODE/TIME: [id number] (77294, 64278) Mirna Roman, PT, DPT [facility] All Active Problems NSTEMI (non-ST elevated myocardial infarction) (Acute) Syncope (Chronic) Acute electrocardiogram changes (Acute) Neck mass (Acute) Impacted cerumen, bilateral (Acute) History of smoking (Acute) Urinary frequency (Acute) Tongue cancer (Acute) Tongue ulcer (Acute) Tongue sore (Acute) Imbalance (Acute) Memory loss (Acute) Carotid stenosis (Acute) B12 deficiency (Acute) Secondary polycythemia (Chronic) Macrocytosis (Chronic) Parkinsons disease (Chronic) Elevated MCV (Acute) Acute CVA (cerebrovascular accident) (Acute) Advance care planning (Acute) BPH (benign prostatic hyperplasia) (Chronic) History of intravascular stent placement (Chronic) ASCVD (arteriosclerotic cardiovascular disease) (Chronic) Cyst of kidney, acquired (Chronic) RIGHT; stent placed approx. 2 1/2 years ago Diverticulosis of colon without diverticulitis (Chronic) SIGMOID COLECTOMY; unable to have another colonoscopy due to cost Hyperlipidemia (Chronic) Lumbar disc prolapse with compression radiculopathy (Chronic 08/03/07) 02/06 MRI: L5/S1 DISC HERNIATION Polycythemia vera (Chronic) secondary to smoking Right shoulder pain (Chronic 07/22/15) Essential hypertension (Chronic 06/27/13) Chronic pain disorder (Chronic) CONTRACT 01/19/16 06/06/17 CONTROLLED SUBSTANCE AGREEMENT~RENEWED Medical History Smoker History of alcoholism H/O sigmoidoscopy Smoker Herpes zoster 06/04/05 OD Alcohol abuse 10/03/08 quit 2004 Surgical History S/P partial glossectomy 09/22/2021 History of intravascular stent placement Stent placement Sigmoidoscopy (~10/1998)
--- NOTE | 2023-06-17 14:12 | DSE_ITS ---
Date of service: 06/17/23 Time of Service: 14:12 DS: Diagnosis Discharge Diagnosis (1) NSTEMI (non-ST elevated myocardial infarction): Status: Acute (2) Acute electrocardiogram changes: Status: Acute (3) Syncope: Status: Chronic (4) BPH (benign prostatic hyperplasia): Status: Chronic (5) Essential hypertension: Status: Chronic Discharge Plan Disposition Patient Disposition: Home W/Home Health Services Condition: Stable Discharge Details Reason For Visit: Syncope Admit Date/Time: 06/15/23 18:40 Admit Provider: Dre Ferrara Attending Provider: Dre Ferrara Primary Care Provider: Aysha Odonnell Home Meds and New Rx's Prescriptions: New atorvastatin 40 mg Tablet 80 mg PO QPM Qty: 60 0RF clopidogrel 75 mg Tablet 75 mg PO DAILY Qty: 30 0RF aspirin 81 mg capsule 81 mg PO DAILY Qty: 30 0RF Continued nitroglycerin [Nitrostat] 0.4 mg tablet, sublingual 0.4 mg Sublingual PRN Qty: 25 3RF diphth,pertus(acell),tetanus 2.5-8-5 Lf-mcg-Lf/0.5mL syringe 0.5 ml IM ONCE Qty: 0.5 0RF Rx Instructions: as a single dose mirtazapine 7.5 mg tablet 7.5 mg PO QHS Qty: 90 4RF hydrocodone-acetaminophen 5-325 mg tablet 2 tab PO TID MDD 6 PRN (Reason: pain) Qty: 42 0RF meloxicam 15 mg tablet 15 mg PO DAILY PRN (Reason: pain (scale score 4-6)) Qty: 90 5RF tamsulosin 0.4 mg capsule 0.8 mg PO QHS Qty: 180 3RF hydrochlorothiazide 12.5 mg tablet 12.5 mg PO QAM Qty: 90 4RF metoprolol succinate 50 mg tablet extended release 24 hr 50 mg PO DAILY Qty: 90 4RF cyanocobalamin (vitamin B-12) 1,000 mcg capsule 1,000 mcg PO DAILY Qty: 30 0RF Discontinued aspirin [Ecotrin] 325 MG tablet,delayed release (DR/EC) 325 mg PO DAILY Discharge Instructions Instructions: Heart Attack (DC), Fall Prevention for Older Adults (DC) Referrals: Aysha Odonnell MD, DC [Primary Care Provider] - Farrah Lunsford MD [ [facility] STAFF PHYSICIAN] - Activity:: Activity as Tolerated Equipment/Supplies:: No Equipment Needed Diet:: As Tolerated Discharge Orders Discharge Orders: Discharge Order (Routine); Ordered 06/17/23 Ordered By: Lawanda Christina Exam Const General: cooperative and no acute distress Nutritional Appearance: thin Orientation: alert, oriented to person and oriented to place HENTX Head: normocephalic and atraumatic Neck Neck: full ROM and no JVD Resp Effort & Inspection: normal respiratory effort Auscultation: clear to auscultation bilaterally Cardio Rate: regular rate Rhythm: regular rhythm Heart Sounds: S1 normal and S2 normal GI Palpation: soft and nontender Skin General skin exam: no rashes or lesions noted Neuro General: no focal motor deficits Speech: speech normal Extrem General: no pedal edema and no calf tenderness DS: Data Vitals/I&O Vitals and I&O: Vital Signs Temperature 37.1 C 06/17/23 07:23 Temperature Source Tympanic 06/17/23 07:23 Pulse 87 06/17/23 07:23 Pulse Rhythm Regular 06/17/23 02:44 Pulse 78 06/14/23 16:16 Respiratory Rate 19 06/17/23 07:23 Respiratory Effort Normal 06/17/23 02:44 Respiratory Depth Normal 06/17/23 02:44 Respiratory Pattern Normal 06/17/23 02:44 Blood Pressure 121/72 06/17/23 07:23 Blood Pressure Mean 80 06/14/23 16:16 Blood Pressure Position Sitting 06/14/23 14:43 Pulse Oximetry 97 06/17/23 07:23 Oxygen Delivery Method Room Air 06/17/23 07:23 Oxygen Flow Rate 0 06/17/23 07:23 Pain Level 0 06/17/23 07:23 Comment pt in bed, with eyes closed. Pt opens eyes to name being called. Voices no complaints. Heparin infusing to R AC as ordered. IV site patent w/no s/s of erythema or edema present. Call light within reach, bed in low position. next Carley: 11 AM 06/15/23 07:15 Intake & Output 06/16/23 06/17/23 06/17/23 23:59 11:59 23:59 Intake Total 79.333 / 133.875 Output Total 200 / 600 250 / 250 Balance -120.667 / -466.125 -250 / -250 Intake: IV 79.333 / 133.875 Output: Urine 200 / 600 250 / 250 Other: Urine Color Straw Yellow Urine Appearance Clear Clear Urine Odor Normal None Comment Pt voided in toilet patient wet and put new one on. Voiding Methods Bedside Commode Toilet Data Completed and Pending Labs on day of discharge: Labs from last 24 hours 06/16/23 06:30 APTT 56.8 H PFSH All Active Problems NSTEMI (non-ST elevated myocardial infarction) (Acute) Syncope (Chronic) Acute electrocardiogram changes (Acute) Neck mass (Acute) Impacted cerumen, bilateral (Acute) History of smoking (Acute) Urinary frequency (Acute) Tongue cancer (Acute) Tongue ulcer (Acute) Tongue sore (Acute) Imbalance (Acute) Memory loss (Acute) Carotid stenosis (Acute) B12 deficiency (Acute) Secondary polycythemia (Chronic) Macrocytosis (Chronic) Parkinsons disease (Chronic) Elevated MCV (Acute) Acute CVA (cerebrovascular accident) (Acute) Advance care planning (Acute) BPH (benign prostatic hyperplasia) (Chronic) History of intravascular stent placement (Chronic) ASCVD (arteriosclerotic cardiovascular disease) (Chronic) Cyst of kidney, acquired (Chronic) RIGHT; stent placed approx. 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 Heart disease Brother Diabetes Heart disease Grandfather No problems noted. Grandfather No problems noted. Grandmother No problems noted. Grandmother No problems noted. Sister No problems noted. Sister No problems noted. Sister No problems noted. Brother Neoplasm Brother Stroke Son No problems noted. Daughter No problems noted. Daughter No problems noted. Social History Smoking/Tobacco Use Status: Former Tobacco Use tobacco type: cigarettes and smokeless tobacco Quit Date: 09/05/06 Tobacco: How many years used: 25 Smokeless tobacco user: chewing tobacco Second Hand Exposure: Yes Counseling given: counseling >10 minutes Smoking risk assessment performed?: Yes Alcohol Intake: former Drug use: Never Substance use type: does not use Caregiver/Support person: No Household members: none Housing: house Do you need help understanding health information?: Often Pets and animals: Yes Pets and animals: cat(s) and dog(s) Sexually active: Yes Do you think of yourself as: straight/heterosexual Current gender identity: male What is your relationship status?: How often do you talk on the phone with friends or family?: three or more times per week How often do you get together with friends or relatives?: three or more times per week How often do you attend anglican or mormon services?: decline to answer Do you belong to any clubs or organized social groups?: no Panel score (0-1 are the most socially isolated patients): 2 What type of physical activity do you participate in: none Duration: 45-60 minutes/day Frequency: 1-2 times per week Rubia/Catholic: Religious Special rubia needs: No Seatbelt use: always Helmet use: Yes Helmet use: always Drive intox or ride w/intox dolly driver: No Do you feel safe at home: Yes Do you feel safe in your relationship?: Yes
--- NOTE | 2023-06-17 14:19 | PDOC.HHF2F_ITS ---
Home Health Referral Home Health Orders Clinical synopsis of why skilled professionals are needed: cognitive impairment, falls at home Medical diagnosis necessitation home health referral: NSTEMI, syncope Registered Nurse: Check all that apply Instruct on new or changed medication(s)/assess compliance: Ordered Assess for exacerbation of medical condition, instruct patient/caregivers on si gns and symptoms to report for early detection: Ordered Physical Therapist: Check all that apply Increase strength & endurance for safe mobility at home: Ordered To design/establish home maintenance program: Ordered Fall reduction therapy program for patient with history of frequent falls: Ordered Home safety evaluation and teaching/gait training including stair management (if applicable): Ordered Occupational Therapist: Evaluate and treat for patient unable to perform ADL/IADL/self-care: Ordered Upper extremity strengthening, range and motion: Ordered Spreader Box Operator: Assist with community resources: Ordered Assist with intermediate manager care planning: Ordered Home Bound Status Requires the aid of supportive device (check all that apply): Walker Encounter Date and Reason: I certify that a FTF encounter for this patient was performed on June 17, 2023 and that such encounter was related to the primary reason the patient requires home health services. The encounter was conducted in the following manner: * By me as the certifying physician, CANOE INSPECTOR FINAL, PA or * By an inpatient physician, CANOE INSPECTOR FINAL or PA during an inpatient stay who communicated findings to me, Certification And Authentication I certify that I composed the above information based on my clinical judgment relating to this patient's medical condition and, if applicable, clinical findings communicated to me by the NPP or inpatient physician who performed the FTF encounter. Name of Provider that will be monitoring home health services: Aysha Odonnell
--- NOTE | 2023-06-17 14:29 | PT.INNT ---
Date of service: 06/17/23 Time of Service: 14:29 PT Notes Visit Reasons: Syncope Patient refused, stating he already walked too many laps, his legs are too weak and tired, and it's abuse making him walk around and around and not letting him leave. Per RN, patient wouldn't stay in his room, so she redirected him. Family and RN aware of patient's refusal of therapy.
--- NOTE | 2023-06-17 14:36 | W.PM.PROGNOT ---
Date of Service Date of service: 06/17/23 Time of Service: 14:36 Assessment and Plan Assessment and plan (1) NSTEMI (non-ST elevated myocardial infarction): Status: Acute Assessment and plan: troponin peaked at 492, no chest pain, remains hemodynamically stable cardiology consulted, heparin discontinued, recommends outpatient stress test, if further chest pain possible cath will discharge home on plavix and statin, already on bb and asa echo shows EF 60% with no obvious WMA, aortic sclerosis without significant stenosis. (2) Acute electrocardiogram changes: Status: Acute Assessment and plan: positive troponins now flat, no chest pain with improved EKG st depressions. history of CAD s/p cardiac stent see above (3) Syncope: Status: Chronic Assessment and plan: no further episodes, continue on telemetry. orthostatic vitals. fall precautions PT consulted (4) BPH (benign prostatic hyperplasia): Status: Chronic Assessment and plan: continue tamsulosin no evidence of urinary retention (5) Essential hypertension: Status: Chronic Assessment and plan: blood pressure stable, monitor and continue home medication. continue metropolol and hctz (6) Delirium: Status: Acute Assessment and plan: multifactoral, including acute hospitalization, lack of sleep, received narcotic this am, likely underlying cognitive impairment. will add melatonin and seroquel. safety precautions (7) Discharge planning issues: Status: Acute Assessment and plan: plan to discharge to home with home health services discussed with Dr Veliz Subjective Subjective Interval history since last seen: remains with periods of confusion Exam Const General: cooperative and no acute distress Nutritional Appearance: thin Orientation: alert, oriented to person, oriented to place and confused HENNY Head: normocephalic and atraumatic Neck Neck: full ROM and no JVD Resp Effort & Inspection: normal respiratory effort Auscultation: clear to auscultation bilaterally Cardio Rate: regular rate Rhythm: regular rhythm Heart Sounds: S1 normal and S2 normal GI Palpation: soft and nontender Skin General skin exam: no rashes or lesions noted Neuro General: no focal motor deficits Speech: speech normal Extrem General: no pedal edema and no calf tenderness Objective Last Vital Signs Temp 37.1 C 06/17/23 07:23 Pulse 87 06/17/23 07:23 Resp 19 06/17/23 07:23 BP 121/72 06/17/23 07:23 Pulse Ox 97 06/17/23 07:23 Laboratory Results - last 24 hr 06/16/23 06:30 APTT 56.8 H Time Spent with Patient Time Spent with Patient: 35-49 minutes Time was spent: preparing to see the patient(eg.review tests), obtaining and/or reviewing separately otained hiistory, ordering medications,tests, procedures, indepentently interpreting results, counseling the patient (discussion with family, ) and care coordination
--- NOTE | 2023-06-17 15:30 | CMPROGNOTE_ITS ---
Date of service: 06/17/23 Time of Service: 15:30 Care Management Progress Note Progress Note Text Progress Note Text: S/O:Mauricio was scheduled to discharge home today, however he experienced an increase in confusion and was not deemed safe for discharge. Mickey has not slept well while in the hospital and last night only napped for about 20 minutes. He will be observed overnight and likely discharge in the morning. Mickey was pleasant and engaged well with CM, but he was obviously confused. His daughter Urmila was visiting and stated she felt he was getting more confused each day. FRANCESCA Webber, met with the family and explained that this is not uncommon with the elderly. She has ordered Seroquel for bedtime snd he will be observed overnight. A: Mauricio is a 78 year old man admitted on 06/15/23 with syncope P:Mauricio will likely return home with new home health services for PT, OT and possibly nursing and COMMUNICATION SPEC. He will follow up with his community providers and plan of care and transport with family. CM will follow and assess for discharge planning issues and concerns.
[2023-06-17] MEDS: QUEtiapine 25 MG TAB 12.5 MG PO (17:43)
[2023-06-17 19:10] VITALS: BP 98/60; PULSE 66; RESP 16; TEMP 36.6; O2SAT 97
[2023-06-17 23:20] VITALS: BP 110/60; PULSE 64; RESP 16; TEMP 36.5; O2SAT 96
[2023-06-18 03:21] VITALS: BP 108/62; PULSE 64; RESP 16; TEMP 36.4; O2SAT 95
[2023-06-18 05:50] VITALS: BP 113/64; BP 64/42; BP 92/51; PULSE 62; PULSE 64; PULSE 66
[2023-06-18 07:27] VITALS: BP 117/63; PULSE 73; RESP 18; TEMP 36.4; O2SAT 98
[2023-06-18] MEDS: hydroCHLOROthiazide 12.5 MG TAB PO (08:51)
[2023-06-18] MEDS: Metoprolol CR 50 MG TABCR PO (08:51)
[2023-06-18] MEDS: Aspirin E.C. 325 MG TABEC PO (08:52)
[2023-06-18] MEDS: Cyanocobalamin 500 MCG TAB 1000 MCG PO (08:52)
[2023-06-18] MEDS: Clopidogrel 75 MG TAB PO (08:52)
--- NOTE | 2023-06-18 09:17 | W.PM.PROGNOT ---
Date of Service Date of service: 06/18/23 Time of Service: 09:18 Assessment and Plan Assessment and plan (1) NSTEMI (non-ST elevated myocardial infarction): Status: Acute Assessment and plan: troponin peaked at 492, no chest pain, remains hemodynamically stable cardiology consulted, heparin discontinued, recommends outpatient stress test, if further chest pain possible cath will discharge home on plavix and statin, already on bb and asa echo shows EF 60% with no obvious WMA, aortic sclerosis without significant stenosis. (2) Acute electrocardiogram changes: Status: Acute Assessment and plan: positive troponins now flat, no chest pain with improved EKG st depressions. history of CAD s/p cardiac stent see above (3) Syncope: Status: Chronic Assessment and plan: no further episodes, continue on telemetry. orthostatic vitals. fall precautions PT consulted (4) BPH (benign prostatic hyperplasia): Status: Chronic Assessment and plan: continue tamsulosin no evidence of urinary retention (5) Essential hypertension: Status: Chronic Assessment and plan: blood pressure stable, monitor and continue home medication. continue metropolol and hctz (6) Delirium: Status: Acute Assessment and plan: multifactoral, including acute hospitalization, lack of sleep, received narcotic this am, likely underlying cognitive impairment. will add melatonin and seroquel. safety precautions (7) Discharge planning issues: Status: Acute Assessment and plan: plan to discharge to home with home health services discussed with Dr Veliz Objective Last Vital Signs Temp 36.4 C L 06/18/23 07:27 Pulse 73 06/18/23 07:27 Resp 18 06/18/23 07:27 BP 117/63 06/18/23 07:27 Pulse Ox 98 06/18/23 07:27 Laboratory Results - last 24 hr 06/16/23 06:30 APTT 56.8 H
[2023-06-18 10:06] LABS: Abs Immature Grans 0.07 10^3/uL (0.0-0.06); Absolute Basophil Count 0.05 10^3/uL (0.0-0.2); Absolute Eosinophil Count 0.21 10^3/uL (0.0-0.7); Absolute Lymphocyte Count 0.63 10^3/uL (1.2-3.4); Absolute Monocyte Count 0.95 10^3/uL (0.1-0.8); Absolute Neutrophil Count 6.36 10^3/uL (1.2-6.7); Basophils % 0.6; Eosinophils % 2.5; HCT 39.3 % (40.0-50.0); HGB 13.7 g/dL (13.5-17.5); Immature Grans % 0.8; Lymphocytes % 7.6; MCH 30.2 pg (27.0-33.0); MCHC 34.9 % (32.0-36.0); MCV 87 fL (80-95); MPV 9.4 fL (8.0-11.0); Monocytes % 11.5; Platelet Count 278 10^3/uL (130-400); RBC 4.54 10^6/uL (4.36-5.78); RDW 12.2 % (11.8-14.1); RDW-SD 39.1 fL; WBC 8.27 10^3/uL (4.4-10.8)
[2023-06-18 10:12] LABS: Anion Gap 11.1 mmol/L (3-11); BUN 18 mg/dL (7-18); CO2 25.9 mmol/L (21.0-32.0); Calcium 9.9 mg/dL (8.5-10.1); Chloride 96 mmol/L (98-107); Glucose 114 mg/dL (74-106); Magnesium 1.9 mg/dL (1.8-2.4); Potassium 3.7 mmol/L (3.5-5.1); Sodium 133 mmol/L (136-145)
[2023-06-18 11:20] VITALS: BP 119/67; PULSE 72; RESP 18; TEMP 37.4; O2SAT 95
--- NOTE | 2023-06-18 12:36 | PT.INTREAT ---
PT Notes Visit Reasons: Syncope Inpatient Physical Therapy Treatment Note [facility] Date:06/18/23 SUBJECTIVE: Mickey offers no complaints to me this am. I thought I was going home. OBJECTIVE: []? Therapeutic Activities (31764g3): Direct one-on-one instruction in dynamic activities to improve functional performance. ? BED MOBILITY/TRANSFERS? pt seated in recliner ? Sit-stand: I? Stand-sit: I ? Provided skilled cues and instruction on performance and technique throughout. GAIT? Assistive Device: FWW? Weight bearing: full Assist: SBA ? Distance:? 350'? Therapeutic Exercises ([id number]): Direct one-on-one instruction in therapeutic exercises to develop strength, endurance, range of motion and flexibility. ? Exercises ?sit to stands without hands x6 LAQ x10 ea, SSH x10, HR x10, standing hip abd x10 ASSESSMENT:? tolerated session well. No LOB/SOB noted. No fatigue PLAN: will continue to progress strength and functional mobility as he is able to tolerate. TREATMENT CODE/TIME: 24min. [id number], [id number]
--- NOTE | 2023-06-18 14:17 | W.PM.DS.N ---
Date of service: 06/18/23 Time of Service: 14:00 DS: Diagnosis Discharge Diagnosis (1) NSTEMI (non-ST elevated myocardial infarction): Status: Acute (2) Acute electrocardiogram changes: Status: Acute (3) Syncope: Status: Chronic (4) BPH (benign prostatic hyperplasia): Status: Chronic (5) Essential hypertension: Status: Chronic (6) Delirium: Status: Acute (7) Discharge planning issues: Status: Acute Discharge Plan Disposition Patient Disposition: Home W/Home Health Services Condition: Stable Discharge Details Reason For Visit: Syncope Admit Date/Time: 06/15/23 18:40 Admit Provider: Dre Ferrara Attending Provider: Dre Ferrara Primary Care Provider: Aysha Odonnell Hospital Course Hospital Course: This independent living at home a 78 year old male with a history of cardiac stent with coronary artery disease, essential hypertension,cognitive impairment who called family at 5 am on 06/14/2023 to report a fall presented to the ED at [facility] on 06/15/2023 with family, for evaluation of status-post fall and new onset confusion. In the ED the EKG showed diffused ST segment elevation, head CT and trauma on physical exams were negative. Initial troponin was negative then 347. The case was discussed with hospitalist services and patient was admitted as an observation patient to the medical surgical floor with telemetry for non ST elevation myocardial infarction and syncope.The patient later progressed to inpatient admission. The patient received a loading dose of Plavix as well and heparin drip therapy, atorvastatin, his home beta-bob metoprolol, and aspirin were continued. The troponin level peaked at 490 then decreased and stabilized at 218 without further chest pain. Cardiology was consulted and follow-up pending as an outpatient as the cardiac ultrasounds shows an LVEF of 60% with aortic sclerosis without significant stenosis. The patient received physical therapy and will continue as outpatient for progress in strength, endurance, range of motion and flexibility. The patient will be discharged home with home health nursing, physical therapy, occupational therapy, and medical receptionist medical assistant. The patient will go home on plavix and statin, and continue metorprolol and aspirin already in use. The patient can continue a short course of melatonin if he cannot sleep at night until the follow-up appointment with his PCp , Dr. Odonnell. Cardiology recommended: Cardiac stress test as an outpatient /myocardial perfusion imaging study with pharmacologic stress . Cardiology follow-up pending; the office will call with an appointment. Further recommendation from Dr. Lunsford are that if the patient should have recurrent symptoms then referral for cardiac catheterization should be considered Follow up with PCP. Dr. Odonnell scheduled for 06/23 at .14:20 Home Meds and New Rx's Prescriptions: New atorvastatin 40 mg Tablet 80 mg PO QPM Qty: 60 0RF clopidogrel 75 mg Tablet 75 mg PO DAILY Qty: 30 0RF aspirin 81 mg capsule 81 mg PO DAILY Qty: 30 0RF melatonin 3 mg Tablet 3 mg PO HS 10 Days Qty: 10 0RF Continued nitroglycerin [Nitrostat] 0.4 mg tablet, sublingual 0.4 mg Sublingual PRN Qty: 25 3RF diphth,pertus(acell),tetanus 2.5-8-5 Lf-mcg-Lf/0.5mL syringe 0.5 ml IM ONCE Qty: 0.5 0RF Rx Instructions: as a single dose mirtazapine 7.5 mg tablet 7.5 mg PO QHS Qty: 90 4RF hydrocodone-acetaminophen 5-325 mg tablet 2 tab PO TID MDD 6 PRN (Reason: pain) Qty: 42 0RF meloxicam 15 mg tablet 15 mg PO DAILY PRN (Reason: pain (scale score 4-6)) Qty: 90 5RF tamsulosin 0.4 mg capsule 0.8 mg PO QHS Qty: 180 3RF hydrochlorothiazide 12.5 mg tablet 12.5 mg PO QAM Qty: 90 4RF metoprolol succinate 50 mg tablet extended release 24 hr 50 mg PO DAILY Qty: 90 4RF cyanocobalamin (vitamin B-12) 1,000 mcg capsule 1,000 mcg PO DAILY Qty: 30 0RF Discontinued aspirin [Ecotrin] 325 MG tablet,delayed release (DR/EC) 325 mg PO DAILY Discharge Instructions Instructions: Heart Attack (DC), Fall Prevention for Older Adults (DC) Stand Alone Forms: Nursing Discharge Form Referrals: Aysha Odonnell MD, DC [Primary Care Provider] - 06/23/23 2:20 pm (Your apt will be with Ria Red ) Farrah Lunsford MD [ [facility] STAFF PHYSICIAN] - (Office will call you with an apt) Activity:: Activity as Tolerated Equipment/Supplies:: No Equipment Needed Diet:: As Tolerated Discharge Orders Discharge Orders: Discharge Order (Routine); Ordered 06/18/23 Ordered By: Lawanda Christina DS: Summary Time Spent with Patient providing and/or coordinating discharge services: Greater than 30 minutes Status at Discharge Functional status at discharge: uses cane/walker Overall status at discharge: patient is back to baseline Mental Status: mental status grossly normal Speech and Movement: speech and movement normal Mood: congruent mood Affect: normal affect Exam Narrative Exam Narrative: Constitutional The patient is sitting in chair comfortable and cooperative during the interview, family is present The patient is well groomed without acute distress and has average body habitus HENMT: Head is normocephalic, facial structures with normal appearance Eyes: Well aligned Neck: Normal ROM Neuro:alert and oriented to self, person, place time and situation. No neurological focal deficit Chest:Chest is symmetrical and normal appearance Resp: Normal respiratory pattern, speaks in full sentences, unlabored breathing, clear lung bilaterally Cardio: regular rhythm, S1, S2, no murmur GI: Abdomen is not distended, soft and non tender, bowel sounds are present : Back/spine/Pelvis: No back tenderness, normal alignment Integumentary: No skin lesions or rash Extremities: strength 5/5 to bilateral lower and upper extremities Psych: RASS 0, congruent mood and normal affect. Psych Mental Status: mental status grossly normal Speech and Movement: speech and movement normal Mood: congruent mood Affect: normal affect DS: Data Vitals/I&O Vitals and I&O: Vital Signs Temperature 37.4 C 06/18/23 11:20 Temperature Source Tympanic 06/18/23 11:20 Pulse 72 06/18/23 11:20 Pulse Rhythm Regular 06/18/23 09:50 Pulse 78 06/14/23 16:16 Respiratory Rate 18 06/18/23 11:20 Respiratory Effort Normal, Non-Labored 06/18/23 09:50 Respiratory Depth Normal 06/18/23 09:50 Respiratory Pattern Normal 06/18/23 09:50 Blood Pressure 119/67 06/18/23 11:20 Blood Pressure Mean 80 06/14/23 16:16 Blood Pressure Position Sitting 06/14/23 14:43 Pulse Oximetry 95 06/18/23 11:20 Oxygen Delivery Method Room Air 06/18/23 11:20 Oxygen Flow Rate 0 06/18/23 11:20 Pain Level 0 06/18/23 11:20 Comment pt in bed, with eyes closed. Pt opens eyes to name being called. Voices no complaints. Heparin infusing to R AC as ordered. IV site patent w/no s/s of erythema or edema present. Call light within reach, bed in low position. next Carley: 11 AM 06/15/23 07:15 Intake & Output 06/17/23 06/18/23 06/18/23 23:59 11:59 23:59 Intake Total 690 / 690 Output Total 250 / 500 850 / 850 Balance -240 / -490 -160 / -160 Intake: IV Oral 690 / 690 Output: Urine 250 / 500 850 / 850 Other: Urine Color Yellow Yellow Urine Appearance Clear Clear Comment used urinal Voiding Methods Toilet Data Completed and Pending Labs on day of discharge: Labs from last 24 hours 06/18/23 09:43 WBC 8.27 RBC 4.54 Hgb 13.7 Hct 39.3 L MCV 87 MCH 30.2 MCHC 34.9 RDW 12.2 Plt Count 278 MPV 9.4 Immature Gran % 0.8 Neutrophils % 77.0 Lymphocytes % 7.6 Monocytes % 11.5 Eosinophils % 2.5 Basophils % 0.6 Nucleated RBC % 0.0 Absolute Neutrophils 6.36 Absolute Lymphocytes 0.63 L Absolute Monocytes 0.95 H Absolute Eosinophils 0.21 Absolute Basophils 0.05 Sodium 133 L Potassium 3.7 Chloride 96 L Carbon Dioxide 25.9 Anion Gap 11.1 H BUN 18 Creatinine 1.0 Est GFR (CKD-EPI 2020) 78.00 Glucose 114 H Calcium 9.9 Magnesium 1.9 PFSH All Active Problems (Updated 06/17/23 @ 15:11 by Lawanda Christina NP) Discharge planning issues (Acute) Delirium (Acute) NSTEMI (non-ST elevated myocardial infarction) (Acute) Syncope (Chronic) Acute electrocardiogram changes (Acute) Neck mass (Acute) Impacted cerumen, bilateral (Acute) History of smoking (Acute) Urinary frequency (Acute) Tongue cancer (Acute) Tongue ulcer (Acute) Tongue sore (Acute) Imbalance (Acute) Memory loss (Acute) Carotid stenosis (Acute) B12 deficiency (Acute) Secondary polycythemia (Chronic) Macrocytosis (Chronic) Parkinsons disease (Chronic) Elevated MCV (Acute) Acute CVA (cerebrovascular accident) (Acute) Advance care planning (Acute) BPH (benign prostatic hyperplasia) (Chronic) History of intravascular stent placement (Chronic) ASCVD (arteriosclerotic cardiovascular disease) (Chronic) Cyst of kidney, acquired (Chronic) RIGHT; stent placed approx. 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 Heart disease Brother Diabetes Heart disease Grandfather No problems noted. Grandfather No problems noted. Grandmother No problems noted. Grandmother No problems noted. Sister No problems noted. Sister No problems noted. Sister No problems noted. Brother Neoplasm Brother Stroke Son No problems noted. Daughter No problems noted. Daughter No problems noted. Social History Smoking/Tobacco Use Status: Former Tobacco Use tobacco type: cigarettes and smokeless tobacco Quit Date: 09/05/06 Tobacco: How many years used: 25 Smokeless tobacco user: chewing tobacco Second Hand Exposure: Yes Counseling given: counseling >10 minutes Smoking risk assessment performed?: Yes Alcohol Intake: former Drug use: Never Substance use type: does not use Caregiver/Support person: No Household members: none Housing: house Do you need help understanding health information?: Often Pets and animals: Yes Pets and animals: cat(s) and dog(s) Sexually active: Yes Do you think of yourself as: straight/heterosexual Current gender identity: male What is your relationship status?: How often do you talk on the phone with friends or family?: three or more times per week How often do you get together with friends or relatives?: three or more times per week How often do you attend evangelical or methodist services?: decline to answer Do you belong to any clubs or organized social groups?: no Panel score (0-1 are the most socially isolated patients): 2 What type of physical activity do you participate in: none Duration: 45-60 minutes/day Frequency: 1-2 times per week Rubia/Taoism: Roman Catholic Special rubia needs: No Seatbelt use: always Helmet use: Yes Helmet use: always Drive intox or ride w/intox cdl company driver: No Do you feel safe at home: Yes Do you feel safe in your relationship?: Yes Time Spent with Patient Time Spent with Patient: 70-84 minutes4 Time was spent: preparing to see the patient(eg.review tests), ordering medications,tests, procedures, referring, communicating with other health pet care attendant, indepentently interpreting results, counseling the patient and care coordination
[2023-06-18 14:38] VITALS: BP 117/73; PULSE 77; RESP 18; TEMP 35.5; O2SAT 96
--- NOTE | 2023-06-18 16:45 | CMDISCH_ITS ---
Date of service: 06/18/23 Time of Service: 16:45 LACE Index Scoring Tool Questions: Length of Stay (in days): 3 Was the patient admitted via the E.D.?: Yes Comorbidities: Previous M.I., Cerebrovascular Disease and Any Tumor E.D. 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 He will follow up with his community providers and plan of care and transport with family. Patient/Family Education Needs: Review of discharge instructions, limitations, follow up plan, discuss Ask me Three Services Needed at Discharge: Home Health Care Services
--- NOTE | 2023-06-20 11:55 | PT.INDS ---
PT Notes Visit Reasons: Syncope Inpatient Physical Therapy Discharge Summary Dates of Service: 06/17/23 - 06/18/23 Referring Doctor: Lawanda Christina PT Orders: PT CONSULT: limited ability to ambulate This document serves as a summary of care. No PT services were provided on this date. Patient Profile/Admitting Diagnosis: 78-year-old male with a past medical history of previous mouth cancer, with subsequent surgical excision, coronary artery disease with stents, Parkinson's disease, some mild baseline confusion, who presented to ER for evaluation of fall. Diagnosed with NSTEMI and admitted for medical care. PT consult requested for assessment of mobility. Patient was seen for 2 sessions of PT intervention over the course of 2 days. They were able to demonstrate safety and mobility sufficient to allow for safe return home with HH services. Social History/Home Situation: Patient lives alone in a private home. Utilizes FWW at baseline. Is , with his currently residing at the [facility]. He states that he visits her every day. States that he was receiving HH, although unsure if this included PT. Equipment Owned/DME: [facility] Subjective: none obtained Objective: General Observation: Sitting at edge of bed at initiation of session. No lines. Mental Status: Alert, pleasant and cooperative throughout session. Pain: denies Vital Signs: on telemetry ROM: Right Upper Extremity: WFL Left Upper Extremity: WFL Right Lower Extremity: WFL Left Lower Extremity: WFL Strength: Right Upper Extremity: Shoulder flexion 4/5. Biceps 4/5. Triceps 3+/5. Vine Fruit Farming Supervisor weak, but equal. Left Upper Extremity: Shoulder flexion 4/5. Biceps 4/5. Triceps 3+/5. Vine Fruit Farming Supervisor weak, but equal. Right Lower Extremity: Hip flexion 4/5. Quads 4-/5. HS 4/5. Ankle 5/5. Left Lower Extremity: Hip flexion 4/5. Quads 4-/5. HS 4/5. Ankle 5/5. BED MOBILITY/TRANSFERS? Sit-stand: I? Stand-sit: I ? GAIT? Assistive Device: FWW? Weight bearing: full Assist: SBA ? Distance:? 350'? ? Balance: Static Sitting: normal Dynamic Sitting: normal Static Standing: fair Dynamic Standing: fair Assessment: Patient is a 78 year old male referred to physical therapy services with the diagnosis of limited ability to ambulate. Patient presented with ataxia and balance impairment. Demonstrated improvements in balance and stability with gait sufficient to allow for safe return home with PT. Goals: Goals X1 week 1. Supine-Sit : independent (met) 2. Sit-Supine : independent (MET) 3. Sit-Stand : independent (MET) 4. Stand-Sit : independent (MET) 5. Bed-Chair : supervision with FWW (MET) 6. Chair-Bed : supervision with FWW (MET) 7. Gait : supervision with FWW x 50' (Progressing Toward) Plan of Care/Treatment Plan: D/C from PT in acute care setting DISCHARGE RECOMMENDATIONS: Home with services (HH PT) TREATMENT CODE/TIME: none Mirna Roman, PT, DPT [facility]
== END 2023-06-18 16:20 | disposition home health service (06) | DRG 281 ==
LOC: ER 17:15 → MS 18:02
PROVIDERS: Family Medicine; General Practice; Nurse Practitioner Acute Care; Admitting Provider Internal Medicine; Emergency Provider Student in an Organized Health Care Education/Training Program; PCP Family Medicine; Visit Provider Internal Medicine
DX: I21.4 Non-ST elevation (NSTEMI) myocardial infarction (principal); F05 Delirium due to known physiological condition; R55 Syncope and collapse; I25.10 Atherosclerotic heart disease of native coronary artery without angina pectoris; I10 Essential (primary) hypertension; N40.0 Benign prostatic hyperplasia without lower urinary tract symptoms; Z95.5 Presence of coronary angioplasty implant and graft; R41.89 Other symptoms and signs involving cognitive functions and awareness; W19.XXXA Unspecified fall, initial encounter; Z87.891 Personal history of nicotine dependence; I65.29 Occlusion and stenosis of unspecified carotid artery; E53.8 Deficiency of other specified B group vitamins; G20.C Parkinsonism, unspecified; G89.29 Other chronic pain; E78.5 Hyperlipidemia, unspecified; K57.30 Diverticulosis of large intestine without perforation or abscess without bleeding; D75.1 Secondary polycythemia; M25.511 Pain in right shoulder; D75.89 Other specified diseases of blood and blood-forming organs; N28.1 Cyst of kidney, acquired; M54.16 Radiculopathy, lumbar region; Z90.49 Acquired absence of other specified parts of digestive tract; Z85.810 Personal history of malignant neoplasm of tongue
CPT/HCPCS: 36415; 80048; 80053; 82805; 85027; 87637; 93005; 96360; 96365; 96366; 97110; 97112; 97162; 97530; 99222; 99233; 99285; 70450; 71046; 72125; 73080; 81003; 81015; 83605; 83735; 84443; 84484; 85025; 85730; 93010; 93306; 99223; 99239

== ENCOUNTER → 2023-06-16 10:40 | Outpatient (BNVA) | payer MEDICARE, SELFPAY | PROVIDERS: PCP Family Medicine; Referring Provider Family Medicine; Visit Provider Internal Medicine Cardiovascular Disease ==

== ENCOUNTER → 2023-07-04 01:37 | Outpatient (CLI) | payer MEDICARE, SELFPAY ==
--- NOTE | 2023-07-04 08:00 | DI.NM_ITS ---
APPROVED REPORT Exam: Pharmacologic Patient Location: Out-Patient Room/Bed: Stress Nurse: Dylan Tovar RN Ordering Provider:THANG SCHROEDER, Contact Number: [phone] BMI: 22.95 Baseline Rhythm: Sinus Rhythm Indications: ASCVD, NSTEMI, atherosclerotic heart disease. Medical History Medical History: NSTEMI, Delirium, Syncope, smoker, ETOH Cardiac Medications: atorvastatin, plavix, HCTZ, Metoprolol, Mertazipiine., Allergies: Percocet, ativan Cardiac Risk Factors: ASCVD, NSTEMI, smoker, ETOH Previous Cardiac Procedures: Cardiac cath with stents. Pretest Chest Pain Characteristics: none Exercise History: Sedentary Physical Disabilities: Deconditioned. Lung Sounds: Clear to auscultation Heart Sounds: Regular Stress Test Details Test: Pharmacologic stress testing performed using 0.4 mg of regadenoson per 5 mL given IV over 10 s econds. Reason for pharmacologic stress test: physical limitation. Nuclear Acquisition: Rest Tc-99m/Stress Tc-99m 1 day Rest Isotope: Tc-99m Sestamibi. Dose: 10.0 Date: 07/04/2023 Injection Time: 0845 Stress Isotope: Tc-99m Sestamibi. Dose: 31.0 Date: 07/04/2023 Injection Time: 1015 HR Resting HR Supine: 63 bpm Max Heart Rate (APMHR): 144.861137 bpm Target HR (85% APMHR): 122.717219 bpm Max HR Achieved: 83 bpm % of APMHR: 57.64 Recovery HR: 81 bpm HR response to stress: Normal HR response to stress Comment: Computer registered 135 for max HR after registeringartifact. BP Resting BP Supine: 125/68 mmHg Max BP: 125/68 mmHg BP response to stress: Normal blood pressure response to stress. ECG Resting ECG: Sinus Rhythm Ectopy: none Stress ECG: Sinus Rhythm ST Change: No significant ST segment changes noted Arrhythmia: None Recovery ECG: Sinus Rhythm Recovery ST Change: No significant ST segment changes noted Recovery Arrhythmia: None Clinical Rate Pressure Product: [id number] Stress ECG Conclusion 1. Resting electrocardiogram showed early transition, nondiagnostic ST abnormalities 2. Patient underwent pharmacologic stress with regadenoson 3. Peak heart rate achieved was 58% of predicted for age 4. Electrocardiographic portion of the test was nondiagnostic 5. See MPI report Stress Test Summary STAGE HR BP SpO2 Symptoms NOTES Supine 63 125/68 95 none 1 min post Lexiscan injection 70 125/68 95 none 3 min post Lexiscan injection 83 92/48 SOB 6 min post Lexiscan injection 81 102/58 99 none MPI Conclusion Myocardial perfusion is normal. There is no ischemia or evidence of prior infarction Ejection fraction is 64% with normal wall motion Radiologist Interpretation Radiologist agrees with Sports Cartoonist's Interpretation.
[2023-07-04] MEDS: Regadenoson 0.4 MG/5 ML SYR IVP (13:42)
== END ==
PROVIDERS: PCP Family Medicine; Visit Provider Internal Medicine Cardiovascular Disease
DX: I21.4 Non-ST elevation (NSTEMI) myocardial infarction (principal); I25.10 Atherosclerotic heart disease of native coronary artery without angina pectoris
CPT/HCPCS: 78452; 93016; 93018; 93017; J2785

== ENCOUNTER 2023-07-08 11:01 | Outpatient (CLI) | payer MEDICARE, SELFPAY ==
--- NOTE | 2023-07-08 11:00 | RT.EKG_ITS ---
APPROVED REPORT Exam: Resting ECG Reason for Exam: cardiac evaluation Patient Location: O HR:72 bpm ECG Measurements Heart Rate 72 AXIS SD 165 P -34 QRSd 83 QRS 43 QT 388 T 61 QTc 425 Conclusion Sinus rhythm...normal P axis, V-rate 50- 99 Low voltage, extremity leads...all extremity leads <0.5mV Abnormal R-wave progression, early transition...QRS area>0 in V2 Baseline wander in lead(s) III,aVL
== END 2023-07-08 11:02 | disposition home or self-care (01) ==
LOC: DI.CARD 11:02
PROVIDERS: PCP Family Medicine; Visit Provider Internal Medicine Cardiovascular Disease
DX: I10 Essential (primary) hypertension (principal); I21.4 Non-ST elevation (NSTEMI) myocardial infarction; I25.10 Atherosclerotic heart disease of native coronary artery without angina pectoris
CPT/HCPCS: 93010

== ENCOUNTER → 2023-07-08 11:21 | Outpatient (BNVA) | payer MEDICARE, SELFPAY | PROVIDERS: PCP Family Medicine; Referring Provider Family Medicine; Visit Provider Internal Medicine Cardiovascular Disease | DX: I25.2 Old myocardial infarction (principal); G20.A1 Parkinson's disease without dyskinesia, without mention of fluctuations; I25.10 Atherosclerotic heart disease of native coronary artery without angina pectoris; I10 Essential (primary) hypertension | CPT/HCPCS: 93005; 99213 ==

== ENCOUNTER 2023-11-15 04:14 | Outpatient (CLI) | payer MEDICARE, SELFPAY ==
[2023-11-15 13:07] LABS: TSH 3.76 uIU/Ml (0.36-3.74)
[2023-11-16 18:06] LABS: Lab Add On Test DONE
[2023-11-16 18:24] LABS: FREE T4 0.93 ng/dL (0.76-1.46)
== END 2023-11-15 04:15 | disposition home or self-care (01) ==
LOC: LOS 04:14
PROVIDERS: PCP Family Medicine; Visit Provider Preventive Medicine Undersea and Hyperbaric Medicine
DX: E03.8 Other specified hypothyroidism (principal)
CPT/HCPCS: 36415; 84439; 84443

== ENCOUNTER 2023-12-19 06:03 | Outpatient (CLI) | payer MEDICARE, SELFPAY ==
[2023-12-19 12:24] LABS: FREE T4 0.94 ng/dL (0.76-1.46)
[2023-12-19 14:09] LABS: TSH 3.71 uIU/Ml (0.36-3.74)
== END 2023-12-19 06:04 | disposition home or self-care (01) ==
LOC: LOS 06:03
PROVIDERS: PCP Family Medicine; Visit Provider Internal Medicine Hematology & Oncology
DX: R79.89 Other specified abnormal findings of blood chemistry (principal); E03.8 Other specified hypothyroidism
CPT/HCPCS: 36415; 84439; 84443

== ENCOUNTER → 2024-01-25 08:07 | Outpatient (BNVA) | payer MEDICARE, SELFPAY | PROVIDERS: PCP Family Medicine; Visit Provider Psychiatry & Neurology Neurology | DX: G20.C Parkinsonism, unspecified (principal); R41.3 Other amnesia; E53.8 Deficiency of other specified B group vitamins; R26.89 Other abnormalities of gait and mobility | CPT/HCPCS: 99214 ==

== ENCOUNTER 2024-04-30 03:24 | Outpatient (CLI) | payer MEDICARE, SELFPAY ==
[2024-04-30 12:08] LABS: CREATININE 0.8 mg/dL (0.70-1.30); Estimated GFR 91.72 (mL/min/1.73m2); TSH 2.83 uIU/Ml (0.36-3.74)
== END 2024-04-30 03:25 | disposition home or self-care (01) ==
LOC: LOS 03:24
PROVIDERS: PCP Family Medicine; Visit Provider Preventive Medicine Undersea and Hyperbaric Medicine
DX: E03.8 Other specified hypothyroidism (principal); C06.9 Malignant neoplasm of mouth, unspecified
CPT/HCPCS: 82565; 84443

== ENCOUNTER 2024-05-03 02:54 | Outpatient (CLI) | payer MEDICARE, SELFPAY ==
--- NOTE | 2024-05-03 15:03 | DI.CT_ITS ---
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 Submandibular glands appeared right submandibular gland appears normal. There has been resection of the left submandibular gland. Lymphadenopathy: There are scattered lymph nodes seen along the level one to level three all measuri ng less than 8 mm in short axis diameter which are physiologic in nature. Carotids/Jugular: Heavy arterial calcifications. Moderate stenosis bilateral proximal internal crump tid arteries. Soft tissues: Surgical clips on the left side of the neck. No evidence of recurrent mass. Resection of musculature in this area. Bones: No fracture. Significant dental disease. Degenerative changes in the thoracic spine. Chest: Tracheobronchial tree: Patent where visualized. Mediastinum and Aura: No dominant adenopathy or fluid collection. Pulmonary parenchyma: No consolidation or dominant measurable mass. Qtvh-ws-gyojvybr ascended hart es, greater in the upper lobes. Pleura: No effusion or pneumothorax. Heart/Aorta: Thoracic aorta non-dilated. The heart is not dilated. Severe coronary artery calcificati ons are seen. Bones: No fracture. No lytic or blastic lesions. Soft tissues: Unremarkable. Visualized upper abdomen: Unremarkable. IMPRESSION: Postsurgical changes in the submandibular region. No evidence for recurrence mass or adenopathy. No evidence of metastatic disease in the chest. RADIATION DOSE DELIVERED: 351.05mGy.cm Total DLP DATA REPOSITORY: All CT scans at this facility are submitted to the National Radiology Data Registry (NRDR) Dose Index Registry (DIR) with the [employer] (ACR). RADIATION OPTIMIZATION: All CT scans at this facility use at least one of these dose optimization te chniques: automated exposure control; mA and/or kV adjustment per patient size (includes targeted exa ms where dose is matched to clinical indication); or iterative reconstruction.
[2024-05-03] MEDS: Omnipaque 350 MG/ML 100 ML BTL IJ (15:04)
[2024-05-03] MEDS: Normal Saline - Diluent 50 ML VIAL IJ (15:05)
== END 2024-05-03 03:14 ==
LOC: DI 02:54
PROVIDERS: PCP Family Medicine; Visit Provider Preventive Medicine Undersea and Hyperbaric Medicine
DX: C06.9 Malignant neoplasm of mouth, unspecified (principal)
CPT/HCPCS: 70491; 71260; J3490

== ENCOUNTER → 2024-07-06 10:20 | Outpatient (BNVA) | payer MEDICARE, SELFPAY | PROVIDERS: PCP Family Medicine; Referring Provider Family Medicine; Visit Provider Internal Medicine Cardiovascular Disease | DX: I25.10 Atherosclerotic heart disease of native coronary artery without angina pectoris (principal) | CPT/HCPCS: 99213 ==

== ENCOUNTER 2024-08-24 01:37 | Outpatient (CLI) | payer MEDICARE, SELFPAY ==
[2024-08-24 12:12] LABS: HCT 40.9 % (40.0-50.0); HGB 14.6 g/dL (13.5-17.5); MCH 33.1 pg (27.0-33.0); MCHC 35.7 % (32.0-36.0); MCV 93 fL (80-95); MPV 9.7 fL (8.0-11.0); Platelet Count 278 10^3/uL (130-400); RBC 4.41 10^6/uL (4.36-5.78); RDW 12.4 % (11.8-14.1); RDW-SD 42.5 fL; WBC 8.35 10^3/uL (4.4-10.8)
[2024-08-24 12:25] LABS: ALT 21 U/L (16-63); AST 19 U/L (15-37); Albumin 4.2 g/dL (3.4-5.0); Alkaline Phosphatase 106 U/L (46-116); BUN 12 mg/dL (7-18); Bilirubin, Total 0.57 mg/dL (0.2-1.0); CREATININE 0.9 mg/dL (0.70-1.30); Calcium 9.5 mg/dL (8.5-10.1); Chloride 104 mmol/L (98-107); Estimated GFR 87.96 (mL/min/1.73m2); Glucose 104 mg/dL (74-106); Potassium 4.4 mmol/L (3.5-5.1); Sodium 142 mmol/L (136-145); Total Protein 7.4 g/dL (6.4-8.2)
== END 2024-08-24 01:38 | disposition home or self-care (01) ==
LOC: LOS 01:37
PROVIDERS: PCP Family Medicine; Visit Provider Family Medicine
DX: I10 Essential (primary) hypertension (principal); Z79.01 Long term (current) use of anticoagulants
CPT/HCPCS: 36415; 80053; 85027

== ENCOUNTER → 2025-01-22 08:33 | Outpatient (BNVA) | payer MEDICARE, SELFPAY | PROVIDERS: PCP Family Medicine; Visit Provider Psychiatry & Neurology Neurology | DX: R41.3 Other amnesia; E53.8 Deficiency of other specified B group vitamins; R26.89 Other abnormalities of gait and mobility; G20.A1 Parkinson's disease without dyskinesia, without mention of fluctuations; I10 Essential (primary) hypertension | CPT/HCPCS: 99214 ==

== ENCOUNTER 2025-03-26 02:11 | Outpatient (CLI) | payer MEDICARE, SELFPAY ==
[2025-03-26 14:59] LABS: Estimated GFR 94.90 (mL/min/1.73m2); TSH 2.28 uIU/mL (0.36-3.74)
[2025-03-26] MEDS: Omnipaque 350 MG/ML 100 ML BTL IJ (15:31)
--- NOTE | 2025-03-26 15:45 | DI.CT_ITS ---
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 TECHNIQUE: Imaging Protocol: Axial computed tomography images with coronal and sagittal reformatted images were created and reviewed CONTRAST MATERIAL: Intravenous: Omnipaque 350 Contrast volume:100 ml contrast COMPARISON: CT CT NECK CHEST W from 05/03/2024 FINDINGS: Parotids: Normal. Submandibular glands: Resection of the left submandibular gland Thyroid gland: Normal. Lymph nodes:. No adenopathy identified. Soft tissues: Multiple surgical clips are again noted on the left side of the neck. Resection of left-sided musculature again noted. The epiglottis and vocal cords are within normal limits. Lungs: Emphysematous changes. Bones: Degenerative changes of the cervical spine. Resection of the left side of the hyoid bone. Visualized portions of the brain and orbits: Unremarkable. Sinuses and mastoids: Clear. IMPRESSION: Postsurgical changes on the left side of the neck. No evidence of recurrence mass or adenopathy. RADIATION DOSE DELIVERED: 281.91mGy.cm Total DLP DATA REPOSITORY: All CT scans at this facility are submitted to the National Radiology Data Registry (NRDR) Dose Index Registry (DIR) with the [employer] (ACR). RADIATION OPTIMIZATION: All CT scans at this facility use at least one of these dose optimization techniques: automated exposure control; mA and/or kV adjustment per patient size (includes targeted exams where dose is matched to clinical indication); or iterative reconstruction.
== END 2025-03-26 02:31 ==
PROVIDERS: PCP Family Medicine; Visit Provider Preventive Medicine Undersea and Hyperbaric Medicine
DX: E03.8 Other specified hypothyroidism (principal); Z98.890 Other specified postprocedural states
CPT/HCPCS: 70491; 82565; 84443; J3490

== ENCOUNTER 2025-07-07 15:43 | Emergency (ER) | payer MEDICARE, SELFPAY ==
--- NOTE | 2025-07-07 15:30 | RT.EKG_ITS ---
APPROVED REPORT Exam: Resting ECG Reason for Exam: dizzy/weak Patient Location: E HR:75 bpm ECG Measurements Heart Rate 75 AXIS TN 161 P -17 QRSd 82 QRS 52 QT 363 T 34 QTc 407 Conclusion Sinus rhythm...normal P axis, V-rate 60- 99 No STEMI
--- NOTE | 2025-07-07 15:30 | DI.RAD_ITS ---
Exam(s) XR PORTABLE CHEST AP EXAM: XR PORTABLE CHEST AP CLINICAL HISTORY: cough. TECHNIQUE: 2D digital imaging was performed. COMPARISON: CR XR CHEST 2V PA LATERAL from 06/16/2023 FINDINGS: Single AP portable view. Heart size is upper normal. The mediastinum is not widened. No obvious infiltrates nor pleural effusions. No pulmonary edema. No fractures. No pneumothorax. Mildly elevated left hemidiaphragm again noted. Are air-filled bowel loops adjacent to the left hemidiaphragm, similar to previous. IMPRESSION: No acute pulmonary findings on this single AP portable view of the chest. DATA REPOSITORY: RADIATION DOSE DELIVERED:
--- NOTE | 2025-07-07 15:37 | W.ED.GENAD ---
Discharge Plan Disposition Patient Disposition: Home Discharge Details Clinical Impression: Acute hyponatremia, Malaise Primary Care Provider: Aysha Odonnell ED Provider: Ramón Lerma Home Meds and New Rx's Prescriptions: No Action hydrochlorothiazide 12.5 mg tablet 12.5 mg PO QAM Qty: 90 4RF nitroglycerin [Nitrostat] 0.4 mg tablet, sublingual 0.4 mg Sublingual PRN Qty: 25 3RF clopidogrel [Plavix] 75 mg tablet 75 mg PO DAILY Qty: 90 4RF tamsulosin 0.4 mg capsule 0.8 mg PO QHS Qty: 180 3RF metoprolol succinate 50 mg tablet extended release 24 hr 50 mg PO DAILY Qty: 90 4RF atorvastatin 80 mg tablet 80 mg PO QPM Qty: 90 4RF hydrocodone-acetaminophen 5-325 mg tablet 2 tab PO TID MDD 6 PRN (Reason: pain) Qty: 42 0RF aspirin 81 mg tablet,chewable 81 mg PO DAILY Qty: 30 0RF cyanocobalamin (vitamin B-12) 1,000 mcg capsule 1,000 mcg PO DAILY Qty: 30 0RF Discharge Instructions Instructions: Hyponatremia Additional Instructions: As discussed, your salt levels were low today however your symptoms were much improved following some IV fluids. As such I do recommend maintaining a healthy diet for several days, and do not drink too much free water or liquids low in electrolytes (such as coffee without milk so). Please follow-up with your primary care provider regarding your visit to the emergency department today. Be sure to discuss results of all test performed here today to include radiology, and laboratory testing as well as results for any pending cultures. Should your symptoms worsen, or if you develop new concerning symptoms, please return immediately emergency department for further evaluation. HPI General Date/Time Provider Initiated Documentation: 07/07/25 15:49. HPI Narrative: MDM/Narrative: 76-year-old male with dizziness, lightheadedness, and leg weakness. No pain, fever, chills, or changes in hearing. Blood sugar 99. Differential Diagnosis: - Myocardial infarction: History of heart attack 17 years ago with three stents. Plan: EKG, serial trops, Rule out cardiac events. - Electrolyte imbalance: Plan: Assess electrolyte levels. - Urinary tract infection: Takes pills for urination, no known infections. Plan: Conduct urinalysis. - Respiratory infection: History of congestion and cough for 2 weeks. Plan: Order chest x-ray to r/o PNA - CVA: unlikely as I find no focal deficits on exam. ED Course: - Patient had some nipping improvement of his symptoms during his ED evaluation. Laboratory findings notable for hyponatremia of 127. Given patient notes resolution of his symptoms, will fluid resuscitate with 1 L of normal saline, repeat lab as long as he improving and patient remains asymptomatic suspect he will be stable for discharge. Remainder of workup shows no evidence of pneumonia, urinary tract infection, other significant electrolyte abnormalities or evidence of ACS based on negative troponins. Patient has ambulated here in the department without any significant symptoms. He and his daughter are in agreement with plan for discharge to follow-up with primary care. Clinical Impression: - Dizziness - Lightheadedness Disposition: Discharge This document was created with assistance from NABIL Co-Commissary Clerk. The patient consented to its use. HPI: The patient is a 76-year-old male with a history of myocardial infarction 17 years ago and subsequent placement of three coronary stents, presenting with dizziness. The patient reports experiencing congestion and cough for the past two weeks, which he attributes to an upper respiratory infection. No abnormalities were detected during his visit to [facility] on Tuesday. This morning, he awoke feeling weak, lightheaded, and experiencing balance difficulties. He has been increasingly reliant on his cane for mobility to prevent falls. He notes slight dysarthria but remains cognitively intact with no evidence of muscle weakness or facial droop. His blood glucose level was 99 mg/dL. He denies ear congestion, changes in hearing, fever, chills, diaphoresis, or pain. There have been no recent illnesses among close contacts. The patient adheres to his prescribed medication regimen and maintains normal eating and drinking habits. He has no history of urinary tract infections and is on medication for urinary symptoms. He has no known allergy to acetaminophen. He experiences dizziness upon standing, leg weakness, and tremulousness. This is the first occurrence of these symptoms. He has been self-medicating with Jol[place] Plus, which he reports as beneficial. ROS: Negative besides as mentioned above Exam: Exam(s) XR PORTABLE CHEST AP EXAM: XR PORTABLE CHEST AP CLINICAL HISTORY: cough. TECHNIQUE: 2D digital imaging was performed. COMPARISON: CR XR CHEST 2V PA LATERAL from 06/16/2023 FINDINGS: Single AP portable view. Heart size is upper normal. The mediastinum is not widened. No obvious infiltrates nor pleural effusions. No pulmonary edema. No fractures. No pneumothorax. Mildly elevated left hemidiaphragm again noted. Are air-filled bowel loops adjacent to the left hemidiaphragm, similar to previous. IMPRESSION: No acute pulmonary findings on this single AP portable view of the chest. Rhythm: NSR Rate: 75 [place]: Normal axis Intervals: Normal intervals Other findings: No acute ST segment or T wave changes to suggest acute ischemia. Labs: Laboratory Tests Range/Units 07/07/25 07/07/25 07/07/25 16:00 17:31 17:35 WBC (4.4-10.8) 10^3/uL 8.54 RBC (4.36-5.78) 10^6/uL 4.10 L Hgb (13.5-17.5) g/dL 12.3 L Hct (40.0-50.0) % 35.3 L MCV (80-95) fL 86 MCH (27.0-33.0) pg 30.0 MCHC (32.0-36.0) % 34.8 RDW (11.8-14.1) % 12.3 Plt Count (130-400) 10^3/uL 234 MPV (8.0-11.0) fL 9.3 Immature Gran % % 0.8 Neutrophils % % 82.7 Lymphocytes % % 4.6 Monocytes % % 10.3 Eosinophils % % 1.2 Basophils % % 0.4 Nucleated RBC % (0.0-0.3) % 0.0 Absolute Neutrophils (1.2-6.7) 10^3/uL 7.07 H Absolute Lymphocytes (1.2-3.4) 10^3/uL 0.39 L Absolute Monocytes (0.1-0.8) 10^3/uL 0.88 H Absolute Eosinophils (0.0-0.7) 10^3/uL 0.10 Absolute Basophils (0.0-0.2) 10^3/uL 0.03 VBG Lactate (<or=2.0) mmol/L 1.0 Sodium (136-145) mmol/L 127 L Potassium (3.5-5.1) mmol/L 3.6 Chloride (98-107) mmol/L 89 L Carbon Dioxide (21.0-32.0) mmol/L 25.9 Anion Gap (3-11) mmol/L 12.1 H BUN (7-18) mg/dL 15 Creatinine (0.70-1.30) mg/dL 0.9 Est GFR (CKD-EPI 2020) (mL/min/1.73m2) 87.42 Glucose (74-106) mg/dL 86 Calcium (8.5-10.1) mg/dL 9.3 Magnesium (1.8-2.4) mg/dL 1.7 L Total Bilirubin (0.2-1.0) mg/dL 0.9 AST (15-37) U/L 28 ALT (16-63) U/L 18 Alkaline Phosphatase (46-116) U/L 133 H Troponin I (<or=76) ng/L 8 Total Protein (6.4-8.2) g/dL 7.1 Albumin (3.4-5.0) g/dL 4.0 Urine Color (Yellow) Yellow Urine Clarity (Clear) Clear Urine pH (5-8) 6.0 Ur Specific [place] (1.005-1.025) 1.010 Urine Protein (Neg-Trace) mg/dL Negative Urine Ketones (Negative) mg/dL Negative Urine Blood (Negative) Trace-lysed H Urine Nitrite (Negative) Negative Urine Bilirubin (Negative) Negative Urine Urobilinogen (Up to 0.2) mg/dL 0.2 Ur Leukocyte Esterase (Negative) Negative Urine RBC (0-2) HPF 0-2 Urine WBC (0-5) HPF Negative Ur Epithelial Cells (Negative) HPF Negative Urine Crystals (Negative) HPF Negative Urine Bacteria (Negative) HPF Negative Urine Mucus (Negative) Negative Ur Culture Indicated? No Urine Glucose (Negative) mg/dL Negative COVID-19 Source Nasopharynx SARS-CoV-2 (PCR) (Negative) Negative Influenza Type A (PCR) (Negative) Negative Influenza Type B (PCR) (Negative) Negative RSV (PCR) (Negative) Negative Range/Units 07/07/25 07/07/25 17:44 18:30 WBC (4.4-10.8) 10^3/uL RBC (4.36-5.78) 10^6/uL Hgb (13.5-17.5) g/dL Hct (40.0-50.0) % MCV (80-95) fL MCH (27.0-33.0) pg MCHC (32.0-36.0) % RDW (11.8-14.1) % Plt Count (130-400) 10^3/uL MPV (8.0-11.0) fL Immature Gran % % Neutrophils % % Lymphocytes % % Monocytes % % Eosinophils % % Basophils % % Nucleated RBC % (0.0-0.3) % Absolute Neutrophils (1.2-6.7) 10^3/uL Absolute Lymphocytes (1.2-3.4) 10^3/uL Absolute Monocytes (0.1-0.8) 10^3/uL Absolute Eosinophils (0.0-0.7) 10^3/uL Absolute Basophils (0.0-0.2) 10^3/uL VBG Lactate (<or=2.0) mmol/L Sodium (136-145) mmol/L 129 L Potassium (3.5-5.1) mmol/L Chloride (98-107) mmol/L Carbon Dioxide (21.0-32.0) mmol/L Anion Gap (3-11) mmol/L BUN (7-18) mg/dL Creatinine (0.70-1.30) mg/dL Est GFR (CKD-EPI 2020) (mL/min/1.73m2) Glucose (74-106) mg/dL Calcium (8.5-10.1) mg/dL Magnesium (1.8-2.4) mg/dL Total Bilirubin (0.2-1.0) mg/dL AST (15-37) U/L ALT (16-63) U/L Alkaline Phosphatase (46-116) U/L Troponin I (<or=76) ng/L 11 Total Protein (6.4-8.2) g/dL Albumin (3.4-5.0) g/dL Urine Color (Yellow) Urine Clarity (Clear) Urine pH (5-8) Ur Specific [place] (1.005-1.025) Urine Protein (Neg-Trace) mg/dL Urine Ketones (Negative) mg/dL Urine Blood (Negative) Urine Nitrite (Negative) Urine Bilirubin (Negative) Urine Urobilinogen (Up to 0.2) mg/dL Ur Leukocyte Esterase (Negative) Urine RBC (0-2) HPF Urine WBC (0-5) HPF Ur Epithelial Cells (Negative) HPF Urine Crystals (Negative) HPF Urine Bacteria (Negative) HPF Urine Mucus (Negative) Ur Culture Indicated? Urine Glucose (Negative) mg/dL COVID-19 Source SARS-CoV-2 (PCR) (Negative) Influenza Type A (PCR) (Negative) Influenza Type B (PCR) (Negative) RSV (PCR) (Negative) Radiology: Exam(s) XR PORTABLE CHEST AP EXAM: XR PORTABLE CHEST AP CLINICAL HISTORY: cough. TECHNIQUE: 2D digital imaging was performed. COMPARISON: CR XR CHEST 2V PA LATERAL from 06/16/2023 FINDINGS: Single AP portable view. Heart size is upper normal. The mediastinum is not widened. No obvious infiltrates nor pleural effusions. No pulmonary edema. No fractures. No pneumothorax. Mildly elevated left hemidiaphragm again noted. Are air-filled bowel loops adjacent to the left hemidiaphragm, similar to previous. IMPRESSION: No acute pulmonary findings on this single AP portable view of the chest. Related Data Home Medications Medication Instructions Recorded Confirmed cyanocobalamin (vitamin B-12) 1,000 mcg PO DAILY #30 caps 05/07/21 07/05/25 1,000 mcg capsule aspirin 81 mg chewable tablet 81 mg PO DAILY #30 tabs 06/18/23 07/05/25 nitroglycerin 0.4 mg sublingual 0.4 mg sublingual PRN #25 tabs 07/08/23 07/05/25 tablet (Nitrostat) tamsulosin 0.4 mg capsule 0.8 mg (2 x 0.4 mg) PO QHS #180 07/10/24 07/05/25 caps metoprolol succinate 50 mg 50 mg PO DAILY #90 tabs 07/16/24 07/05/25 tablet,extended release 24 hr atorvastatin 80 mg tablet 80 mg PO QPM #90 tabs 09/09/24 07/05/25 clopidogrel 75 mg tablet (Plavix) 75 mg PO DAILY #90 tabs 10/01/24 07/05/25 hydrochlorothiazide 12.5 mg tablet 12.5 mg PO QAM #90 tabs 03/21/25 07/05/25 hydrocodone 5 mg-acetaminophen 325 2 tab PO TID PRN pain #42 tabs 06/03/25 07/05/25 mg tablet Previous Rx's Medication Instructions Recorded cyanocobalamin (vitamin B-12) 1,000 mcg PO DAILY #30 caps 05/07/21 1,000 mcg capsule aspirin 81 mg chewable tablet 81 mg PO DAILY #30 tabs 06/18/23 nitroglycerin 0.4 mg sublingual 0.4 mg sublingual PRN #25 tabs 07/08/23 tablet (Nitrostat) tamsulosin 0.4 mg capsule 0.8 mg (2 x 0.4 mg) PO QHS #180 07/10/24 caps metoprolol succinate 50 mg 50 mg PO DAILY #90 tabs 07/16/24 tablet,extended release 24 hr atorvastatin 80 mg tablet 80 mg PO QPM #90 tabs 09/09/24 clopidogrel 75 mg tablet (Plavix) 75 mg PO DAILY #90 tabs 10/01/24 hydrochlorothiazide 12.5 mg tablet 12.5 mg PO QAM #90 tabs 03/21/25 hydrocodone 5 mg-acetaminophen 325 2 tab PO TID PRN pain #42 tabs 06/03/25 mg tablet Allergies Allergy/AdvReac Type Severity Reaction Status Date / Time acetaminophen (From Percocet) AdvReac hallucinati Verified 04/01/25 08:50 ons lorazepam (From Ativan) AdvReac hallucinati Verified 04/01/25 08:50 ons oxycodone (From Percocet) AdvReac hallucinati Verified 04/01/25 08:50 ons General SREEDHAR: 3 PFSH All Active Problems (Updated 07/07/25 @ 19:22 by Ramón Lerma MD) Malaise (Acute) Acute hyponatremia (Acute) Nail dystrophy (Acute) Elevated TSH (Acute) Coronary artery disease (Chronic) Coordination impairment (Acute) Neck mass (Acute) Impacted cerumen, bilateral (Acute) History of smoking (Acute) Urinary frequency (Acute) Tongue ulcer (Acute) Tongue sore (Acute) Imbalance (Acute) Memory loss (Acute) Carotid stenosis (Acute) B12 deficiency (Acute) Secondary polycythemia (Chronic) Macrocytosis (Chronic) Parkinsons disease (Chronic) Elevated MCV (Acute) Acute CVA (cerebrovascular accident) (Acute) Advance care planning (Acute) BPH (benign prostatic hyperplasia) (Chronic) History of intravascular stent placement (Chronic) ASCVD (arteriosclerotic cardiovascular disease) (Chronic) Cyst of kidney, acquired (Chronic) RIGHT; stent placed approx. 2 1/2 years ago Diverticulosis of colon without diverticulitis (Chronic) SIGMOID COLECTOMY; unable to have another colonoscopy due to cost Hyperlipidemia (Chronic) Lumbar disc prolapse with compression radiculopathy (Chronic 08/03/07) 02/06 MRI: L5/S1 DISC HERNIATION Polycythemia vera (Chronic) secondary to smoking Right shoulder pain (Chronic 07/22/15) Essential hypertension (Chronic 06/27/13) Chronic pain disorder (Chronic) CONTRACT 01/19/16 06/06/17 CONTROLLED SUBSTANCE AGREEMENT~RENEWED Medical History Delirium NSTEMI (non-ST elevated myocardial infarction) Acute electrocardiogram changes Syncope Tongue cancer Smoker History of alcoholism H/O sigmoidoscopy Smoker Herpes zoster 06/04/05 OD Alcohol abuse 10/03/08 quit 2004 Surgical History S/P partial glossectomy 09/22/2021 History of intravascular stent placement Stent placement Sigmoidoscopy (~10/1998) Family History Mother Neoplasm lung Father , BLOOD CLOT at age 84. Heart disease Brother Diabetes Heart disease Grandfather No problems noted. Grandfather No problems noted. Grandmother No problems noted. Grandmother No problems noted. Sister No problems noted. Sister No problems noted. Sister No problems noted. Brother Neoplasm Brother Stroke Son No problems noted. Daughter No problems noted. Daughter No problems noted. Social History Smoking/Tobacco Use Status: Current every day Tobacco Type: cigarettes Tobacco: How many years used: 50 Smokeless tobacco user: chewing tobacco Quit status: considering quitting Second Hand Exposure: Yes Counseling given: counseling >10 minutes Smoking risk assessment performed?: Yes Alcohol Intake: former Drug use: Never Substance use type: does not use Caregiver/Support person: No Household members: none Housing: house Do you need help understanding health information?: Often Pets and animals: Yes Pets and animals: cat(s) and dog(s) Sexually active: Yes Do you think of yourself as: straight/heterosexual Current gender identity: male What is your relationship status?: How often do you talk on the phone with friends or family?: three or more times per week How often do you get together with friends or relatives?: three or more times per week How often do you attend mormon or hindu services?: decline to answer Do you belong to any clubs or organized social groups?: no Panel score (0-1 are the most socially isolated patients): 2 What type of physical activity do you participate in: none Duration: 45-60 minutes/day Frequency: 1-2 times per week Rubia/Latter-Day: Scientologist Special rubia needs: No Seatbelt use: always Helmet use: Yes Helmet use: always Drive intox or ride w/intox interstate bus driver: No Do you feel safe at home: Yes Do you feel safe in your relationship?: Yes
[2025-07-07 15:42] VITALS: BP 188/70; PULSE 74; RESP 18; TEMP 36.1; O2SAT 98
[2025-07-07] MEDS: Normal Saline 1,000 ML 1000 ML IV (16:00)
[2025-07-07 16:10] LABS: Abs Immature Grans 0.07 10^3/uL (0.0-0.06); HCT 35.3 % (40.0-50.0); HGB 12.3 g/dL (13.5-17.5); Immature Grans % 0.8 %; MCH 30.0 pg (27.0-33.0); MCHC 34.8 % (32.0-36.0); MCV 86 fL (80-95); MPV 9.3 fL (8.0-11.0); Platelet Count 234 10^3/uL (130-400); RBC 4.10 10^6/uL (4.36-5.78); RDW 12.3 % (11.8-14.1); RDW-SD 38.7 fL; WBC 8.54 10^3/uL (4.4-10.8)
[2025-07-07 16:21] LABS: Magnesium 1.7 mg/dL (1.8-2.4)
[2025-07-07 16:28] LABS: ALT 18 U/L (16-63); AST 28 U/L (15-37); Albumin 4.0 g/dL (3.4-5.0); Alkaline Phosphatase 133 U/L (46-116); Anion Gap 12.1 mmol/L (3-11); BUN 15 mg/dL (7-18); Bilirubin, Total 0.9 mg/dL (0.2-1.0); CO2 25.9 mmol/L (21.0-32.0); Calcium 9.3 mg/dL (8.5-10.1); Chloride 89 mmol/L (98-107); Glucose 86 mg/dL (74-106); Potassium 3.6 mmol/L (3.5-5.1); Sodium 127 mmol/L (136-145); Total Protein 7.1 g/dL (6.4-8.2); Troponin I 8 ng/L (<or=76)
[2025-07-07] MEDS: MAGNESIUM SULFATE 1 GM/100 ML BAG IV_INF (17:17)
[2025-07-07 17:43] LABS: Glucose Negative (Negative)
[2025-07-07 17:48] LABS: RBC 0-2 HPF (0-2); WBC Negative HPF (0-5)
[2025-07-07 17:49] LABS: C & S Indicated? No
[2025-07-07 18:07] LABS: Troponin I 11 ng/L (<or=76)
--- NOTE | 2025-07-07 18:14 | NUR.NOTE ---
Nursing Note: This RN help pt to stand at bedside twice to use the urinal. pt was unsteady on feet, both attempts fell back on to stretcher.
[2025-07-07 18:15] LABS: COVID-19 PCR Negative (Negative); RSV PCR Negative (Negative)
[2025-07-07 18:42] LABS: Sodium 129 mmol/L (136-145)
[2025-07-07 19:20] VITALS: RESP 16
--- NOTE | 2025-07-07 19:20 | NUR.NOTE ---
PT walked around the unit, with no problem minimal shuffling, PT stated his legs were a little weak from laying in bed all day. Nursing Note:
[2025-07-07 19:30] VITALS: BP 110/53; PULSE 81; RESP 15; TEMP 36.6; O2SAT 97
[2025-07-07 19:39] VITALS: BP 110/53; PULSE 81; RESP 15; TEMP 36.6; O2SAT 97
== END 2025-07-07 20:13 | disposition home or self-care (01) ==
LOC: ER 19:37
PROVIDERS: Emergency Provider General Practice; PCP Family Medicine
DX: E87.1 Hypo-osmolality and hyponatremia (principal); R53.81 Other malaise; R42 Dizziness and giddiness; Z86.79 Personal history of other diseases of the circulatory system
CPT/HCPCS: 80053; 87637; 93005; 96361; 96365; 99284; 71045; 81003; 81015; 83605; 83735; 84295; 84484; 85025; 93010; J3475

== ENCOUNTER 2025-07-11 13:46 | Outpatient (CLI) | payer MEDICARE, SELFPAY ==
[2025-07-11 15:52] LABS: Abs Immature Grans 0.07 10^3/uL (0.0-0.06); HCT 36.6 % (40.0-50.0); HGB 12.7 g/dL (13.5-17.5); Immature Grans % 0.8 %; MCH 30.0 pg (27.0-33.0); MCHC 34.7 % (32.0-36.0); MCV 86 fL (80-95); MPV 9.5 fL (8.0-11.0); Platelet Count 299 10^3/uL (130-400); RBC 4.24 10^6/uL (4.36-5.78); RDW 12.2 % (11.8-14.1); RDW-SD 38.5 fL; WBC 8.67 10^3/uL (4.4-10.8)
[2025-07-11 16:14] LABS: Anion Gap 9.6 mmol/L (3-11); BUN 10 mg/dL (7-18); CO2 26.4 mmol/L (21.0-32.0); Calcium 9.6 mg/dL (8.5-10.1); Chloride 93 mmol/L (98-107); Glucose 95 mg/dL (74-106); Potassium 4.1 mmol/L (3.5-5.1); Sodium 129 mmol/L (136-145); TSH (W/Ref FT4) 2.99 uIU/mL (0.36-3.74)
== END 2025-07-11 13:47 | disposition home or self-care (01) ==
LOC: LOS 13:47
PROVIDERS: Nurse Practitioner Family; PCP Family Medicine; Visit Provider Family Medicine
DX: R69 Illness, unspecified (principal); E03.9 Hypothyroidism, unspecified; I10 Essential (primary) hypertension; E87.1 Hypo-osmolality and hyponatremia
CPT/HCPCS: 36415; 80048; 84443; 85025

== ENCOUNTER → 2025-07-25 05:57 | Outpatient (CLI) | payer MEDICARE, SELFPAY ==
--- NOTE | 2025-07-25 08:30 | DI.CT_ITS ---
Exam(s) CT HEAD WO/W EXAM: CT HEAD WO/W CLINICAL HISTORY: wt loss and h/o neck CA, C76.0, R63.4. TECHNIQUE: Imaging Protocol: Both noninfused and contrast infused CT scans of the brain were performed. IV Contrast Dose =75 cc Axial computed tomography images with coronal and sagittal reformatted images were created and reviewed COMPARISON: CT CT HEAD WO from 06/16/2023 FINDINGS: There are no skull fractures nor skull lesions. There is some mucosal thickening noted in the right frontal sinus. Remainder of the paranasal sinuses are clear as are the ethmoidal air cells.. There is no evidence of intracranial hemorrhage, mass effect, or shift of midline structures. There are no extra-axial fluid collections. The ventricles are not enlarged or shifted and there is no blood within the ventricular system nor within the basal cisterns.There is some periventricular hypodensity consistent with chronic small vessel disease again noted. Also small unchanged nonhemorrhagic lacunar infarcts in the left external capsule. There is heavy calcification within the intra cavernous and supraclinoid aspects of both in paternal carotid arteries, similar to previous. Scratch There are no ring enhancing lesions in the brain and there is no abnormal meningeal enhancement, focal or diffuse. IMPRESSION: No significant intracranial findings.No evidence of metastatic disease in the brain. See separate CT scan report today for significant findings in the liver.. RADIATION DOSE DELIVERED: 875.66mGy.cm Total DLP DATA REPOSITORY: All CT scans at this facility are submitted to the National Radiology Data Registry (NRDR) Dose Index Registry (DIR) with the [employer] (ACR). RADIATION OPTIMIZATION: All CT scans at this facility use at least one of these dose optimization techniques: automated exposure control; mA and/or kV adjustment per patient size (includes targeted exams where dose is matched to clinical indication); or iterative reconstruction.
--- NOTE | 2025-07-25 08:33 | DI.CT_ITS ---
Exam(s) CT NECK CHEST ABD PEL W EXAM: CT NECK CHEST ABD PEL W CLINICAL HISTORY: weight loss, R63.8. TECHNIQUE: Imaging Protocol: Axial computed tomography images with coronal and sagittal reformatted images were created and reviewed CONTRAST MATERIAL: Intravenous: Omnipaque 350 Contrast volume:125 mL Oral: Yes. Oral contrast was also administered for bowel opacification. COMPARISON: CT CT NECK W from 03/26/2025 FINDINGS: CHEST: LUNGS: There are no infiltrates nor pleural effusions and there are no metastatic nodules in the lung stephens. No findings in the trachea and mainstem bronchi. PULMONARY ARTERIES: There are no intraluminal filling defects to suggest presence of acute pulmonary emboli. MEDIASTINUM: There is no hilar nor mediastinal adenopathy. Visualized thyroid unremarkable. CARDIAC: Heart size is upper normal. There is no pericardial effusion.Caliber of the thoracic aorta is within upper normal limits. No evidence of aortic dissection. OSSEOUS: No significant osseous lesions.No fractures. There few Schmorl's node inferior endplate invagination incidentally noted ABDOMEN: There is no ascites. LIVER: There are multiple large centrally hypodense metastatic lesions in the liver; average size 5 cm. GALLBLADDER/BILIARY: No obvious gallbladder pathology. CBD is not dilated. PANCREAS: No evidence of pancreatic mass nor dilatation of the pancreatic duct. SPLEEN: Spleen size is normal. It contains multiple tiny calcified benign granulomas but no ominous intrasplenic lesions. Splenic and portal veins are patent. ADRENALS: There are no significant adrenal masses. KIDNEYS: No calculi nor hydronephrosis. No solid renal masses. There is a benign cyst in the right kidney measuring 1.7 cm, not requiring follow-up. ABDOMINAL AORTA: The abdominal aorta is heavily calcified but not enlarged. The iliac arteries are also heavily calcified-atherosclerotic but not enlarged. There is also heavily calcified plaque at the origin of the celiac and SMA arteries and renal arteries. LYMPH NODES: There is no retroperitoneal nor paraaortic adenopathy. There is no adenopathy around the aortic bifurcation nor along the iliac chains and there is no significant inguinal adenopathy. ABDOMINAL WALL: No evidence of significant anterior abdominal wall nor inguinal hernia. GI: The oral contrast has not reached the colon by the time of image acquisition and small bowel loop diameters are upper normal-minimally prominent, measuring up to 2.6 cm the colon is not collapsed. No free air. No abscess. PELVIS: LYMPH NODES: There is no intrapelvic nor inguinal adenopathy. GI: The appendix is difficult to identify as an independent structure but there are no obvious signs of acute appendicitis.There is abundant fecal material in the rectum and the rectum is distended to 9 cm diameter but without an obvious rectal mass URINARY BLADDER: Bladder base is indented by significantly enlarged and lobulated prostate gland. There is also a Hutch diverticulum in the right-side of the urinary bladder which measures 2.7 x 3 cm. REPRODUCTIVE: Prostate gland is grossly enlarged and lobulated. OSSEOUS: No significant osseous lesions. No fractures evident. CT SOFT TISSUES NECK: VISUALIZED PARANASAL SINUSES: There is mucosal thickening in the right frontal sinus. All of the other paranasal sinuses are clear. NASOPHARYNX: Unremarkable ORODENTAL: Unremarkable. There is evidence of prior left-sided neck surgery with surgical absence of the left submandibular gland again noted and multiple surgical clips in left side of the neck as well as resection of the left-sided musculature. Both parotid glands are intact-unremarkable. Right submandibular gland appears unremarkable. OROPHARYNX: Unremarkable. No new masses evident. HYPOPHARYNX: Unremarkable. Valleculae and epiglottis and aryepiglottic folds appear normal. VOCAL CORDS: Unremarkable. No masses evident. Subglottic airway appears unremarkable. THYROID GLAND: Unremarkable. Normal size and no obvious nodules. SALIVARY GLANDS: Left submandibular gland has been resected as described above.. No new masses in this region. LYMPH NODES: There is no significant new adenopathy evident in the neck and supraclavicular regions. OTHER: VISUALIZED LUNG APICES: No significant focal findings. No metastatic lung nodules evident. No infiltrates. OSSEOUS: No lytic nor blastic osseous lesions evident. IMPRESSION: 1. There are multiple large metastatic lesions in the liver. There is no ascites and no mesenteric masses nor significant lymphadenopathy in the abdomen pelvis. 2. The prostate gland is significantly enlarged and lobulated and significantly indents the urinary bladder. Recommend testing for prostate malignancy. 3. No evidence of metastatic disease in the chest. Also no infiltrates nor pleural effusions. 4. Postsurgical changes in the left side of the neck including resection musculature and the left submandibular gland. However, there are no abnormal masses in the neck and there is no lymphadenopathy in the neck evident at this time. 5. There are no lytic nor blastic osseous lesions identified and there are no fractures evident. RADIATION DOSE DELIVERED: 663.52 mGy.cm Total DLP 663.52 mGy.cm Total DLP 663.52 mGy.cm Total DLP 663.52 mGy.cm Total DLP 663.52 mGy.cm Total DLP DATA REPOSITORY: All CT scans at this facility are submitted to the National Radiology Data Registry (NRDR) Dose Index Registry (DIR) with the [employer] (ACR). RADIATION OPTIMIZATION: All CT scans at this facility use at least one of these dose optimization techniques: automated exposure control; mA and/or kV adjustment per patient size (includes targeted exams where dose is matched to clinical indication); or iterative reconstruction.
[2025-07-25] MEDS: Barium Sulfate 2% W/V-Creamy Vanilla Smoothie 450 ML BTL PO (12:03)
[2025-07-25] MEDS: Barium Sulfate 2% W/V-Berry Smoothie 450 ML BTL PO (12:03)
[2025-07-25] MEDS: Normal Saline Flush 10 ML SYR IVP (14:16)
[2025-07-25] MEDS: Normal Saline - Diluent 50 ML VIAL IJ ×2 (14:16→15:00)
[2025-07-25] MEDS: Omnipaque 350 MG/ML 500 ML BTL-Imaging package IJ (14:18)
== END ==
LOC: DI 05:58
PROVIDERS: PCP Family Medicine; Visit Provider Family Medicine
DX: C76.0 Malignant neoplasm of head, face and neck (principal); R63.4 Abnormal weight loss
CPT/HCPCS: 70491; 74177; 70470; 71260

== ENCOUNTER 2025-07-29 13:59 | Outpatient (CLI) | payer MEDICARE, SELFPAY ==
[2025-07-29 16:40] LABS: ALT 23 U/L (10-49); AST 37 U/L (<34); Albumin 4.3 g/dL (3.4-5.0); Alkaline Phosphatase 132 U/L (46-116); Anion Gap 8.7 mmol/L (3-11); BUN 18 mg/dL (9-23); Bilirubin, Total 0.50 mg/dL (0.2-1.2); CO2 27.9 mmol/L (20.0-31.0); Calcium 10.0 mg/dL (8.3-10.6); Chloride 99 mmol/L (98-107); Glucose 121 mg/dL (74-106); Potassium 4.0 mmol/L (3.5-5.1); Sodium 136 mmol/L (136-145); Total Protein 6.6 g/dL (5.7-8.2)
== END 2025-07-29 14:00 | disposition home or self-care (01) ==
LOC: LOS 14:00
PROVIDERS: PCP Family Medicine; Visit Provider Family Medicine
DX: R63.4 Abnormal weight loss (principal); I10 Essential (primary) hypertension; N40.0 Benign prostatic hyperplasia without lower urinary tract symptoms
CPT/HCPCS: 36415; 80053; 84154

== ENCOUNTER 2025-08-07 02:53 | Emergency (ER) | payer MEDICARE, SELFPAY ==
[2025-08-07] VITALS (45 sets, daily range): BP systolic 113–143; BP diastolic 45–68; PULSE 71–94; RESP 13–98; TEMP 36.9–37.8; O2SAT 91–98
--- NOTE | 2025-08-07 02:30 | RT.EKG_ITS ---
APPROVED REPORT Exam: Resting ECG Reason for Exam: dizziness Patient Location: E HR:92 bpm ECG Measurements Heart Rate 92 AXIS MI [id number] P [id number] QRSd 81 QRS 4 QT 295 T 163 QTc 365 Conclusion Accelerated junctional rhythm...absent P waves, accele'd V-rate Repol abnrm suggests ischemia, diffuse leads...ST-T neg, ant/lat/inf Physician: DIffuse ST depression in Anterior and Lateral Leads. These changes are new. No STEMI. Posterior EKG done (please see that ekg, no signs of ST Elevation there either)
--- NOTE | 2025-08-07 02:43 | ED.GENADUL_ITS ---
Discharge Plan Disposition Patient Disposition: Transfer-Acute Inpatient Care Specific Acute Inpt Facility: [facility] Condition: Stable Discharge Details Clinical Impression: Closed right hip fracture, Non-ST elevation FL (NSTEMI) Primary Care Provider: Aysha Odonnell ED Provider: Pop Merritt Home Meds and New Rx's Prescriptions: No Action nitroglycerin [Nitrostat] 0.4 mg tablet, sublingual 0.4 mg Sublingual PRN Qty: 25 3RF ondansetron 4 mg tablet,disintegrating 4 mg PO Q8H PRN (Reason: nausea and vomiting) Qty: 60 4RF hydrocodone-acetaminophen 5-325 mg tablet 2 tab PO TID MDD 6 PRN (Reason: pain) Qty: 90 0RF tamsulosin 0.4 mg capsule 0.8 mg PO QHS Qty: 180 3RF mirtazapine 7.5 mg tablet 7.5 mg PO QHS Qty: 90 4RF aspirin 81 mg tablet,chewable 81 mg PO DAILY Qty: 30 0RF bupropion HCl 150 mg tablet extended release 24 hr 150 mg PO QAM Patient Comments: TAKE ONE TABLET BY MOUTH EVERY MORNING HPI General Date/Time Provider Initiated Documentation: 08/07/25 03:02 . HPI Narrative: 80-year-old male with a past medical history of previous mouth cancer, with subsequent surgical excision, coronary artery disease with stents, Parkinson's disease, recurrent metastatic lesions, of unknown source but suspected to be prostatic, who is currently DNR/DNI, who lives alone at home, presents today for evaluation of fall. Patient states that he got up this evening and was walking to get some water when his body started moving faster than his legs, and he fell forward and hit his head. He denies any loss of consciousness. He also hit his right hip at the time. He has pain in his head, neck and right hip. He denies any chest pain or abdominal pain or shortness of breath. EMS was called after lying on the ground for a few hours, and she was eventually brought to the ER for further assessment. He denies any new numbness or tingling. Neck pain is made worse with movement, right hip pain is made worse with palpation and movement. He is unable to bear weight. He is uncertai n if he is on a blood thinners, he denies any syncope. No other complaints at this time. Related Data Home Medications ?Medication ?Instructions ?Recorded ?Confirmed aspirin 81 mg chewable tablet 81 mg PO DAILY #30 tabs 06/18/23 08/07/25 nitroglycerin 0.4 mg sublingual 0.4 mg sublingual PRN #25 tabs 07/08/23 08/07/25 tablet (Nitrostat) tamsulosin 0.4 mg capsule 0.8 mg (2 x 0.4 mg) PO QHS # 180 07/10/24 08/07/25 Held on 08/07/25. caps Instructions: Prescription Finished ondansetron 4 mg disintegrating 4 mg PO Q8H PRN nausea and 07/11/25 08/07/25 tablet vomiting #60 tabs mirtazapine 7.5 mg tablet 7.5 mg PO QHS #90 tabs 07/2608/07/25 hydrocodone 5 mg-acetaminophen 325 2 tab PO TID PRN pa in #90 tabs 07/29/25 08/07/25 mg tablet bupropion HCl 150 mg 24 hr tablet, 150 mg PO QAM 08/0708/07/25 extended release Held on 08/07/25. Instructions: Changed by Provider Previous Rx's ?Medication ?Instructions ?Recorded aspirin 81 mg chewable tablet 81 mg PO DAILY #30 tabs 06/18/23 nitroglycerin 0.4 mg sublingual 0.4 mg sublingual PRN #25 tabs 07/08/23 tablet (Nitrostat) tamsulosin 0.4 mg capsule 0.8 mg (2 x 0.4 mg) PO QHS # 180 07/10/24 Held on 08/07/25. caps Instructions: Prescription Finished ondansetron 4 mg disintegrating 4 mg PO Q8H PRN nausea and 07/11/25 tablet vomiting #60 tabs mirtazapine 7.5 mg tablet 7.5 mg PO QHS #90 tabs 07/26 hydrocodone 5 mg-acetaminophen 325 2 tab PO TID PRN pa in #90 tabs 07/29/25 mg tablet Allergies Allergy/AdvReac Type Severity Reaction Status Date / Time acetaminophen (From Percocet) AdvReac hallucinati Verified 07/29/25 13:57 ons lorazepam (From Ativan) AdvReac hallucinati Verified 07/29/25 13:57 ons oxycodone (From Percocet) AdvReac hallucinati Verified 07/29/25 13:57 ons General SREEDHAR: 3 Exam Narrative Exam Narrative: 1.Const: Well-nourished, Well-developed, appearing stated age 2.Eyes: PERRL, no conjunctival injection, and symmetrical lids. 3.ENT: Atraumatic external nose and ears. Moist MM. Neck: Symmetric, trachea midline, No thyromegaly. There is no evidence of raccoon eyes, andino sign, CSF rhinorrhea, mastoid tenderness, cranial crepitus, hemotympanum, exophthalmos, or hyphema. Patient demonstrates intact dentition with no signs of tooth avulsion or fracture, no signs of jaw deformity, no evidence of a LeFort's fracture, with an intact palate, nose and orbital region. There is no evidence of a nasal septal hematoma. No proptosis. Jaw closes symmetrically. Airway is clear. 4.CVS: +S1/S2, Peripheral pulses 2+ and equal in all extremities. Brisk capillary refill in all extremities. 5.RESP: Unlabored respiratory effort. Mild scattered rhonchi. No wheezes 6.GI: Soft, Nontender/Nondistended, No hepatosplenomegaly. No guarding or rebound. 7.MSK: No tenderness on palpation of the chest abdomen or pelvis, patient does have tenderness over the right hip on palpation, slight shortening and external rotation of the right hip on exam. No tenderness over the knees or ankles. Additionally patient has mild tenderness at the base of his neck around C1/C2, no other midline tenderness. No other signs of trauma. 8.Skin: Warm, Dry. No rashes or lesions. 9.Neuro: visitor services technician II-XII grossly intact. Sensation grossly intact, no focal neurologic deficits. 10.Psych: (AAO) x3. Appropriate mood and affect Medical Decision Making 80-year-old male with a past medical history of previous mouth cancer, with subsequent surgical excision, coronary artery disease with stents, Parkinson's disease, recurrent metastatic lesions, of unknown source but suspected to be prostatic, who is currently DNR/DNI, who lives alone at home, presents today for evaluation of fall. Patient states that he got up this evening and was walking to get some water when his body started moving faster than his legs, and he fell forward and hit his head. He denies any loss of consciousness. He also hit his right hip at the time. He has pain in his head, neck and right hip. He denies any chest pain or abdominal pain or shortness of breath. EMS was called after lying on the ground for a few hours, and she was eventually brought to the ER for further assessment. He denies any new numbness or tingling. Neck pain is made worse with movement, right hip pain is made worse with palpation and movement. He is unable to bear weight. He is uncertain if he is on a blood thinners, he denies any syncope. No other complaints at this time. Exam demonstrates mild midline tenderness at around C1-C2, mild right-sided hip pain tenderness with slight shortening, mild rhonchi on exam. While the patient may have had a mechanical fall, he does have a fever now, demonstrates rhonchi concerning for pneumonia, UTI is also on the differential. He has hip pain after a fall suggestive of potential hip fracture, as well as some neck pain. EKG shows diffuse ST depressions in the anterior lateral leads. No elevations. Posterior EKG was performed and shows no evidence of reciprocal ST elevations. The patient has no signs of a STEMI, ischemia certainly high in the differential as well as hip fracture, pneumonia, or potential PE, as well as potential osseous injury of the neck. Will get CT imaging of these areas, will give Tylenol for pain, will check cardiac markers, will monitor closely and reassess. Will evaluate for infectious etiology. Despite being DNR/DNI, patient does agree to potential needed surgical interventions. 7:19 AM Patient's imaging workup shows right sided hip fracture, but no other acute process for the head neck chest abdomen or pelvis. Laboratory workup shows no white count or bandemia, does have lymphopenia, likely reflection of a viral etiology. No pneumonia on CT scan, no infection on urinalysis. COVID flu and RSV negative. Temperature is resolved here. The patient's EKG shows diffuse ST depressions in the anterior lateral leads. He remains chest pain-free. Initial troponin normal, 1 hour troponin elevated at 203-hour troponin elevated at 599. Patient has been given aspirin and will be heparinized. We did reach out to [facility], unfortunately they do not have any capacity for the NSTEMI and hip fracture at this time. We did reach out to [facility] and they are also at capacity and unable to accept the patient in transfer. We did contact [facility], and they accept the patient for transfer. I discussed the case with Dr. Swanson, and he accepts the patient, and I also spoke with Dr. Luna in the ED, and she also accepts the patient understands the situation. The patient's 2 daughters are both at bedside, they agree with the plan and interventions. I have extensively reviewed the treatment plan with the patient. I have addressed all patient concerns at this time. I have also discussed the plan with the admitting physician and they agree with the current assessment and plan and have agreed to assume responsibility for the patient. All parties demonstrate v erbal understanding and agreement with our assessment and plan at this time. The documentation in this chart was dictated using [employer] dictation software. Please excuse any dictation errors. At time of transfer the patient was reassessed and continued to demonstrate No signs of acute respiratory distress requiring intubation, hemodynamic instability requiring pressor support, or rapidly declining mental status. FINDINGS: Brain: Mild to moderate involutional changes of the brain parenchyma. Mild low attenuation in the periventricular white matter. This is a nonspecific finding most commonly seen in setting of microvascular ischemic change. No evidence of acute infarct. No intraparenchymal hemorrhage. No midline shift or mass effect. No extra-axial fluid collections or hemorrhage. Cerebral ventricles: No ventriculomegaly. Paranasal sinuses: Partial opacification of bilateral ethmoid air cells and right frontal sinus. Mastoid air cells: Visualized mastoid air cells are well aerated. Bones: Unremarkable. No acute fracture. Soft tissues: Unremarkable. IMPRESSION: 1. No evidence of acute intracranial abnormality. 2. Please refer to separately dictated report for cervical spine CT for description of findings in this region FINDINGS: Bones: Mild reversal of the normal cervical lordosis. No acute or suspicious osseous abnormalities. Moderate multilevel degenerative changes of the cervical spine, with findings including disc space narrowing, uncovertebral hypertrophy, facet arthropathy, marginal osteophytes, and posterior disc osteophyte complexes, greatest at C5 through C7. Lungs: Lung apices are normal. Vasculature: Marked atherosclerotic calcification of the right proximal internal carotid artery. Moderate atherosclerotic calcification of bilateral carotid bulbs. Soft tissues: Unremarkable. IMPRESSION: 1. No evidence of acute fracture or subluxation of the cervical spine. 2. Marked atherosclerotic calcification of the right proximal internal carotid artery, where there may be an underlying stenosis. Recommend nonemergent carotid ultrasound for further evaluation. 3. Moderate atherosclerotic calcification of bilateral carotid bulbs. 4. Please refer to separately dictated report for head CT for description of findings in this region. Thank you for allowing us to participate in the care of your patient. Dictated and Authenticated by: Ora Schwarz MD 08/07/2025 6:53 AM Eastern Time ([place] & [place]) FINDINGS: Bones/joints: Acute impacted subcapital fracture of right femur. No subluxation Soft tissues: Unremarkable. Organs: Right bladder diverticulum. Vasculature: Extensive vascular calcification. IMPRESSION: Acute right hip fracture. Thank you for allowing us to participate in the care of your patient. Dictated and Authenticated by: Bebeto Winters DO 08/07/2025 5:28 AM Eastern Time ([place] & [place]) FINDINGS: Pulmonary arteries: Main pulmonary artery normal in caliber. No pulmonary artery filling defects. Aorta: Ascending aorta dilated to 3.7 cm. No aortic dissection. Lungs: Mild emphysema. There is minimal bibasilar atelectasis. No parenchymal consolidation. Pleural spaces: No pneumothorax or pleural effusions. Heart: Heart minimally enlarged. Heart RV/LV ratio: 1.0 Coronary arteries: Coronary artery calcification. Stented left anterior descending coronary artery. Lymph nodes: No adenopathy. Bones/joints: No acute fracture. The spine demonstrates moderate degenerative changes at multiple levels. Soft tissues: Unremarkable. IMPRESSION: 1. No pulmonary artery embolism demonstrated. 2. Ascending aorta dilated to 3.7 cm. 3. Coronary artery disease, status post stenting. 4. Emphysema. 5. Cardiomegaly. FINDINGS: Liver: Liver normal in size. Multiple varying sized hepatic lesions have increased slightly in size. Gallbladder and biliary ducts: Small gallstones. No biliary ductal dilatation. Pancreas: Pancreatic atrophy. No ductal dilatation. Spleen: Normal. No splenomegaly. Adrenal glands: Normal. No mass. Kidneys and ureters: Homogeneous enhancement of renal parenchyma. 2.2 cm simple cyst in lower pole of right kidney. No hydronephrosis. Stomach and bowel: Unremarkable. No obstruction. No mucosal thickening. Appendix: No evidence of appendicitis. Intraperitoneal space: Unremarkable. No free air. No significant fluid collection. Vasculature: Unremarkable. No abdominal aortic aneurysm. Lymph nodes: Unremarkable. No enlarged lymph nodes. Urinary bladder: Unremarkable as visualized Reproductive: Enlarged prostate Bones/joints: There is an acute, minimally displaced and impacted subcapital fracture of right femur. No subluxation. The spine demonstrates mild degenerative changes at multiple levels. Prominent Schmorl's node extends through inferior endplate of T12 vertebra. Soft tissues: Unremarkable. IMPRESSION: 1. Acute right hip fracture. 2. 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 3. Gallstones. Thank you for allowing us to participate in the care of your patient. Dictated and Authenticated by: Bebeto Winters DO 08/07/2025 5:24 AM Eastern Time ([place] & [place]) Critical Care Time Critical Care Time Critical Care Time: Yes Total Critical Care Time: 45 Attestation: Upon my evaluation, this patient had a high probability of imminent or life- threatening deterioration, which required my direct attention, intervention, and personal management. I have personally provided 45 minutes of critical care time exclusive of time spent on separately billable procedures. Time includes review of laboratory data, radiology results, discussion with consultants, and monitoring for potential decompensation. Interventions were performed as documented. PFSH All Active Problems (Updated 08/07/25 @ 07:23 by Pop Merritt DO) Non-ST elevation FL (NSTEMI) (Acute) Closed right hip fracture (Acute) Abnormal CT scan (Acute) Metastasis to liver (Acute) Enlarged prostate (Acute) Weight loss, abnormal (Acute) Cancer of neck (Acute) Weight disorder (Acute) Depression (Chronic) Nail dystrophy (Acute) Elevated TSH (Acute) Coronary artery disease (Chronic) Coordination impairment (Acute) Neck mass (Acute) Impacted cerumen, bilateral (Acute) History of smoking (Acute) Urinary frequency (Acute) Tongue ulcer (Acute) Tongue sore (Acute) Imbalance (Acute) Memory loss (Acute) Carotid stenosis (Acute) B12 deficiency (Acute) Secondary polycythemia (Chronic) Macrocytosis (Chronic) Parkinsons disease (Chronic) Elevated MCV (Acute) Acute CVA (cerebrovascular accident) (Acute) Advance care planning (Acute) BPH (benign prostatic hyperplasia) (Chronic) History of intravascular stent placement (Chronic) ASCVD (arteriosclerotic cardiovascular disease) (Chronic) Cyst of kidney, acquired (Chronic) RIGHT; stent placed approx. 2 1/2 years ago Diverticulosis of colon without diverticulitis (Chronic) SIGMOID COLECTOMY; unable to have another colonoscopy due to cost Hyperlipidemia (Chronic) Lumbar disc prolapse with compression radiculopathy (Chronic 08/03/07) 02/06 MRI: L5/S1 DISC HERNIATION Polycythemia vera (Chronic) secondary to smoking Right shoulder pain (Chronic 07/22/15) Essential hypertension (Chronic 06/27/13) Chronic pain disorder (Chronic) CONTRACT 01/19/16 06/06/17 CONTROLLED SUBSTANCE AGREEMENT~RENEWED Medical History Delirium NSTEMI (non-ST elevated myocardial infarction) Acute electrocardiogram changes Syncope Tongue cancer Smoker History of alcoholism H/O sigmoidoscopy Smoker Herpes zoster 06/04/05 OD Alcohol abuse 10/03/08 quit 2004 Surgical History S/P partial glossectomy 09/22/2021 History of intravascular stent placement Stent placement Sigmoidoscopy (~10/1998) Family History Mother Neoplasm lung Father , BLOOD CLOT at age 84. Heart disease Brother Diabetes Heart disease Grandfather No problems noted. Grandfather No problems noted. Grandmother No problems noted. Grandmother No problems noted. Sister No problems noted. Sister No problems noted. Sister No problems noted. Brother Neoplasm Brother Stroke Son No problems noted. Daughter No problems noted. Daughter No problems noted. Social History Smoking/Tobacco Use Status: Current every day Tobacco Type: cigarettes Tobacco: How many years used: 50 Smokeless tobacco user: chewing tobacco Quit status: considering quitting Second Hand Exposure: Yes Counseling given: counseling >10 minutes Smoking risk assessment performed?: Yes Alcohol Intake: former Drug use: Never Substance use type: does not use Caregiver/Support person: No Household members: none Housing: house Do you need help understanding health information?: Often Pets and animals: Yes Pets and animals: cat(s) and dog(s) Sexually active: Yes Do you think of yourself as: straight/heterosexual Current gender identity: male What is your relationship status?: How often do you talk on the phone with friends or family?: three or more times per week How often do you get together with friends or relatives?: three or more times per week How often do you attend mormon or adventism services?: decline to answer Do you belong to any clubs or organized social groups?: no Panel score (0-1 are the most socially isolated patients): 2 What type of physical activity do you participate in: none Duration: 45-60 minutes/day Frequency: 1-2 times per week Rubia/Anabaptist: Anglican Special rubia needs: No Seatbelt use: always Helmet use: Yes Helmet use: always Drive intox or ride w/intox ambulance driver paramedic: No Do you feel safe at home: Yes Do you feel safe in your relationship?: Yes
--- NOTE | 2025-08-07 02:45 | RT.EKG_ITS ---
APPROVED REPORT Exam: Resting ECG Reason for Exam: posterior Patient Location: E HR:87 bpm ECG Measurements Heart Rate 87 AXIS ID 150 P -26 QRSd 86 QRS 18 QT 465 T 241 QTc 559 Conclusion Sinus rhythm...normal P axis, V-rate 60- 99 Repol abnrm, probable ischemia, anterior lds...ST dep, T neg, V2-V4 Prolonged QT interval...QTc >500mS Physician: POSTERIOR EKG, No STEMI
--- NOTE | 2025-08-07 02:45 | DI.RAD_ITS ---
Exam(s) XR PELVIS AP XR FEMUR RT EXAM: XR PELVIS AP and XR femur RT CLINICAL HISTORY: Right hip pain after fall. TECHNIQUE: 2D digital imaging was performed.Six images were obtained. COMPARISON: There are no priors for comparison. FINDINGS: BONES: There is an acute impacted and mildly displaced subcapital fracture of the right femur. No bony destructive lesion is seen. The distal femur is unremarkable. JOINTS: No dislocation present. There is asymmetric joint space narrowing in the hips bilaterally consistent with osteoarthritis. SOFT TISSUE: There is contrast seen in the urinary bladder from the patient's CT examination performed the same day. Extensive atherosclerotic calcification is present. IMPRESSION: 1. Acute impacted subcapital right femoral neck fracture. 2. The preliminary [facility] report was reviewed. DATA REPOSITORY: RADIATION DOSE DELIVERED:
--- NOTE | 2025-08-07 02:57 | DI.CT_ITS ---
Exam(s) CT CHEST PE ABD PELVIS W EXAM: CT CHEST PE ABD PELVIS W CLINICAL HISTORY: Fall, syncope, history of cancer, fever. TECHNIQUE: Imaging Protocol: Axial CT angiography was performed with multi- slice acquisition and multi-planar and/or 3D reconstructions. Computer aided detection (CAD) was utilized. CONTRAST MATERIAL: Intravenous: Omnipaque 350contrast volume:75 mL COMPARISON: CT CT NECK CHEST W from 05/03/[address] NECK CHEST ABD PEL W from 07/25/2025 FINDINGS: CHEST: Tracheobronchial tree: Patent where visualized. No evidence of bronchiectasis. Pulmonary parenchyma: Moderate emphysematous changes are present in the lungs. There are dependent atelectatic changes in the lung bases. There are no focal consolidating infiltrates present. Pulmonary Arteries: No evidence of filling defect to suggest pulmonary emboli. Mediastinum and Aura: No dominant adenopathy or fluid collection. The esophagus is unremarkable. Visualized thyroid gland: Unremarkable. Pleura: No effusion or pneumothorax. Heart: Mild cardiomegaly. Extensive 3 vessel coronary artery calcification is present. No pericardial effusion. Aorta: The ascending thoracic aorta measures 3.6 x 3.7 cm. No evidence of dissection. Atherosclerotic calcification is present. Bones: Within normal limits for the patient's age. Soft tissues: Unremarkable. ABDOMEN: Liver: Normal density. There again seen several hepatic masses consistent with metastatic disease. The largest measures 5.9 x 6 cm and is located in the right lobe. Portal, Superior Mesenteric, and Splenic Veins: Unremarkable. Gallbladder and Biliary Tract: There are gallstones present. There is no biliary ductal dilatation. Pancreas: Normal density, no abnormal calcifications or inflammatory process. Spleen: There are calcified granuloma in the spleen. Adrenals: No masses seen. Kidneys: Normal size, contour and axis. No radiodense stones or obstructive uropathy. There is a simple cyst in the right kidney. No follow-up is recommended. Abdominal Aorta: Abdominal portion non-dilated. Extensive atherosclerotic calcification is present and involving the celiac artery, superior mesenteric artery, both renal arteries and the iliac arteries. Bowel: There is an anastomosis in the sigmoid colon. There is no evidence of bowel obstruction or bowel wall thickening. There is no evidence of an appendicitis. Peritoneal Cavity: No ascites, collection or mesenteric inflammatory response. No free air. Lymph Nodes: Within normal limits. Bones: Within normal limits for the patient's age. There are Schmorl's nodes seen at the endplates of T12, L2 and L3. Soft Tissues: There is a small fat containing right inguinal hernia. PELVIS: Bladder: There is a diverticulum seen in the posterior right aspect of the urinary bladder. Reproductive Organs: The prostate gland is enlarged and impinges upon the base of the urinary bladder. Lymph Nodes: There is an acute fracture through the right femoral neck which is impacted. Bones: Within normal limits. IMPRESSION: 1. There is no acute abdominal or pelvic organ injury. 2. Impacted and displaced subcapital right femoral neck fracture. 3. There again seen multiple hepatic masses consistent with metastatic disease. 4. There is no evidence of a pulmonary embolism or thoracic aortic dissection. 5. There is no acute pulmonary process. 6. The preliminary [facility] report was reviewed. RADIATION DOSE DELIVERED: 328.72mGy.cm Total DLP DATA REPOSITORY: All CT scans at this facility are submitted to the National Radiology Data Registry (NRDR) Dose Index Registry (DIR) with the [employer] (ACR). RADIATION OPTIMIZATION: All CT scans at this facility use at least one of these dose optimization techniques: automated exposure control; mA and/or kV adjustment per patient size (includes targeted exams where dose is matched to clinical indication); or iterative reconstruction.
[2025-08-07 03:20] LABS: Abs Immature Grans 0.08 10^3/uL (0.0-0.06); HCT 37.2 % (40.0-50.0); HGB 12.6 g/dL (13.5-17.5); Immature Grans % 0.9 %; MCH 30.3 pg (27.0-33.0); MCHC 33.9 % (32.0-36.0); MCV 89 fL (80-95); MPV 9.2 fL (8.0-11.0); Platelet Count 227 10^3/uL (130-400); RBC 4.16 10^6/uL (4.36-5.78); RDW 13.8 % (11.8-14.1); RDW-SD 44.6 fL; WBC 8.44 10^3/uL (4.4-10.8)
[2025-08-07] MEDS: Normal Saline Flush 10 ML SYR IVP (03:25)
[2025-08-07] MEDS: Omnipaque 350 MG/ML 100 ML BTL IJ (03:25)
[2025-08-07] MEDS: Normal Saline - Diluent 50 ML VIAL IJ (03:25)
[2025-08-07] MEDS: ACETAMINOPHEN 1,000 MG/100 ML BAG 400 MG IVPB (03:32)
[2025-08-07] MEDS: Lidocaine 5% Patch 1 PATCH TP (03:32)
[2025-08-07 03:33] LABS: INR 1.0 (0.9-1.1); PTT Activated 26.7 sec (20.6-30.2); Prothrombin Time 10.4 sec (9.1-11.1)
[2025-08-07 03:39] LABS: Troponin I 44 ng/L (<54)
[2025-08-07 03:40] LABS: ALT 35 U/L (10-49); AST 50 U/L (<34); Albumin 4.4 g/dL (3.2-5.0); Alkaline Phosphatase 171 U/L (46-116); Anion Gap 8.2 mmol/L (3-11); BUN 19 mg/dL (9-23); Bilirubin, Total 0.80 mg/dL (0.2-1.2); CO2 26.8 mmol/L (20.0-31.0); Calcium 9.3 mg/dL (8.3-10.6); Chloride 102 mmol/L (98-107); Creatine Kinase 147 U/L (46-171); Glucose 115 mg/dL (74-106); Potassium 4.0 mmol/L (3.5-5.1); Sodium 137 mmol/L (136-145); Total Protein 7.0 g/dL (5.7-8.2)
--- NOTE | 2025-08-07 05:00 | DI.CT_ITS ---
Exam(s) CT HEAD CERVICAL SPINE WO EXAM: CT HEAD CERVICAL SPINE WO CLINICAL HISTORY: fall, hit head, midline pain at C2. TECHNIQUE: Imaging Protocol: Axial computed tomography images with coronal and sagittal reformatted images were created and reviewed COMPARISON: CT CT HEAD CERVICAL SPINE WO from 06/14/[address] HEAD WO from 06/16/[address] HEAD WO/W from 07/25/2025 FINDINGS: CT Head: Ventricles and Extra axial spaces: Normal in size and morphology for the patient's age. Hemorrhage: None. Cerebral parenchyma: There are areas of decreased attenuation in the white matter consistent with chronic microvascular ischemic disease. There is no evidence of an acute territorial infarct. Midline shift: None. Brainstem/Cerebellum: Normal. Calvarium: Normal. Visualized Paranasal sinuses/Mastoids: There is mucosal thickening in the visualized paranasal sinuses. The mastoid air cells are clear. Soft Tissues: Unremarkable. CT Cervical Spine: Bones: No acute fracture or subluxation. Age-appropriate degenerative changes are present. There is straightening of the normal cervical lordosis. This may be due to muscle spasm or patient positioning. Soft Tissues: Atherosclerotic calcification is present. Lung Apices: Clear. IMPRESSION: 1. No acute intracranial process. 2. No acute fracture or subluxation in the cervical spine. 3. The preliminary [facility] report was reviewed. RADIATION DOSE DELIVERED: 1,297.41mGy.cm Total DLP DATA REPOSITORY: All CT scans at this facility are submitted to the National Radiology Data Registry (NRDR) Dose Index Registry (DIR) with the [employer] ([employer]). RADIATION OPTIMIZATION: All CT scans at this facility use at least one of these dose optimization techniques: automated exposure control; mA and/or kV adjustment per patient size (includes targeted exams where dose is matched to clinical indication); or iterative reconstruction.
[2025-08-07 05:11] LABS: Troponin I 235 ng/L (<54)
[2025-08-07 05:16] LABS: COVID-19 PCR Negative (Negative); RSV PCR Negative (Negative)
--- NOTE | 2025-08-07 05:25 | DI.[facility]_ITS ---
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 Initial report created on 08/07/2025 5:24:50 AM EST: PROCEDURE INFORMATION: Exam: CTA Chest With Contrast Exam date and time: 08/07/2025 3:25 AM Age: 80 years old Clinical indication: Prior surgery; Surgery date: 6+ months; Surgery type: Heart stents; Fall, syncope, history of cancer, fever TECHNIQUE: Imaging protocol: Computed tomographic angiography of the chest with contrast. Exam focused on the arteries. 3D rendering (Not supervised by radiologist): MIP and/or 3D reconstructed images were created by the technologist. Radiation optimization: All CT scans at this facility use at least one of these dose optimization techniques: automated exposure control; mA and/or kV adjustment per patient size (includes targeted exams where dose is matched to clinical indication); or iterative reconstruction. Contrast material: OMNIPAQUE 350; Contrast volume: 75 ml; Contrast route: INTRAVENOUS (IV); COMPARISON: CT NECK CHEST ABD PEL W 07/25/2025 2:35 PM FINDINGS: Pulmonary arteries: Main pulmonary artery normal in caliber. No pulmonary artery filling defects. Aorta: Ascending aorta dilated to 3.7 cm. No aortic dissection. Lungs: Mild emphysema. There is minimal bibasilar atelectasis. No parenchymal consolidation. Pleural spaces: No pneumothorax or pleural effusions. Heart: Heart minimally enlarged. Heart RV/LV ratio: 1.0 Coronary arteries: Coronary artery calcification. Stented left anterior descending coronary artery. Lymph nodes: No adenopathy. Bones/joints: No acute fracture. The spine demonstrates moderate degenerative changes at multiple levels. Soft tissues: Unremarkable. IMPRESSION: 1. No pulmonary artery embolism demonstrated. 2. Ascending aorta dilated to 3.7 cm. 3. Coronary artery disease, status post stenting. 4. Emphysema. 5. Cardiomegaly. PROCEDURE INFORMATION: Exam: CT Abdomen And Pelvis With Contrast Exam date and time: 08/07/2025 3:25 AM Age: 80 years old Clinical indication: Prior surgery; Surgery date: 6+ months; Surgery type: Heart stents; Fall, syncope, history of cancer, fever TECHNIQUE: Imaging protocol: Computed tomography of the abdomen and pelvis with contrast. Radiation optimization: All CT scans at this facility use at least one of these dose optimization techniques: automated exposure control; mA and/or kV adjustment per patient size (includes targeted exams where dose is matched to clinical indication); or iterative reconstruction. Contrast material: OMNIPAQUE 350; Contrast volume: 75 ml; Contrast route: INTRAVENOUS (IV); COMPARISON: CT NECK CHEST ABD PEL W 07/25/2025 2:35 PM FINDINGS: Liver: Liver normal in size. Multiple varying sized hepatic lesions have increased slightly in size. Gallbladder and biliary ducts: Small gallstones. No biliary ductal dilatation. Pancreas: Pancreatic atrophy. No ductal dilatation. Spleen: Normal. No splenomegaly. Adrenal glands: Normal. No mass. Kidneys and ureters: Homogeneous enhancement of renal parenchyma. 2.2 cm simple cyst in lower pole of right kidney. No hydronephrosis. Stomach and bowel: Unremarkable. No obstruction. No mucosal thickening. Appendix: No evidence of appendicitis. Intraperitoneal space: Unremarkable. No free air. No significant fluid collection. Vasculature: Unremarkable. No abdominal aortic aneurysm. Lymph nodes: Unremarkable. No enlarged lymph nodes. Urinary bladder: Unremarkable as visualized. Reproductive: Enlarged prostate Bones/joints: There is an acute, minimally displaced and impacted subcapital fracture of right femur. No subluxation. The spine demonstrates mild degenerative changes at multiple levels. Prominent Schmorl's node extends through inferior endplate of T12 vertebra. Soft tissues: Unremarkable. IMPRESSION: 1. Acute right hip fracture. 2. 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 3. Gallstones. Dictated and Authenticated by: Bebeto Winters MD. Orderin Shaina Lord MD
--- NOTE | 2025-08-07 05:26 | DI.[facility]_ITS ---
PROCEDURE INFORMATION: Exam: XR Pelvis Exam date and time: 08/07/2025 4:09 AM Age: 80 years old Clinical indication: Injury or trauma; Other: Pain after fall; Injury date: 08/07/25 TECHNIQUE: Imaging protocol: Radiologic exam of the pelvis. Views: 1 or 2 view. COMPARISON: CT CHEST PE ABD PELVIS W 08/07/2025 3:25 AM FINDINGS: Bones/joints: Acute impacted subcapital fracture of right femur. Soft tissues: Unremarkable. IMPRESSION: Acute right hip fracture. Dictated and Authenticated by: Bebeto Winters MD. Orderin Shaina Lord MD
--- NOTE | 2025-08-07 05:29 | DI.[facility]_ITS ---
PROCEDURE INFORMATION: Exam: XR Right Femur Exam date and time: 08/07/2025 4:13 AM Age: 80 years old Clinical indication: Thigh; Right; Pain after fall TECHNIQUE: Imaging protocol: Radiologic exam of the right femur. Views: 2 views. COMPARISON: CR XR HIP RT COMPLETE AP PELVIS 08/07/2025 4:09 AM FINDINGS: Bones/joints: Acute impacted subcapital fracture of right femur. No subluxation Soft tissues: Unremarkable. Organs: Right bladder diverticulum. Vasculature: Extensive vascular calcification. IMPRESSION: Acute right hip fracture. Dictated and Authenticated by: Bebeto Winters MD. Orderin Shaina Lord MD
[2025-08-07 05:43] LABS: Glucose Negative (Negative)
--- NOTE | 2025-08-07 06:43 | NUR.NOTE ---
Nursing Note: Daughter Madonna @ bedside. Spoke with other daughter on the phone who is the daughter to manage his meds. She is on her way in. Pt has had no chest pain, no signs of st elevation. Continues to have a headache, awaiting results of CT. Pt remains A&O, pleasant and cooperative. Notified of search for hospital to provide care for fractured hip.
--- NOTE | 2025-08-07 06:54 | DI.[facility]_ITS ---
PROCEDURE INFORMATION: Exam: CT Head Without Contrast Exam date and time: 08/07/2025 5:15 AM Age: 80 years old Clinical indication: Injury or trauma; Blunt trauma (contusions or hematomas); Without loss of consciousness; Injury date: 08/07/25; Injury details: Fall, hit head, midline pain at c2 TECHNIQUE: Imaging protocol: Computed tomography of the head without contrast. Radiation optimization: All CT scans at this facility use at least one of these dose optimization techniques: automated exposure control; mA and/or kV adjustment per patient size (includes targeted exams where dose is matched to clinical indication); or iterative reconstruction. COMPARISON: CT HEAD WO/W 07/25/2025 2:33 PM FINDINGS: Brain: Mild to moderate involutional changes of the brain parenchyma. Mild low attenuation in the periventricular white matter. This is a nonspecific finding most commonly seen in setting of microvascular ischemic change. No evidence of acute infarct. No intraparenchymal hemorrhage. No midline shift or mass effect. No extra-axial fluid collections or hemorrhage. Cerebral ventricles: No ventriculomegaly. Paranasal sinuses: Partial opacification of bilateral ethmoid air cells and right frontal sinus. Mastoid air cells: Visualized mastoid air cells are well aerated. Bones: Unremarkable. No acute fracture. Soft tissues: Unremarkable. IMPRESSION: 1. No evidence of acute intracranial abnormality. 2. Please refer to separately dictated report for cervical spine CT for description of findings in this region. PROCEDURE INFORMATION: Exam: CT Cervical Spine Without Contrast Exam date and time: 08/07/2025 5:15 AM Age: 80 years old Clinical indication: Injury or trauma; Blunt trauma (contusions or hematomas); Without loss of consciousness; Injury date: 08/07/25; Injury details: Fall, hit head, midline pain at c2 TECHNIQUE: Imaging protocol: Computed tomography of the cervical spine without contrast. Radiation optimization: All CT scans at this facility use at least one of these dose optimization techniques: automated exposure control; mA and/or kV adjustment per patient size (includes targeted exams where dose is matched to clinical indication); or iterative reconstruction. COMPARISON: CT HEAD CERVICAL SPINE WO 06/14/2023 3:14 PM FINDINGS: Bones: Mild reversal of the normal cervical lordosis. No acute or suspicious osseous abnormalities. Moderate multilevel degenerative changes of the cervical spine, with findings including disc space narrowing, uncovertebral hypertrophy, facet arthropathy, marginal osteophytes, and posterior disc osteophyte complexes, greatest at C5 through C7. Lungs: Lung apices are normal. Vasculature: Marked atherosclerotic calcification of the right proximal internal carotid artery. Moderate atherosclerotic calcification of bilateral carotid bulbs. Soft tissues: Unremarkable. IMPRESSION: 1. No evidence of acute fracture or subluxation of the cervical spine. 2. Marked atherosclerotic calcification of the right proximal internal carotid artery, where there may be an underlying stenosis. Recommend nonemergent carotid ultrasound for further evaluation. 3. Moderate atherosclerotic calcification of bilateral carotid bulbs. 4. Please refer to separately dictated report for head CT for description of findings in this region. Dictated and Authenticated by: Ora Schwarz MD. Orderin Shaina Lord MD
[2025-08-07] MEDS: Ketorolac 15 MG/ML VIAL IVP (07:22)
[2025-08-07] MEDS: Aspirin 325 MG TAB PO (07:23)
[2025-08-07] MEDS: Heparin in 0.45% NaCl 25,000 UNIT/250 ML BAG 7.5 UNIT IVINF (07:28)
[2025-08-07 07:41] LABS: Troponin I 599 ng/L (<54)
== END 2025-08-07 09:39 | disposition short-term general hospital (02) ==
PROVIDERS: Emergency Provider Student in an Organized Health Care Education/Training Program; PCP Family Medicine
DX: S72.011A Unspecified intracapsular fracture of right femur, initial encounter for closed fracture (principal); I21.4 Non-ST elevation (NSTEMI) myocardial infarction; R94.31 Abnormal electrocardiogram [ECG] [EKG]; I25.10 Atherosclerotic heart disease of native coronary artery without angina pectoris; G20.A1 Parkinson's disease without dyskinesia, without mention of fluctuations; Z79.82 Long term (current) use of aspirin; W18.39XA Other fall on same level, initial encounter; Y93.89 Activity, other specified; Y92.019 Unspecified place in single-family (private) house as the place of occurrence of the external cause
CPT/HCPCS: 71275; 73552; 74177; 80053; 82550; 87040; 87637; 93005; 96365; 96375; 99285; 70450; 72125; 72170; 81003; 81015; 83605; 84484; 85025; 85610; 85730; 87086; 93010; J0131; J1644; J1885; J3490

== ENCOUNTER 2025-08-15 15:55 | Outpatient (REF) | payer MEDICARE, SELFPAY ==
[2025-08-15 13:33] LABS: Abs Immature Grans 0.06 10^3/uL (0.0-0.06); HCT 30.8 % (40.0-50.0); HGB 10.4 g/dL (13.5-17.5); Immature Grans % 0.8 %; MCH 29.9 pg (27.0-33.0); MCHC 33.8 % (32.0-36.0); MCV 89 fL (80-95); MPV 9.6 fL (8.0-11.0); Platelet Count 361 10^3/uL (130-400); RBC 3.48 10^6/uL (4.36-5.78); RDW 12.8 % (11.8-14.1); RDW-SD 41.1 fL; WBC 7.23 10^3/uL (4.4-10.8)
[2025-08-15 14:04] LABS: Ammonia 19 umol/L (11-32)
[2025-08-15 14:11] LABS: Magnesium 2.1 mg/dL (1.6-2.6)
[2025-08-15 14:12] LABS: ALT 22 U/L (10-49); AST 32 U/L (<34); Albumin 3.5 g/dL (3.2-5.0); Alkaline Phosphatase 118 U/L (46-116); Anion Gap 12.5 mmol/L (3-11); BUN 20 mg/dL (9-23); Bilirubin, Total 0.8 mg/dL (0.2-1.2); CO2 23.5 mmol/L (20.0-31.0); Calcium 8.6 mg/dL (8.3-10.6); Chloride 104 mmol/L (98-107); Glucose 98 mg/dL (74-106); Potassium 3.4 mmol/L (3.5-5.1); Sodium 140 mmol/L (136-145); Total Protein 5.9 g/dL (5.7-8.2)
[2025-08-16 18:19] LABS: PSA, Diagnostic 26.2 ng/mL (<=6.5)
== END 2025-08-15 15:56 | disposition home or self-care (01) ==
LOC: LBN 15:55
PROVIDERS: PCP Family Medicine; Visit Provider Family Medicine
DX: R74.01 Elevation of levels of liver transaminase levels (principal)
CPT/HCPCS: 80053; 82140; 83735; 84153; 85025